=== PATIENT | male | born 1935 | race Caucasian/White ===

== ENCOUNTER 2016-12-24 11:36 | Inpatient (IN) | payer OTHER ==
[2016-12-24 11:41] VITALS: BMI 26.6
[2016-12-24] MEDS ORDERED: NS 1000 ML 1,000 ML ONE ×2 (11:50→13:03)
--- NOTE | 2016-12-24 11:53 | DR.DIZZY ---
HPI - Time seen Time seen: 11:48 - PCP Primary Care Physician: YANIRA - Complaint Chief Complaint Doctor Comments: Patient admits to having a virus. His grandson had it last week and now he has it, just dont feel well. Denies cardipulmonary disease no pain, vomitn or diarrhea. Chief Complaint:: PT. C/O GENERALIZED WEAKNESS, NO APPEPTITE, DEHYDRATION. PT. DENIES PAIN. - Source History Provided: Patient, Family Member - Mode of Arrival Mode of Arrival: Wheelchair - Timing Onset of Chief Complaint: 12/18/16 - Duration Duration: Since Onset Duration: Days - Location of Weakness Weakness Location: None - Context Does pt take pot. toxic medication?: No History of: None Stroke Symptoms: None. denies: Weakness of limb, Numbness of limbs - Severity Severity: Normal activity level - Modifying factors Worsens: Nothing - Associated signs and symptoms Associated Signs and Symptoms: Weak PMH - PMH Past Medical History: Yes Past Medical History: Dyslipidemia, GERD, Hypertension Past Surgical History: Yes Surgical History: Appendectomy, Cholecystectomy - Family History History of Family Medical Conditions: Yes Family Medical History: Diabetes Mellitus, Cancer, [place] - Social History Does patient currently use any type of tobacco product: Yes Have you used tobacco products in the last 12 months: Yes Type of Tobacco Use: Cigarettes Does any household member use tobacco: No Alcohol Use: None Do you use any recreational Drugs:: No Lives With: Spouse Lives Where: Home - infectious screening In the last 2 months have you had wt loss of >10#?: NO Have you had fever, night sweats or hemotysis?: No Have you traveled outside the country in the last 6 months?: No Isolation: Standard ROS - Review of Systems Constitutional: No Symptoms Reported, See HPI, Chills Eyes: No Symptoms Reported ENTM: No Symptoms Reported Respiratoy: No Symptoms Reported Cardiovascular: No Symptoms Reported Gastrointestinal/Abdominal: Nausea. negative: Diarrhea Genitourinary: No Symptoms Reported Neurological: Weakness Musculoskeletal: No Symptoms Reported Integumentary: No Symptoms Reported, Other (cap refill prolonged) Hematologic/Lymphatic: No Symptoms Reported Endocrine: No Symptoms Reported Psychiatric: No Symptoms Reported All Other Systems: Reviewed and Negative PE - Vital Signs Vitals: Temperature 98.8 F Pulse Rate 144 Respiratory Rate 18 Blood Pressure 93/66 O2 Sat by Pulse Oximetry 98 - General Limitations: No Limitations General Appearance: Anxious - Head Head Exam: Normal Inspection, Atraumatic - Eyes Eye exam: Normal Appearance, PERRL, EOMI Pupils: Regular, Round: Left Sclera/Conjunctival: Normal Inspection: Bilateral Anterior Chamber: Normal Inspection: Bilateral Posterior Chamber: Deferred: Bilateral - ENT ENT Exam: Mucous Membranes Dry - Neck Neck Exam: Normal Inspection, Full ROM - Chest Chest Inspection: Normal Inspection, Symmetric Chest Wall Rise - Respiratory Respiratory Exam: Normal Lung Sounds Bilat Respiratory Exam: Bilateral Clear to Auscultation - Cardiovascular Cardiovascular Exam: Tachycardia - Abdominal Exam Abdominal Exam: Normal Inspection, Normal Bowel Sounds Abdominal Tenderness: negative: RUQ, RLQ, LUQ, LLQ, Epigastrium, Suprapubic, Diffuse, Mild, Moderate, Severe, Other - Rectal Rectal Exam: Deferred - Extremeties Extremities Exam: negative: Tenderness, Normal Capillary Refill, Edema, Joint Swelling, Calf Tenderness - Back Back Exam: Normal Inspection - Neurologic Neurological Exam: Alert, Oriented X3, CN II-XII Intact Speech: Expressive Aphasia Cranial Nerve Exam: EOM Function (II, III, IV, ): Normal, Facial Sensation (V) : Normal Motor Strength - LUE: 3/5 Motor Strength - RUE: 3/5 Motor Strength - LLE: 3/5 Motor Strength - RLE: 3/5 Upper Motor Neuron Exam: Jadon Neglect: Normal Sensory Exam Upper Extremity: Light Touch: Normal Sensory Exam Lower Extremity: Light Touch: Normal DTR: achilles tendon (L): 3+ - Psychiatric Psychiatric Exam: Normal Affect, Normal Mood. negative: Homicidal Ideation, Suicidal Ideation - Skin Skin Exam: Warm, Dry, Intact Course - Reevaluation 1st: Improved - Consultation Called: 13:30 (Admit for further evaluation and treatment) ROR - Labs Reviewed Laboratory Results Reviewed?: Yes (pot low, bun elevated, creat elevated glucose elevated) Result Diagrams: 12/24/16 11:50 12/24/16 11:50 Laboratory: WBC 4.7 X10^3/uL (3.6-10.0) 12/24/16 11:50 RBC 5.53 X10^6/uL (4.7-6.0) 12/24/16 11:50 Hgb 16.9 g/dL (13.5-18.0) 12/24/16 11:50 Hct 49.0 % (42.0-54.0) 12/24/16 11:50 MCV 88.6 fL (80.0-100.0) 12/24/16 11:50 MCH 30.6 pg (27.0-34.0) 12/24/16 11:50 MCHC 34.6 g/dL (33.0-35.0) 12/24/16 11:50 RDW 13.6 % (11.6-16.5) 12/24/16 11:50 Plt Count 77 X10^3/uL (150.0-450.0) L 12/24/16 11:50 MPV 9.1 fL (7.4-11.0) 12/24/16 11:50 Neut % 85.9 % (42.0-75.0) H 12/24/16 11:50 Lymph % 7.2 % (21.0-51.0) L 12/24/16 11:50 [place] % 6.5 % (0.0-13.0) 12/24/16 11:50 Eos % 0.1 % (0.9-2.9) L 12/24/16 11:50 Baso % 0.3 % (0.2-1.0) 12/24/16 11:50 Neut # 4.0 x10^3/uL (2.2-4.8) 12/24/16 11:50 Lymph # 0.3 X10^3/uL (1.3-2.9) L 12/24/16 11:50 [place] # 0.3 x10^3/uL (0.3-0.8) 12/24/16 11:50 Eos # 0.0 x10^3/uL (0.0-0.2) 12/24/16 11:50 Baso # 0.0 X10^3/uL (0.0-0.1) 12/24/16 11:50 Absolute Nucleated RBC 0.1 /100WBC 12/24/16 11:50 Sodium 137 mmol/L (136-145) 12/24/16 11:50 Corrected Sodium 140 mmol/L (136-145) 12/24/16 11:50 Potassium 3.4 mmol/L (3.5-5.1) L 12/24/16 11:50 Chloride 100 mmol/L (98-107) 12/24/16 11:50 Carbon Dioxide 25.0 mmol/L (21-32) 12/24/16 11:50 BUN 40 mg/dL (7-18) H 12/24/16 11:50 Creatinine 2.46 mg/dL (0.70-1.30) H 12/24/16 11:50 Est GFR (MDRD) Af Amer 33 (>60) L 12/24/16 11:50 Est GFR (MDRD) Non-Af 27 (>60) L 12/24/16 11:50 Glucose 226 mg/dL (65-99) H 12/24/16 11:50 Calcium 8.8 mg/dL (8.5-10.1) 12/24/16 11:50 Corrected Calcium TNP 12/24/16 11:50 Phosphorus 2.9 mg/dL (2.6-4.7) 12/24/16 11:50 Magnesium 1.9 mg/dL (1.7-2.9) 12/24/16 11:50 Total Bilirubin 0.60 mg/dL (0.2-1.0) 12/24/16 11:50 AST 32 Units/L (15-37) 12/24/16 11:50 ALT 43 Units/L (12-78) 12/24/16 11:50 Alkaline Phosphatase 85 Units/L (46-116) 12/24/16 11:50 Creatine Kinase 56 Units/L (39-308) 12/24/16 11:50 CK-MB (CK-2) < 1.0 ng/mL (0-4.0) 12/24/16 11:50 CK/CKMB % Calc 1.8 % (<4) 12/24/16 11:50 Troponin I < 0.02 ng/mL (0-1.5) 12/24/16 11:50 C-Reactive Protein 31.70 mg/L (0-3.0) H 12/24/16 11:50 Total Protein 7.6 g/dL (6.4-8.2) 12/24/16 11:50 Albumin 3.5 g/dL (3.4-5.0) 12/24/16 11:50 Globulin 4.1 g/dL (2.5-4.5) 12/24/16 11:50 Albumin/Globulin Ratio 0.9 Ratio (1.1-2.1) L 12/24/16 11:50 - XRAY XRAY Interpreted by: Radiologist - EKG Rhythm: Afib Block: AVB - Diagnosis Discharge Problem: Dehydration, Acute prerenal azotemia A-fib Qualifiers: Atrial fibrillation type: unspecified Qualified Code(s): I48.91 - Unspecified atrial fibrillation - Discharge Plan Condition: Stable - Follow ups/Referrals Follow ups/Referrals: NFD,None [Primary Care Provider] - 3 days - Instructions
[2016-12-24] MEDS ORDERED: NS 1000 ML 1,000 ML IV ONE (11:55)
[2016-12-24 12:13] LABS: BASOPHILS % (AUTO) 0.3 % (0.2-1.0); EOSINOPHILS % (AUTO) 0.1 % (0.9-2.9); HEMOGLOBIN 16.9 g/dL (13.5-18.0); LYMPHOCYTES # (AUTO) 0.3 X10^3/uL (1.3-2.9); LYMPHOCYTES % (AUTO) 7.2 % (21.0-51.0); MEAN CORPUSCULAR HEMOGLOBIN 30.6 pg (27.0-34.0); MEAN CORPUSCULAR HGB CONC 34.6 g/dL (33.0-35.0); MEAN CORPUSCULAR VOLUME 88.6 fL (80.0-100.0); MEAN PLATELET VOLUME 9.1 fL (7.4-11.0); MONOCYTES # (AUTO) 0.3 x10^3/uL (0.3-0.8); MONOCYTES % (AUTO) 6.5 % (0.0-13.0); NEUTROPHILS % (AUTO) 85.9 % (42.0-75.0); PLATELET COUNT 77 X10^3/uL (150.0-450.0); RED BLOOD COUNT 5.53 X10^6/uL (4.7-6.0); RED CELL DISTRIBUTION WIDTH 13.6 % (11.6-16.5); WHITE BLOOD COUNT 4.7 X10^3/uL (3.6-10.0)
[2016-12-24 12:25] LABS: BLOOD UREA NITROGEN 40 mg/dL (7-18); CALCIUM 8.8 mg/dL (8.5-10.1); CHLORIDE 100 mmol/L (98-107); COR NA(FOR HYPERGLY) 140 mmol/L (136-145); CREATININE 2.46 mg/dL (0.70-1.30); GLUCOSE 226 mg/dL (65-99); SODIUM 137 mmol/L (136-145); TROPONIN I < 0.02 ng/mL (0-1.5); eGFR BLACK RACES 33 (>60); eGFR NON BLACK RACES 27 (>60)
[2016-12-24 12:29] LABS: ALANINE AMINOTRANSFERASE 43 Units/L (12-78); ALBUMIN 3.5 g/dL (3.4-5.0); ALKALINE PHOSPHATASE 85 Units/L (46-116); ASPARTATE AMINO TRANSFERASE 32 Units/L (15-37); CKMB % 1.8 % (<4); CREATINE KINASE 56 Units/L (39-308); CREATINE KINASE MB < 1.0 ng/mL (0-4.0); TOTAL PROTEIN 7.6 g/dL (6.4-8.2)
[2016-12-24 12:48] LABS: MAGNESIUM 1.9 mg/dL (1.7-2.9); PHOSPHORUS 2.9 mg/dL (2.6-4.7)
[2016-12-24] MEDS ORDERED: ZOFRAN INJ 4 MG VIAL IVP PRN (13:46)
[2016-12-24] MEDS ORDERED: MORPHINE SULFATE INJ 2 MG IVP PRN (13:47)
[2016-12-24] MEDS ORDERED: [UNRECOGNIZED DRUG - OTHER] PO PRN (13:48)
[2016-12-24] MEDS ORDERED: BENTYL CAP 10 MG PO PRN (13:48)
[2016-12-24] MEDS ORDERED: HYDROCHLOROTHIAZIDE 25 MG TAB PO SCH (14:00)
[2016-12-24] MEDS ORDERED: NS 1000 ML 1,000 ML IV SCH ×2 (14:00)
--- NOTE | 2016-12-24 14:04 | RAD ---
Chest, one view Indication: Shortness of breath. Comparison: None Findings: There is mild cardiac silhouette enlargement with pulmonary vascular congestion. There is mild coarsening of the interstitium, slightly more prominent on the right. No dense infiltrates, ple ural effusion, or pneumothorax identified. Impression: Cardiomegaly with suggestion of mild asymmetric pulmonary edema. Reported By:
[2016-12-24 14:05] LABS: BILIRUBIN,URINE NEGATIVE (NEGATIVE); BLOOD/HEMOGLOBIN,URINE 1+ (NEGATIVE); GLUCOSE, URINE NEGATIVE (NEGATIVE); KETONES,URINE NEGATIVE (NEGATIVE); LEUKOCYTE ESTERASE ,URINE NEGATIVE (NEGATIVE); NITRITES,URINE NEGATIVE (NEGATIVE); PROTEIN,URINE 1+ (NEGATIVE); UROBILINOGEN,URINE NORMAL (NORMAL)
[2016-12-24 14:21] LABS: APPEARANCE,URINE CLEAR (CLEAR); COLOR,URINE YELLOW (YELLOW)
[2016-12-24 14:22] LABS: AMORPHOUS SEDIMENT,UR TRACE /HPF (NEGATIVE); BACTERIA,URINE NEGATIVE /HPF (NEGATIVE); MUCUS,URINE MODERATE /HPF (NEGATIVE); RBC,URINE RARE /HPF (NEGATIVE); SQUAMOUS EPITHELIAL CELL,UR RARE /HPF (NEGATIVE)
[2016-12-24] MEDS: ROCEPHIN VIAL 1 GM 1 GM in NS 50 ML IV + SPIKE MINIBAG* 50 ML IV SCH (17:11)
[2016-12-24] MEDS: NS 1000 ML 1,000 ML IV SCH ×2 (17:28→21:58)
[2016-12-24] MEDS: LOPRESSOR TAB 25 MG PO SCH (20:53)
[2016-12-24] MEDS: CELEXA PO SCH (20:53)
[2016-12-24] MEDS: PROSCAR PO SCH (20:53)
[2016-12-24] MEDS: ZANTAC PO SCH (20:53)
[2016-12-24] MEDS: XANAX PO PRN (21:57)
[2016-12-25 05:09] LABS: BASOPHILS % (AUTO) 0.4 % (0.2-1.0); EOSINOPHILS % (AUTO) 0.7 % (0.9-2.9); HEMATOCRIT 42.8 % (42.0-54.0); HEMOGLOBIN 14.9 g/dL (13.5-18.0); LYMPHOCYTES # (AUTO) 0.9 X10^3/uL (1.3-2.9); LYMPHOCYTES % (AUTO) 27.7 % (21.0-51.0); MEAN CORPUSCULAR HGB CONC 34.9 g/dL (33.0-35.0); MEAN CORPUSCULAR VOLUME 88.7 fL (80.0-100.0); MEAN PLATELET VOLUME 9.2 fL (7.4-11.0); MONOCYTES # (AUTO) 0.3 x10^3/uL (0.3-0.8); MONOCYTES % (AUTO) 9.2 % (0.0-13.0); PLATELET COUNT 70 X10^3/uL (150.0-450.0); RED BLOOD COUNT 4.82 X10^6/uL (4.7-6.0); RED CELL DISTRIBUTION WIDTH 13.8 % (11.6-16.5); WHITE BLOOD COUNT 3.2 X10^3/uL (3.6-10.0)
[2016-12-25 05:18] LABS: ALANINE AMINOTRANSFERASE 36 Units/L (12-78); ALBUMIN 2.9 g/dL (3.4-5.0); ALKALINE PHOSPHATASE 67 Units/L (46-116); ASPARTATE AMINO TRANSFERASE 28 Units/L (15-37); BLOOD UREA NITROGEN 28 mg/dL (7-18); CALCIUM 8.2 mg/dL (8.5-10.1); CARBON DIOXIDE 24.7 mmol/L (21-32); CHLORIDE 105 mmol/L (98-107); COR CA(FOR HYPOALB) 9.1 mg/dL (8.5-10.1); CREATININE 1.76 mg/dL (0.70-1.30); GLUCOSE 105 mg/dL (65-99); SODIUM 141 mmol/L (136-145); TOTAL PROTEIN 6.6 g/dL (6.4-8.2); eGFR BLACK RACES 48 (>60); eGFR NON BLACK RACES 40 (>60)
--- NOTE | 2016-12-25 06:30 | RAD ---
HISTORY: Atrial fibrillation Study: Chest one view Comparison: December 24, 2016 Findings: The heart is enlarged. No definite congestive heart failure is identified. No acute alveolar infiltr ates or pleural effusions are identified. Bony thorax is unremarkable. IMPRESSION: Cardiomegaly without congestive heart failure Lungs clear Reported By:
[2016-12-25] MEDS ORDERED: ZESTRIL TAB 20 MG ONE (08:27)
[2016-12-25] MEDS ORDERED: K-LYTE EFFERVESCENT PO PRN (08:29)
[2016-12-25] MEDS ORDERED: K-DUR TAB 20 MEQ PO PRN (08:29)
[2016-12-25] MEDS ORDERED: POTASSIUM CHLORIDE LIQ 20 MEQ UDC PO PRN (08:29)
[2016-12-25] MEDS ORDERED: K-RIDER 10 MEQ/NS 100 ML 10 MEQ/100 ML BAG IV PRN (08:29)
[2016-12-25] MEDS: ZANTAC PO SCH (08:51)
[2016-12-25] MEDS: NORVASC TAB 10 MG PO SCH (08:51)
[2016-12-25] MEDS: LOPRESSOR TAB 25 MG PO SCH ×2 (08:51→21:57)
[2016-12-25] MEDS: ROCEPHIN VIAL 1 GM 1 GM in NS 50 ML IV + SPIKE MINIBAG* 50 ML IV SCH (08:51)
[2016-12-25] MEDS: NS 1000 ML 1,000 ML IV SCH ×2 (08:59→21:58)
[2016-12-25] MEDS ORDERED: ZESTRIL TAB 20 MG PO SCH (09:00)
[2016-12-25] MEDS ORDERED: COZAAR PO SCH (09:00)
[2016-12-25] MEDS: XANAX PO PRN ×2 (10:23→21:57)
[2016-12-25 14:37] LABS: TOTAL PSA 1.46 ng/mL (0.13-4.0)
[2016-12-25 14:42] LABS: HEMOGLOBIN A1C 5.9 % (4.5-6.2)
[2016-12-25] MEDS: CELEXA PO SCH (21:57)
[2016-12-25] MEDS: PROSCAR PO SCH (21:57)
[2016-12-25] MEDS: FLOMAX PO SCH (21:57)
[2016-12-25] MEDS ORDERED: DUONEB 0.5 MG/3 MG NEB PRN (21:57)
[2016-12-26 05:23] LABS: BASOPHILS % (AUTO) 0.6 % (0.2-1.0); EOSINOPHILS # (AUTO) 0.1 x10^3/uL (0.0-0.2); EOSINOPHILS % (AUTO) 2.5 % (0.9-2.9); HEMATOCRIT 40.2 % (42.0-54.0); LYMPHOCYTES # (AUTO) 0.9 X10^3/uL (1.3-2.9); MEAN CORPUSCULAR HEMOGLOBIN 30.9 pg (27.0-34.0); MEAN CORPUSCULAR HGB CONC 34.8 g/dL (33.0-35.0); MEAN CORPUSCULAR VOLUME 88.7 fL (80.0-100.0); MEAN PLATELET VOLUME 8.9 fL (7.4-11.0); MONOCYTES # (AUTO) 0.2 x10^3/uL (0.3-0.8); MONOCYTES % (AUTO) 8.7 % (0.0-13.0); NEUTROPHILS # (AUTO) 1.5 x10^3/uL (2.2-4.8); NEUTROPHILS % (AUTO) 55.2 % (42.0-75.0); PLATELET COUNT 60 X10^3/uL (150.0-450.0); RED BLOOD COUNT 4.53 X10^6/uL (4.7-6.0); WHITE BLOOD COUNT 2.7 X10^3/uL (3.6-10.0)
[2016-12-26 05:36] LABS: ALANINE AMINOTRANSFERASE 30 Units/L (12-78); ALBUMIN 2.6 g/dL (3.4-5.0); ALKALINE PHOSPHATASE 58 Units/L (46-116); ASPARTATE AMINO TRANSFERASE 26 Units/L (15-37); BLOOD UREA NITROGEN 24 mg/dL (7-18); CARBON DIOXIDE 23.4 mmol/L (21-32); CHLORIDE 110 mmol/L (98-107); COR CA(FOR HYPOALB) 9.1 mg/dL (8.5-10.1); CREATININE 1.56 mg/dL (0.70-1.30); GLUCOSE 92 mg/dL (65-99); MAGNESIUM 1.9 mg/dL (1.7-2.9); SODIUM 145 mmol/L (136-145); TOTAL PROTEIN 6.1 g/dL (6.4-8.2); eGFR BLACK RACES 55 (>60); eGFR NON BLACK RACES 46 (>60)
--- NOTE | 2016-12-26 07:04 | RAD ---
HISTORY: Atrial fibrillation Study: Chest one view Comparison: December 25, 2016 Findings: The heart remains enlarged. No congestive heart failure is noted. The aorta is calcified and mildly ectatic. The lungs are free of acute alveolar infiltrates. No pleural effusions are identified. The bony thorax is unremarkable. IMPRESSION: Cardiomegaly without congestive heart failure Lungs clear Reported By:
[2016-12-26] MEDS ORDERED: NS 1000 ML 1,000 ML IV SCH (09:00)
[2016-12-26] MEDS: LOPRESSOR TAB 25 MG PO SCH ×2 (10:46→20:14)
[2016-12-26] MEDS: ROCEPHIN VIAL 1 GM 1 GM in NS 50 ML IV + SPIKE MINIBAG* 50 ML IV SCH (10:46)
[2016-12-26] MEDS: COZAAR PO SCH (10:46)
[2016-12-26] MEDS: NORVASC TAB 10 MG PO SCH (10:47)
[2016-12-26] MEDS: ZANTAC PO SCH (10:47)
[2016-12-26] MEDS: SOLU-MEDROL 40 MG VIAL IVP SCH ×2 (14:40→21:20)
--- NOTE | 2016-12-26 17:36 | DR.H&P ---
Addendum entered and electronically signed by PETER WRIGHT 12/26/16 17:42: assessment and plan #1 dehydration: Administer IV fluids, repeat a.m. labs #2 influenza B: Symptomatic treatment, IV hydration, IV antibiotics for secondary sinusitis and bronchitis, fever management #3 acute bronchitis: Respiratory consult, continue IV antibiotics, encourage respiratory toileting #4 hypertension: Resume home meds, monitor #5 atrial fib: EKG on admission, continue beta lexie, blood pressure control Original Note: H&P - History & Physical for Day of: H&P Date: 12/24/16 - Chief Complaint Chief Complaint: Patient admits to having a virus. His grandson had it last week and now he has it, just dont feel well. - Allergies Allergies/Adverse Reactions: Allergies Allergy/AdvReac Type Severity Reaction Status Date / Time No Known Drug Allergy Allergy Verified 12/24/16 11:41 - History of Present Illness History of Present Illness: patient is a 81-year-old white male who presented to the emergency room with complaints of generalized weakness and fever and body aches. Patient had been exposed to a family member who is positive for the flu. Patient has a past medical history of hypertension, mild renal insufficiency, osteoarthritis, and tobacco abuse. Patient tested positive for influenza B. On admission patient is chemistry revealed dehydration. Patient was admitted for IV hydration and treatment for influenza and further evaluation of weakness. Patient also had an EKG on admission which revealed atrial fibrillation, controlled rate. Patient does take a beta lexie but was unaware of any history of a fib - Past Medical History Past Medical History: Dyslipidemia, GERD, Hypertension - Past Surgical History Surgical History: Appendectomy, Cholecystectomy - Family History Family Medical History: Diabetes Mellitus, Cancer, [place] - Social History Does patient currently use any type of tobacco product: Yes Have you used tobacco products in the last 12 months: Yes Type of Tobacco Use: Cigarettes How many years tobacco product used: 60 Does any household member use tobacco: No Alcohol Use: None Drug Use: None - Medications Home Medications: Alprazolam [Xanax 1 mg] 1 tab PO BID PRN 12/24/16 [History Confirmed 12/24/16] Amlodipine Besylate [NORVASC 10 MG *] 1 tab PO DAILY 12/24/16 [History Confirmed 12/24/16] Citalopram 20 mg Tab [CELEXA 20 MG *] 1 tab PO HS 12/24/16 [History Confirmed ] Dicyclomine HCl [BENTYL CAP 10 MG *] 1 cap PO DAILY PRN 12/24/16 [History Confirmed 12/24/16] Finasteride [PROSCAR 5 MG *] 1 tab PO HS 12/24/16 [History Confirmed 12/24/16] Hydrochlorothiazide [HYDROCHLOROTHIAZIDE 25 MG TAB *] 1 tab PO .EVENING [History Confirmed 12/24/16] Lisinopril [ZESTRIL *] 1 tab PO DAILY 12/24/16 [History Confirmed 12/24/16] Losartan Potassium [LOSARTAN POTASSIUM 50 MG *] 1 tab PO DAILY 12/24/16 [ History Confirmed 12/24/16] Metoprolol Tartrate [LOPRESSOR 25 MG *] 1 tab PO BID 12/24/16 [History Confirmed 12/24/16] Ranitidine HCl [ZANTAC TAB 150 MG *] 1 tab PO BID 12/24/16 [History Confirmed ] Tamsulosin HCl [FLOMAX (GENERIC) 0.4 MG *] 1 cap PO HS 12/24/16 [History Confirmed 12/24/16] - Review of Systems Constitutional: Fever, Chills, Weakness - Physical Exam Vital Signs: Temperature 97.6 F Pulse Rate [Right Brachial] 78 Pulse Rate [Left Brachial] 71 Pulse Rate 81 Respiratory Rate 20 Blood Pressure [Right Arm] 128/68 Blood Pressure [Left Arm] 125/72 O2 Sat by Pulse Oximetry 94
--- NOTE | 2016-12-26 17:45 | PCM.PROG ---
Progress Note - Progress Note for Day of Date: 12/25/16 - Subjective Subjective: continued weakness, chest congestion, coughing - Past Medical Family Social History Past Med/Fam/Surg Hx: No changes since H&P Allergies: Allergies No Known Drug Allergy Allergy (Verified 12/24/16 11:41) - Review of Systems ROS: No change since H&P - Vital Signs and I&O's Vital Signs: Temperature 97.6 F Pulse Rate [Right Brachial] 78 Pulse Rate [Left Brachial] 71 Pulse Rate 81 Respiratory Rate 20 Blood Pressure [Right Arm] 128/68 Blood Pressure [Left Arm] 125/72 O2 Sat by Pulse Oximetry 94 Intake and Output: Intake & Output 12/24/16 12/25/16 12/26/16 12/27/16 11:59 11:59 11:59 11:59 Intake Total 1000 2160 840 Output Total 0 Balance 1000 2160 840 - Physical Exam Oriented: Normal Eyes: Normal Ear: Normal Nose: Normal Throat: Normal Respiratory: Wheezes (exp wheezes to bilateral lung bases), Rhonchi Cardiovascular: Irregular (afib, controlled rate) : Normal Auscultation: Bowel Sounds: Normal Palpation: Normal Tenderness: Normal Skin: Normal Musculoskeletal: Normal Psychiatric: Anxiety Speech Pattern: Clear, Appropriate - Laboratory and Diagnostics Result Diagrams: 12/26/16 03:30 12/26/16 03:30 Labs: Laboratory WBC 2.7 X10^3/uL (3.6-10.0) L 12/26/16 03:30 RBC 4.53 X10^6/uL (4.7-6.0) L 12/26/16 03:30 Hgb 14.0 g/dL (13.5-18.0) 12/26/16 03:30 Hct 40.2 % (42.0-54.0) L 12/26/16 03:30 MCV 88.7 fL (80.0-100.0) 12/26/16 03:30 MCH 30.9 pg (27.0-34.0) 12/26/16 03:30 MCHC 34.8 g/dL (33.0-35.0) 12/26/16 03:30 RDW 14.0 % (11.6-16.5) 12/26/16 03:30 Plt Count 60 X10^3/uL (150.0-450.0) L 12/26/16 03:30 MPV 8.9 fL (7.4-11.0) 12/26/16 03:30 Neut % 55.2 % (42.0-75.0) 12/26/16 03:30 Lymph % 33.0 % (21.0-51.0) 12/26/16 03:30 [place] % 8.7 % (0.0-13.0) 12/26/16 03:30 Eos % 2.5 % (0.9-2.9) 12/26/16 03:30 Baso % 0.6 % (0.2-1.0) 12/26/16 03:30 Neut # 1.5 x10^3/uL (2.2-4.8) L 12/26/16 03:30 Lymph # 0.9 X10^3/uL (1.3-2.9) L 12/26/16 03:30 [place] # 0.2 x10^3/uL (0.3-0.8) L 12/26/16 03:30 Eos # 0.1 x10^3/uL (0.0-0.2) 12/26/16 03:30 Baso # 0.0 X10^3/uL (0.0-0.1) 12/26/16 03:30 Absolute Nucleated RBC 0.1 /100WBC 12/26/16 03:30 Sodium 145 mmol/L (136-145) 12/26/16 03:30 Corrected Sodium TNP 12/26/16 03:30 Potassium 3.5 mmol/L (3.5-5.1) 12/26/16 03:30 Chloride 110 mmol/L (98-107) H 12/26/16 03:30 Carbon Dioxide 23.4 mmol/L (21-32) 12/26/16 03:30 BUN 24 mg/dL (7-18) H 12/26/16 03:30 Creatinine 1.56 mg/dL (0.70-1.30) H 12/26/16 03:30 Est GFR (MDRD) Af Amer 55 (>60) L 12/26/16 03:30 Est GFR (MDRD) Non-Af 46 (>60) L 12/26/16 03:30 Glucose 92 mg/dL (65-99) 12/26/16 03:30 Hemoglobin A1c 5.9 % (4.5-6.2) 12/25/16 12:20 Calcium 8.0 mg/dL (8.5-10.1) L 12/26/16 03:30 Corrected Calcium 9.1 mg/dL (8.5-10.1) 12/26/16 03:30 Phosphorus 2.9 mg/dL (2.6-4.7) 12/24/16 11:50 Magnesium 1.9 mg/dL (1.7-2.9) 12/26/16 03:30 Total Bilirubin 0.40 mg/dL (0.2-1.0) 12/26/16 03:30 AST 26 Units/L (15-37) 12/26/16 03:30 ALT 30 Units/L (12-78) 12/26/16 03:30 Alkaline Phosphatase 58 Units/L (46-116) 12/26/16 03:30 Creatine Kinase 56 Units/L (39-308) 12/24/16 11:50 CK-MB (CK-2) < 1.0 ng/mL (0-4.0) 12/24/16 11:50 CK/CKMB % Calc 1.8 % (<4) 12/24/16 11:50 Troponin I < 0.02 ng/mL (0-1.5) 12/24/16 11:50 C-Reactive Protein 31.70 mg/L (0-3.0) H 12/24/16 11:50 Total Protein 6.1 g/dL (6.4-8.2) L 12/26/16 03:30 Albumin 2.6 g/dL (3.4-5.0) L 12/26/16 03:30 Globulin 3.5 g/dL (2.5-4.5) 12/26/16 03:30 Albumin/Globulin Ratio 0.7 Ratio (1.1-2.1) L 12/26/16 03:30 Total PSA 1.46 ng/mL (0.13-4.0) 12/25/16 12:20 Specimen Type Clean catch urine 12/24/16 13:38 Urine Color Yellow (YELLOW) 12/24/16 13:38 Urine Appearance Clear (CLEAR) 12/24/16 13:38 Urine pH 5.0 (5.0 - 8.0) 12/24/16 13:38 Ur Specific [place] 1.015 (1.000-1.030) 12/24/16 13:38 Urine Protein 1+ (NEGATIVE) 12/24/16 13:38 Urine Glucose (UA) Negative (NEGATIVE) 12/24/16 13:38 Urine Ketones Negative (NEGATIVE) 12/24/16 13:38 Urine Occult Blood 1+ (NEGATIVE) 12/24/16 13:38 Urine Nitrite Negative (NEGATIVE) 12/24/16 13:38 Urine Bilirubin Negative (NEGATIVE) 12/24/16 13:38 Urine Urobilinogen Normal (NORMAL) 12/24/16 13:38 Ur Leukocyte Esterase Negative (NEGATIVE) 12/24/16 13:38 Urine RBC Rare /HPF (NEGATIVE) 12/24/16 13:38 Urine WBC None seen /HPF (NEGATIVE) 12/24/16 13:38 Ur Squamous Epith Cells Rare /HPF (NEGATIVE) 12/24/16 13:38 Amorphous Sediment Trace /HPF (NEGATIVE) 12/24/16 13:38 Urine Bacteria Negative /HPF (NEGATIVE) 12/24/16 13:38 Urine Mucus Moderate /HPF (NEGATIVE) 12/24/16 13:38 Ur Culture Indicated? No/not indicated 12/24/16 13:38 Influenza A (H1N1) PCR Not detected (NOT DETECT) 12/24/16 13:38 Influenza Type A (PCR) Negative (NEGATIVE) 12/24/16 13:38 Influenza Type B (PCR) Positive (NEGATIVE) A 12/24/16 13:38 Assessment/Plan - Assessment Assessment: #1 dehydration: Administer IV fluids, improving renal function, repeat a.m. labs #2 influenza B: Symptomatic treatment, IV hydration, IV antibiotics for secondary sinusitis and bronchitis, fever management #3 acute bronchitis: Respiratory consult, continue IV antibiotics, encourage respiratory toileting #4 hypertension: Resume home meds, monitor #5 atrial fib: EKG on admission, continue beta lexie, blood pressure control
--- NOTE | 2016-12-26 17:49 | PCM.PROG ---
Progress Note - Progress Note for Day of Date: 12/26/16 - Subjective Subjective: patient states he feels a little bit better, less coughing, denies any fever, "doesn't want to leave and unless he is well" - Past Medical Family Social History Past Med/Fam/Surg Hx: No changes since H&P Allergies: Allergies No Known Drug Allergy Allergy (Verified 12/24/16 11:41) - Review of Systems ROS: No change since H&P - Vital Signs and I&O's Vital Signs: Temperature 97.6 F Pulse Rate [Right Brachial] 78 Pulse Rate [Left Brachial] 71 Pulse Rate 81 Respiratory Rate 20 Blood Pressure [Right Arm] 128/68 Blood Pressure [Left Arm] 125/72 O2 Sat by Pulse Oximetry 94 Intake and Output: Intake & Output 12/24/16 12/25/16 12/26/16 12/27/16 11:59 11:59 11:59 11:59 Intake Total 1000 2160 840 Output Total 0 Balance 1000 2160 840 - Physical Exam Oriented: Normal Eyes: Normal Ear: Normal Nose: Normal Throat: Normal Respiratory: Wheezes (exp wheezes to bilateral lung bases), Rhonchi Cardiovascular: Irregular (afib, controlled rate) : Normal Auscultation: Bowel Sounds: Normal Tenderness: Normal Skin: Normal Musculoskeletal: Normal Psychiatric: Anxiety Speech Pattern: Clear, Appropriate - Laboratory and Diagnostics Result Diagrams: 12/26/16 03:30 12/26/16 03:30 Labs: Laboratory WBC 2.7 X10^3/uL (3.6-10.0) L 12/26/16 03:30 RBC 4.53 X10^6/uL (4.7-6.0) L 12/26/16 03:30 Hgb 14.0 g/dL (13.5-18.0) 12/26/16 03:30 Hct 40.2 % (42.0-54.0) L 12/26/16 03:30 MCV 88.7 fL (80.0-100.0) 12/26/16 03:30 MCH 30.9 pg (27.0-34.0) 12/26/16 03:30 MCHC 34.8 g/dL (33.0-35.0) 12/26/16 03:30 RDW 14.0 % (11.6-16.5) 12/26/16 03:30 Plt Count 60 X10^3/uL (150.0-450.0) L 12/26/16 03:30 MPV 8.9 fL (7.4-11.0) 12/26/16 03:30 Neut % 55.2 % (42.0-75.0) 12/26/16 03:30 Lymph % 33.0 % (21.0-51.0) 12/26/16 03:30 [place] % 8.7 % (0.0-13.0) 12/26/16 03:30 Eos % 2.5 % (0.9-2.9) 12/26/16 03:30 Baso % 0.6 % (0.2-1.0) 12/26/16 03:30 Neut # 1.5 x10^3/uL (2.2-4.8) L 12/26/16 03:30 Lymph # 0.9 X10^3/uL (1.3-2.9) L 12/26/16 03:30 [place] # 0.2 x10^3/uL (0.3-0.8) L 12/26/16 03:30 Eos # 0.1 x10^3/uL (0.0-0.2) 12/26/16 03:30 Baso # 0.0 X10^3/uL (0.0-0.1) 12/26/16 03:30 Absolute Nucleated RBC 0.1 /100WBC 12/26/16 03:30 Sodium 145 mmol/L (136-145) 12/26/16 03:30 Corrected Sodium TNP 12/26/16 03:30 Potassium 3.5 mmol/L (3.5-5.1) 12/26/16 03:30 Chloride 110 mmol/L (98-107) H 12/26/16 03:30 Carbon Dioxide 23.4 mmol/L (21-32) 12/26/16 03:30 BUN 24 mg/dL (7-18) H 12/26/16 03:30 Creatinine 1.56 mg/dL (0.70-1.30) H 12/26/16 03:30 Est GFR (MDRD) Af Amer 55 (>60) L 12/26/16 03:30 Est GFR (MDRD) Non-Af 46 (>60) L 12/26/16 03:30 Glucose 92 mg/dL (65-99) 12/26/16 03:30 Hemoglobin A1c 5.9 % (4.5-6.2) 12/25/16 12:20 Calcium 8.0 mg/dL (8.5-10.1) L 12/26/16 03:30 Corrected Calcium 9.1 mg/dL (8.5-10.1) 12/26/16 03:30 Phosphorus 2.9 mg/dL (2.6-4.7) 12/24/16 11:50 Magnesium 1.9 mg/dL (1.7-2.9) 12/26/16 03:30 Total Bilirubin 0.40 mg/dL (0.2-1.0) 12/26/16 03:30 AST 26 Units/L (15-37) 12/26/16 03:30 ALT 30 Units/L (12-78) 12/26/16 03:30 Alkaline Phosphatase 58 Units/L (46-116) 12/26/16 03:30 Creatine Kinase 56 Units/L (39-308) 12/24/16 11:50 CK-MB (CK-2) < 1.0 ng/mL (0-4.0) 12/24/16 11:50 CK/CKMB % Calc 1.8 % (<4) 12/24/16 11:50 Troponin I < 0.02 ng/mL (0-1.5) 12/24/16 11:50 C-Reactive Protein 31.70 mg/L (0-3.0) H 12/24/16 11:50 Total Protein 6.1 g/dL (6.4-8.2) L 12/26/16 03:30 Albumin 2.6 g/dL (3.4-5.0) L 12/26/16 03:30 Globulin 3.5 g/dL (2.5-4.5) 12/26/16 03:30 Albumin/Globulin Ratio 0.7 Ratio (1.1-2.1) L 12/26/16 03:30 Total PSA 1.46 ng/mL (0.13-4.0) 12/25/16 12:20 Specimen Type Clean catch urine 12/24/16 13:38 Urine Color Yellow (YELLOW) 12/24/16 13:38 Urine Appearance Clear (CLEAR) 12/24/16 13:38 Urine pH 5.0 (5.0 - 8.0) 12/24/16 13:38 Ur Specific [place] 1.015 (1.000-1.030) 12/24/16 13:38 Urine Protein 1+ (NEGATIVE) 12/24/16 13:38 Urine Glucose (UA) Negative (NEGATIVE) 12/24/16 13:38 Urine Ketones Negative (NEGATIVE) 12/24/16 13:38 Urine Occult Blood 1+ (NEGATIVE) 12/24/16 13:38 Urine Nitrite Negative (NEGATIVE) 12/24/16 13:38 Urine Bilirubin Negative (NEGATIVE) 12/24/16 13:38 Urine Urobilinogen Normal (NORMAL) 12/24/16 13:38 Ur Leukocyte Esterase Negative (NEGATIVE) 12/24/16 13:38 Urine RBC Rare /HPF (NEGATIVE) 12/24/16 13:38 Urine WBC None seen /HPF (NEGATIVE) 12/24/16 13:38 Ur Squamous Epith Cells Rare /HPF (NEGATIVE) 12/24/16 13:38 Amorphous Sediment Trace /HPF (NEGATIVE) 12/24/16 13:38 Urine Bacteria Negative /HPF (NEGATIVE) 12/24/16 13:38 Urine Mucus Moderate /HPF (NEGATIVE) 12/24/16 13:38 Ur Culture Indicated? No/not indicated 12/24/16 13:38 Influenza A (H1N1) PCR Not detected (NOT DETECT) 12/24/16 13:38 Influenza Type A (PCR) Negative (NEGATIVE) 12/24/16 13:38 Influenza Type B (PCR) Positive (NEGATIVE) A 12/24/16 13:38 - Plan (1) Influenza B Status: Acute Plan: iv hydration, symptomatic treatment (2) Hypertension Status: Acute Qualifiers: Hypertension type: H Plan: DC lisinopril. Increase losartan to 100 mg daily continue beta lexie and amlodipine (3) Acute bronchitis Status: Acute Qualifiers: Bronchitis organism: B Plan: resp therapy, repeat am cxr. add symbicort inhaler and solu medrol 40 iv x 3 doses for wheezing (4) A-fib Status: Acute Qualifiers: Atrial fibrillation type: unspecified Qualified Code(s): I48.91 - Unspecified atrial fibrillation Plan: controlled rate, bp control. continue bb, repeat ekg (5) Dehydration Status: Acute Plan: improving renal function, repeat am cmp
[2016-12-26] MEDS: PROSCAR PO SCH (20:14)
[2016-12-26] MEDS: FLOMAX PO SCH (20:14)
[2016-12-26] MEDS: CELEXA PO SCH (20:14)
[2016-12-26] MEDS: XANAX PO PRN (20:18)
[2016-12-26] MEDS: SYMBICORT INH 160/4.5 mcg IN SCH (20:30)
[2016-12-27] MEDS: SOLU-MEDROL 40 MG VIAL IVP SCH (05:20)
[2016-12-27 05:38] LABS: BASOPHILS % (AUTO) 0.2 % (0.2-1.0); EOSINOPHILS % (AUTO) 0.2 % (0.9-2.9); HEMATOCRIT 43.4 % (42.0-54.0); LYMPHOCYTES # (AUTO) 0.4 X10^3/uL (1.3-2.9); LYMPHOCYTES % (AUTO) 19.7 % (21.0-51.0); MEAN CORPUSCULAR HGB CONC 34.6 g/dL (33.0-35.0); MEAN CORPUSCULAR VOLUME 89.8 fL (80.0-100.0); MEAN PLATELET VOLUME 8.6 fL (7.4-11.0); MONOCYTES # (AUTO) 0.1 x10^3/uL (0.3-0.8); MONOCYTES % (AUTO) 3.8 % (0.0-13.0); NEUTROPHILS # (AUTO) 1.6 x10^3/uL (2.2-4.8); NEUTROPHILS % (AUTO) 76.1 % (42.0-75.0); PLATELET COUNT 73 X10^3/uL (150.0-450.0); RED BLOOD COUNT 4.84 X10^6/uL (4.7-6.0); RED CELL DISTRIBUTION WIDTH 13.5 % (11.6-16.5); WHITE BLOOD COUNT 2.1 X10^3/uL (3.6-10.0)
[2016-12-27 05:39] LABS: CALCIUM 8.5 mg/dL (8.5-10.1); CARBON DIOXIDE 22.9 mmol/L (21-32); COR CA(FOR HYPOALB) 9.3 mg/dL (8.5-10.1); CREATININE 1.51 mg/dL (0.70-1.30)
--- NOTE | 2016-12-27 06:05 | RAD ---
HISTORY: Wheezing, shortness of breath Study: Chest one view Comparison: December 26, 2016 Findings: The heart is enlarged. No congestive heart failure is noted. No acute alveolar infiltrates are ident ified. No pleural effusions are identified. Calcified granulomas are present in the right lung. The bony thorax is unremarkable. IMPRESSION: Cardiomegaly without congestive heart failure No acute infiltrates Old granulomatous disease Reported By:
[2016-12-27 06:11] LABS: BAND NEUTROPHILS % 6 % (0-10)
[2016-12-27 06:12] LABS: PLATELET MORPHOLOGY COMMENT NORMAL (NORMAL)
[2016-12-27] MEDS: NORVASC TAB 10 MG PO SCH (08:38)
[2016-12-27] MEDS: ZANTAC PO SCH (08:38)
[2016-12-27] MEDS: COZAAR PO SCH (08:38)
[2016-12-27] MEDS: LOPRESSOR TAB 25 MG PO SCH (08:38)
[2016-12-27] MEDS: ROCEPHIN VIAL 1 GM 1 GM in NS 50 ML IV + SPIKE MINIBAG* 50 ML IV SCH (08:39)
[2016-12-27] MEDS: SYMBICORT INH 160/4.5 mcg IN SCH (08:54)
[2016-12-27 11:55] VITALS: BP 140/72
--- NOTE | 2017-01-10 15:28 | PCM.DCPLAN ---
Discharge Summary - Admission Date Date of Admission: 12/24/16 - Discharge Date Discharge Date: 12/27/16 - Admission Diagnoses (1) Influenza B Status: Acute (2) Hypertension Status: Acute (3) Acute bronchitis Status: Acute (4) A-fib Status: Acute (5) Dehydration Status: Acute - Discharge Diagnoses Discharge Diagnosis: same as admission - Discharge Medications Discharge Medications: Alprazolam [Xanax 1 mg] 1 tab PO BID PRN 12/24/16 [History] Amlodipine Besylate [NORVASC 10 MG *] 1 tab PO DAILY 12/24/16 [History] Citalopram 20 mg Tab [CELEXA 20 MG *] 1 tab PO HS 12/24/16 [History] Dicyclomine HCl [BENTYL CAP 10 MG *] 1 cap PO DAILY PRN 12/24/16 [History] Finasteride [PROSCAR 5 MG *] 1 tab PO HS 12/24/16 [History] Hydrochlorothiazide [HYDROCHLOROTHIAZIDE 25 MG TAB *] 1 tab PO .EVENING [History] Metoprolol Tartrate [LOPRESSOR 25 MG *] 1 tab PO BID 12/24/16 [History] Ranitidine HCl [ZANTAC TAB 150 MG *] 1 tab PO BID 12/24/16 [History] Tamsulosin HCl [FLOMAX (GENERIC) 0.4 MG *] 1 cap PO HS 12/24/16 [History] Losartan Potassium 100 mg PO DAILY #30 tab 12/27/16 [Rx] - Hospital Course Vital Signs: Temperature 97.6 F Pulse Rate [Right Brachial] 65 Pulse Rate [Left Brachial] 71 Pulse Rate 69 Respiratory Rate 20 Blood Pressure [Right Arm] 140/72 Blood Pressure [Left Arm] 125/72 O2 Sat by Pulse Oximetry 96 Latest Lab Results: Laboratory Last Values WBC 2.1 X10^3/uL (3.6-10.0) L 12/27/16 03:35 RBC 4.84 X10^6/uL (4.7-6.0) 12/27/16 03:35 Hgb 15.0 g/dL (13.5-18.0) 12/27/16 03:35 Hct 43.4 % (42.0-54.0) 12/27/16 03:35 MCV 89.8 fL (80.0-100.0) 12/27/16 03:35 MCH 31.0 pg (27.0-34.0) 12/27/16 03:35 MCHC 34.6 g/dL (33.0-35.0) 12/27/16 03:35 RDW 13.5 % (11.6-16.5) 12/27/16 03:35 Plt Count 73 X10^3/uL (150.0-450.0) L 12/27/16 03:35 Plt Count Comment Decreased (ADEQUATE) 12/27/16 03:35 MPV 8.6 fL (7.4-11.0) 12/27/16 03:35 Neut % 76.1 % (42.0-75.0) H 12/27/16 03:35 Lymph % 19.7 % (21.0-51.0) L 12/27/16 03:35 [place] % 3.8 % (0.0-13.0) 12/27/16 03:35 Eos % 0.2 % (0.9-2.9) L 12/27/16 03:35 Baso % 0.2 % (0.2-1.0) 12/27/16 03:35 Neut # 1.6 x10^3/uL (2.2-4.8) L 12/27/16 03:35 Lymph # 0.4 X10^3/uL (1.3-2.9) L 12/27/16 03:35 [place] # 0.1 x10^3/uL (0.3-0.8) L 12/27/16 03:35 Eos # 0.0 x10^3/uL (0.0-0.2) 12/27/16 03:35 Baso # 0.0 X10^3/uL (0.0-0.1) 12/27/16 03:35 Absolute Nucleated RBC 0.8 /100WBC 12/27/16 03:35 Total Counted 100 12/27/16 03:35 Neutrophils % (Manual) 73 % (39-76) 12/27/16 03:35 Band Neutrophils % 6 % (0-10) 12/27/16 03:35 Lymphocytes % (Manual) 20 % (13-43) 12/27/16 03:35 Monocytes % (Manual) 1 % (4-9) L 12/27/16 03:35 Plt Morphology Comment Normal (NORMAL) 12/27/16 03:35 RBC Morphology Normal (NORMAL) 12/27/16 03:35 Sodium 141 mmol/L (136-145) 12/27/16 03:35 Corrected Sodium 143 mmol/L (136-145) 12/27/16 03:35 Potassium 4.1 mmol/L (3.5-5.1) 12/27/16 03:35 Chloride 107 mmol/L (98-107) 12/27/16 03:35 Carbon Dioxide 22.9 mmol/L (21-32) 12/27/16 03:35 BUN 26 mg/dL (7-18) H 12/27/16 03:35 Creatinine 1.51 mg/dL (0.70-1.30) H 12/27/16 03:35 Est GFR (MDRD) Af Amer 57 (>60) L 12/27/16 03:35 Est GFR (MDRD) Non-Af 47 (>60) L 12/27/16 03:35 Glucose 196 mg/dL (65-99) H 12/27/16 03:35 Hemoglobin A1c 5.9 % (4.5-6.2) 12/25/16 12:20 Calcium 8.5 mg/dL (8.5-10.1) 12/27/16 03:35 Corrected Calcium 9.3 mg/dL (8.5-10.1) 12/27/16 03:35 Phosphorus 2.9 mg/dL (2.6-4.7) 12/24/16 11:50 Magnesium 1.9 mg/dL (1.7-2.9) 12/26/16 03:30 Total Bilirubin 0.40 mg/dL (0.2-1.0) 12/27/16 03:35 AST 21 Units/L (15-37) 12/27/16 03:35 ALT 35 Units/L (12-78) 12/27/16 03:35 Alkaline Phosphatase 72 Units/L (46-116) 12/27/16 03:35 Creatine Kinase 56 Units/L (39-308) 12/24/16 11:50 CK-MB (CK-2) < 1.0 ng/mL (0-4.0) 12/24/16 11:50 CK/CKMB % Calc 1.8 % (<4) 12/24/16 11:50 Troponin I < 0.02 ng/mL (0-1.5) 12/24/16 11:50 C-Reactive Protein 31.70 mg/L (0-3.0) H 12/24/16 11:50 Total Protein 7.0 g/dL (6.4-8.2) 12/27/16 03:35 Albumin 3.0 g/dL (3.4-5.0) L 12/27/16 03:35 Globulin 4.0 g/dL (2.5-4.5) 12/27/16 03:35 Albumin/Globulin Ratio 0.8 Ratio (1.1-2.1) L 12/27/16 03:35 Total PSA 1.46 ng/mL (0.13-4.0) 12/25/16 12:20 Specimen Type Clean catch urine 12/24/16 13:38 Urine Color Yellow (YELLOW) 12/24/16 13:38 Urine Appearance Clear (CLEAR) 12/24/16 13:38 Urine pH 5.0 (5.0 - 8.0) 12/24/16 13:38 Ur Specific [place] 1.015 (1.000-1.030) 12/24/16 13:38 Urine Protein 1+ (NEGATIVE) 12/24/16 13:38 Urine Glucose (UA) Negative (NEGATIVE) 12/24/16 13:38 Urine Ketones Negative (NEGATIVE) 12/24/16 13:38 Urine Occult Blood 1+ (NEGATIVE) 12/24/16 13:38 Urine Nitrite Negative (NEGATIVE) 12/24/16 13:38 Urine Bilirubin Negative (NEGATIVE) 12/24/16 13:38 Urine Urobilinogen Normal (NORMAL) 12/24/16 13:38 Ur Leukocyte Esterase Negative (NEGATIVE) 12/24/16 13:38 Urine RBC Rare /HPF (NEGATIVE) 12/24/16 13:38 Urine WBC None seen /HPF (NEGATIVE) 12/24/16 13:38 Ur Squamous Epith Cells Rare /HPF (NEGATIVE) 12/24/16 13:38 Amorphous Sediment Trace /HPF (NEGATIVE) 12/24/16 13:38 Urine Bacteria Negative /HPF (NEGATIVE) 12/24/16 13:38 Urine Mucus Moderate /HPF (NEGATIVE) 12/24/16 13:38 Ur Culture Indicated? No/not indicated 12/24/16 13:38 Influenza A (H1N1) PCR Not detected (NOT DETECT) 12/24/16 13:38 Influenza Type A (PCR) Negative (NEGATIVE) 12/24/16 13:38 Influenza Type B (PCR) Positive (NEGATIVE) A 12/24/16 13:38 Hospital Course: 12/24/2016 patient is a 81-year-old white male who presented to the emergency room with complaints of generalized weakness and fever and body aches. Patient had been exposed to a family member who is positive for the flu. Patient has a past medical history of hypertension, mild renal insufficiency, osteoarthritis, and tobacco abuse. Patient tested positive for influenza B. On admission patient is chemistry revealed dehydration. Patient was admitted for IV hydration and treatment for influenza and further evaluation of weakness. Patient also had an EKG on admission which revealed atrial fibrillation, controlled rate. Patient does take a beta lexie but was unaware of any history of a fib 12/25/2016 #1 dehydration: Administer IV fluids, improving renal function, repeat a.m. labs #2 influenza B: Symptomatic treatment, IV hydration, IV antibiotics for secondary sinusitis and bronchitis, fever management #3 acute bronchitis: Respiratory consult, continue IV antibiotics, encourage respiratory toileting #4 hypertension: Resume home meds, monitor #5 atrial fib: EKG on admission, continue beta lexie, blood pressure control 12/26/2016 (1) Influenza B Status: Acute Plan: iv hydration, symptomatic treatment (2) Hypertension Status: Acute Qualifiers: Hypertension type: H Plan: DC lisinopril. Increase losartan to 100 mg daily continue beta lexie and amlodipine (3) Acute bronchitis Status: Acute Qualifiers: Bronchitis organism: B Plan: resp therapy, repeat am cxr. add symbicort inhaler and solu medrol 40 iv x 3 doses for wheezing (4) A-fib Status: Acute Qualifiers: Atrial fibrillation type: unspecified Qualified Code(s): I48.91 - Unspecified atrial fibrillation Plan: controlled rate, bp control. continue bb, repeat ekg (5) Dehydration Status: Acute Plan: improving renal function, repeat am cmp 12/27/2016 pt improved, pt going home, see d/c summary, see d/c instructions. - Discharge Plan Disposition: HOME, SELF-CARE Condition: Stable Prescriptions: Losartan Potassium 100 mg PO DAILY #30 tab - Follow ups/Referrals Follow ups/Referrals: PETER WRIGHT [Nurse Practitioner] - 01/04/17 3:15 pm CODIE NEAL [STAFF PHYSICIAN] - (Referral sent to the office and office staff will call you with an appointment.) - Instructions Instructions: Smoking Cessation, Tips for Success, [id number], Fall Prevention in the Home, [id number]-[id number], Shortness of Breath, [id number]-[id number], Influenza, Adult, [id number], Losartan tablets, Acute Bronchitis, Zsuy-he-Nycu , Rehydration, Elderly, Dehydration, Elderly, Knja-bg-Zeeu, Atrial Fibrillation , Qezb-rz-Yaev, Hypertension Additional Instructions: rest increase po water intake, stop smoking continue home meds except stop lisinopril and increased losartan to 100mg po daily pt needs to see supervisor [employer] for follow up on chronic atrial fib pt to needs to follow up with PCP or dr titus in one week for hospital follow up pt's losartan 100mg sent to [facility] rx Forms: Patient Portal
== END 2016-12-27 13:50 | disposition home or self-care (01) | DRG 641 ==
LOC: ER 11:49 → MED/SURG 13:38
PROVIDERS: ADMIT Internal Medicine; ATTEND Internal Medicine
DX: E86.0 Dehydration (principal); I48.91 Unspecified atrial fibrillation; R39.2 Extrarenal uremia; J10.1 Influenza due to other identified influenza virus with other respiratory manifestations; J01.80 Other acute sinusitis; J20.8 Acute bronchitis due to other specified organisms; K21.9 Gastro-esophageal reflux disease without esophagitis; I10 Essential (primary) hypertension; R94.31 Abnormal electrocardiogram [ECG] [EKG]
CPT/HCPCS: 36415; 71010; 80053; 81001; 82550; 82553; 83036; 83735; 84100; 84132; 84153; 84484; 85025; 86140; 87502; 87503; 93005; 93010; 94640; 96365; 96367; 99284; A4216; A4222; S0138; J0696; J2270; J2920; J7620

== ENCOUNTER 2017-11-01 10:59 | Inpatient (IN) | payer OTHER ==
[2017-11-01 11:10] VITALS: BMI 26.4
[2017-11-01] MEDS ORDERED: MORPHINE SULFATE INJ 2 MG INJ ONE (12:13)
[2017-11-01] MEDS ORDERED: MORPHINE SULFATE INJ 2 MG INJ IVP ONE (12:14)
[2017-11-01] MEDS ORDERED: DILAUDID INJ ONE (12:34)
[2017-11-01] MEDS ORDERED: DILAUDID INJ IVP ONE (12:35)
--- NOTE | 2017-11-01 12:36 | DR.EXTPAIN ---
HPI - Time seen Time seen: 12:34 - PCP Primary Care Physician: barbara - Complaint/Symptoms Chief Complaint Doctor Comments: Patient fell while at home this morning and injured his left shoulder. Admits to 10/10 pain in left shoulder. Chief Complaint:: fall outdoors, pain and swelling to left shoulder. - Source History Provided: Patient - Mode of arrival Mode of Arrival: Ambulatory - Timing Onset of Chief Complaint: 11/01/17 PMH - PMH Past Medical History: Yes Past Medical History: Dyslipidemia, Hypertension Past Medical History Comment: afib--pacemaker Past Surgical History: Yes Surgical History: Appendectomy, Cholecystectomy Past Surgical History Comment: pacemaker - Family History History of Family Medical Conditions: Yes Family Medical History: Diabetes Mellitus, Cancer, [place] - Social History Does patient currently use any type of tobacco product: No Have you used tobacco products in the last 12 months: No Type of Tobacco Use: None How many years tobacco product used: 65 Does any household member use tobacco: No Do you use any recreational Drugs:: No Lives With: Family Lives Where: Home - infectious screening In the last 2 months have you had wt loss of >10#?: NO Have you had fever, night sweats or hemotysis?: No Have you traveled outside the country in the last 6 months?: No Isolation: Standard ROS - Review of Systems Eyes: No Symptoms Reported ENTM: No Symptoms Reported Respiratoy: No Symptoms Reported Cardiovascular: No Symptoms Reported Gastrointestinal/Abdominal: No Symptoms Reported Genitourinary: No Symptoms Reported Neurological: No Symptoms Reported Musculoskeletal: Shoulder (left) Integumentary: No Symptoms Reported Hematologic/Lymphatic: No Symptoms Reported Endocrine: No Symptoms Reported Psychiatric: No Symptoms Reported All Other Systems: Reviewed and Negative PE - Vital Signs Vitals: Temperature 96.9 F Pulse Rate 61 Respiratory Rate 20 Blood Pressure [Right Arm] 140/72 Blood Pressure [Left Arm] 125/72 Blood Pressure 118/61 O2 Sat by Pulse Oximetry 99 - General General Appearance: Alert, Anxious - Head Head Exam: Normal Inspection, Atraumatic - Eyes Eye exam: Normal Appearance, PERRL, EOMI - ENT ENT Exam: Normal Exam - Neck Neck Exam: Normal Inspection, Full ROM - Chest Chest Inspection: Normal Inspection - Respiratory Respiratory Exam: Normal Lung Sounds Bilat Respiratory Exam: Bilateral Clear to Auscultation - Cardiovascular Cardiovascular Exam: Regular Rate - Abdominal Exam Abdominal Exam: Normal Inspection, Normal Bowel Sounds Abdominal Tenderness: negative: RUQ, RLQ, LUQ, LLQ, Epigastrium, Suprapubic, Diffuse, Mild, Moderate, Severe, Other - Extremities Extremities Exam: Normal Inspection - Upper Extremities Shoulder Exam: Tenderness, Deformity (left shoulder), Tenderness over AC Joint Arm Exam: Normal Inspection Elbow Exam: Normal Inspection Forearm Exam: Normal Inspection Hand Exam: Normal Inspection Neuromotor Exam: Normal Exam Neurosensory Exam: Normal Exam Hand Tendon Exam: Flexor Digitorium Profundus (Location) Upper Ext. Vascular Exam: Capillary Refill - Lower Extremities Hip/Pelvis Exam: Normal Inspection Upper Leg Exam: Normal Inspection Knee Exam: Normal Inspection Lower Leg Exam: Normal Inspection Ankle Exam: Normal Inspection Foot/Toe Exam: Normal Inspection Neurovascular/Tendon Exam: Normal Capillary Refill Gait Exam: Observed and Normal - Back Back Exam: Full ROM - Neurological Neurological Exam: Alert, Oriented X3, CN II-XII Intact - Psychiatric Psychiatric Exam: Normal Affect - Skin Skin Exam: Warm, Dry, Intact Course - Reevaluation 1st: Improved - Consultation Called: 13:00 (will evaluate) ROR - Labs Reviewed Result Diagrams: 11/01/17 13:48 11/01/17 13:48 - XRAY XRAY Interpreted by: Radiologist (Left shoulder: There is a minimally comminuted mildly impacted fracture of the proximal left humerus at the surgical neck. There appears to be rotation of the humeraal head. There appears to be anterior displacement of the humeral shaft with respect to the humeral head. Minimal degenerative changes noted in the glenohumeral jooiint and in the acromioclavicular joint. Moderate osteopenia is noted. The underlying ribs appear normal.) - Diagnosis Discharge Problem: Shoulder fracture, left Qualifiers: Encounter type: initial encounter Fracture type: closed Qualified Code(s): S42.92XA - Fracture of left shoulder girdle, part unspecified, initial encounter for closed fracture - Discharge Plan Condition: Stable - Follow ups/Referrals Follow ups/Referrals: VU RUBIO [Primary Care Provider] - 3 days - Instructions
--- NOTE | 2017-11-01 12:53 | RAD ---
HISTORY: Status post fall. Left shoulder pain. Study: Left shoulder: Three views Comparison: None Findings: There is a minimally comminuted mildly impacted fracture of the proximal left humerus at the surgical neck. There appears to be rotation of the humeral head. There appears to be anterior displacement of the humeral shaft with respect to the humeral head Minimal degenerative changes noted in the glenohumeral joint and in the acromioclavicular joint. Mod erate osteopenia is noted. The underlying ribs appear normal. Electronic cardiac device present on the left . IMPRESSION: 1. Left shoulder fracture as described above. Reported By:
[2017-11-01 14:11] LABS: ALANINE AMINOTRANSFERASE 22 Units/L (12-78); ALBUMIN 3.7 g/dL (3.4-5.0); ALKALINE PHOSPHATASE 116 Units/L (46-116); ASPARTATE AMINO TRANSFERASE 25 Units/L (15-37); BLOOD UREA NITROGEN 36 mg/dL (7-18); CALCIUM 8.7 mg/dL (8.5-10.1); CARBON DIOXIDE 28.3 mmol/L (21-32); CHLORIDE 104 mmol/L (98-107); COR NA(FOR HYPERGLY) 141 mmol/L (136-145); SODIUM 140 mmol/L (136-145); TOTAL PROTEIN 7.2 g/dL (6.4-8.2); eGFR BLACK RACES 35 (>60); eGFR NON BLACK RACES 29 (>60)
--- NOTE | 2017-11-01 14:11 | RAD ---
Single view of the chest Indication: Preoperative evaluation for shoulder fracture. Comparison: Shoulder radiograph done December 27, 2016. Conclusion: Cardiac pacer projects in expected radiographic position. Heart size and pulmonary vascul ature are normal. Lungs are clear except for scattered calcified granulomas. Reported By:
[2017-11-01 14:20] LABS: BASOPHILS # (AUTO) 0.1 X10^3/uL (0.0-0.1); BASOPHILS % (AUTO) 0.8 % (0.2-1.0); EOSINOPHILS # (AUTO) 0.1 x10^3/uL (0.0-0.2); EOSINOPHILS % (AUTO) 0.8 % (0.9-2.9); HEMATOCRIT 42.7 % (42.0-54.0); HEMOGLOBIN 15.2 g/dL (13.5-18.0); LYMPHOCYTES # (AUTO) 0.8 X10^3/uL (1.3-2.9); LYMPHOCYTES % (AUTO) 10.2 % (21.0-51.0); MEAN CORPUSCULAR HEMOGLOBIN 31.9 pg (27.0-34.0); MEAN CORPUSCULAR HGB CONC 35.6 g/dL (33.0-35.0); MEAN CORPUSCULAR VOLUME 89.6 fL (80.0-100.0); MEAN PLATELET VOLUME 8.3 fL (7.4-11.0); MONOCYTES # (AUTO) 0.4 x10^3/uL (0.3-0.8); MONOCYTES % (AUTO) 4.7 % (0.0-13.0); NEUTROPHILS # (AUTO) 6.7 x10^3/uL (2.2-4.8); NEUTROPHILS % (AUTO) 83.5 % (42.0-75.0); PLATELET COUNT 113 X10^3/uL (150.0-450.0); RED BLOOD COUNT 4.76 X10^6/uL (4.7-6.0)
[2017-11-01] MEDS ORDERED: BENTYL CAP 10 MG PO PRN (14:21)
[2017-11-01] MEDS ORDERED: XANAX PO PRN (14:37)
[2017-11-01] MEDS ORDERED: D5 LR IV SCH (15:00)
[2017-11-01] MEDS ORDERED: HYDROCHLOROTHIAZIDE 25 MG TAB PO SCH (15:00)
[2017-11-01] MEDS ORDERED: MORPHINE SULFATE INJ 4 MG IVP PRN (16:12)
[2017-11-01] MEDS: NICOTINE PATCH TD SCH (16:21)
[2017-11-01] MEDS ORDERED: MEPHYTON PO ONE (16:22)
[2017-11-01] MEDS ORDERED: NS 500 ML IV 500 ML IV ONE (20:48)
[2017-11-01] MEDS ORDERED: FLOMAX PO SCH (21:00)
[2017-11-01] MEDS ORDERED: CELEXA PO SCH (21:00)
[2017-11-01] MEDS: ANCEF 1 GM IV PREMIX* 1 GM/50 ML BAG IV SCH (21:24)
[2017-11-01] MEDS: LOPRESSOR TAB 25 MG PO SCH (21:24)
[2017-11-01] MEDS: MORPHINE SULFATE INJ 4 MG IVP PRN (21:26)
[2017-11-02] MEDS: MORPHINE SULFATE INJ 4 MG IVP PRN ×4 (02:37→17:15)
[2017-11-02] MEDS: ANCEF 1 GM IV PREMIX* 1 GM/50 ML BAG IV SCH ×2 (05:59→14:51)
[2017-11-02 06:12] LABS: BASOPHILS # (AUTO) 0.1 X10^3/uL (0.0-0.1); EOSINOPHILS # (AUTO) 0.2 x10^3/uL (0.0-0.2); EOSINOPHILS % (AUTO) 3.1 % (0.9-2.9); HEMATOCRIT 39.9 % (42.0-54.0); LYMPHOCYTES # (AUTO) 0.9 X10^3/uL (1.3-2.9); LYMPHOCYTES % (AUTO) 16.7 % (21.0-51.0); MEAN CORPUSCULAR HEMOGLOBIN 31.1 pg (27.0-34.0); MEAN CORPUSCULAR HGB CONC 35.2 g/dL (33.0-35.0); MEAN CORPUSCULAR VOLUME 88.4 fL (80.0-100.0); MEAN PLATELET VOLUME 8.2 fL (7.4-11.0); MONOCYTES # (AUTO) 0.5 x10^3/uL (0.3-0.8); MONOCYTES % (AUTO) 8.6 % (0.0-13.0); NEUTROPHILS % (AUTO) 70.6 % (42.0-75.0); PLATELET COUNT 92 X10^3/uL (150.0-450.0); RED BLOOD COUNT 4.52 X10^6/uL (4.7-6.0); RED CELL DISTRIBUTION WIDTH 13.7 % (11.6-16.5); WHITE BLOOD COUNT 5.6 X10^3/uL (3.6-10.0)
[2017-11-02 06:22] LABS: CALCIUM 8.3 mg/dL (8.5-10.1); CARBON DIOXIDE 27.1 mmol/L (21-32); COR CA(FOR HYPOALB) 9.1 mg/dL (8.5-10.1); CREATININE 2.1 mg/dL (0.70-1.30); TOTAL PROTEIN 6.4 g/dL (6.4-8.2)
[2017-11-02] MEDS ORDERED: ZESTRIL TAB 20 MG ONE (08:51)
[2017-11-02] MEDS ORDERED: ZESTRIL TAB 20 MG PO SCH (09:00)
[2017-11-02] MEDS ORDERED: COZAAR PO SCH (09:00)
[2017-11-02] MEDS ORDERED: PROSCAR PO SCH (09:00)
[2017-11-02] MEDS ORDERED: PROTONIX TAB 40 MG PO SCH (09:00)
[2017-11-02] MEDS ORDERED: NORVASC TAB 10 MG PO SCH (09:00)
[2017-11-02] MEDS: NICOTINE PATCH TD SCH (09:04)
[2017-11-02] MEDS: LOPRESSOR TAB 25 MG PO SCH (09:08)
--- NOTE | 2017-11-02 10:51 | DR.CARTERS ---
Short Stay Summary - Short Stay Summary for: Short Stay Summary for Date of:: 11/02/17 - Admission Date Date of Admission: 11/01/17 - Discharge Date Discharge Date: 11/02/17 - Admission Diagnoses (1) Shoulder fracture, left Status: Acute (2) A-fib Status: Acute - Hospital Course Hospital Course: is a 81 year old patient of Dr.Warren Fischer who presented to the emergency room with reports of a fall after stumbling over a block this morning. Patient reports following fall he had severe left shoulder pain and swelling. Patient rates pain as a 10/10. On examination, heart is regular in rate and rhythm. Bilateral lungs are noted to be clear to auscultation. Abdomen is round, soft, and non-tender with normal bowel sounds noted in all quadrants. Patient is unable to move the left arm without severe pain. There is normal range of motion noted to all other extremities. On arrival, vitals were 96.9, 61 , 20, 99% RA, 118/61. A left shoulder xray was obtained. It reported Left shoulder fracture, minimally comminuted midly impacted fracture of the proximal left humerus at the surgical neck. Rotation noted at humeral head. was consulted and requested to admit patient for pain control and will plan for surgical repair, pending surgical clearance. Labs and a chest xray were obtained. Abnormal lab values include the following: MCHC 35.6, Plt Count 113, INR 2.47, PTT 41.5, BUN 36, Creatinine 2.30, GFR af 35, GFR non 29, Glucose 151. Chest xray reported: Cardiac pacer projects in expected radiographic position. Heart size and pulmonary vasculature are normal. Lungs are clear except for scattered calcified granulomas. Patient has a medical history of dyslipidemia, hypertension, atrial fibrillation, a pacemaker, BPH, arthritis, skin cancer, anxiety, an appendectomy, and a cholecystectomy. Patient takes Coumadin daily for atrial fibrillation. We will hold this until further notice. Patient was admitted for further treatment and evaluation. He was started on morphine 4mg iv q2-4h prn pain and ancef 1gm iv q8h. On the morning following admission, patient is alert and oriented, lying in bed on morning rounds. Patients spouse is at bedside. He continues with pain to the left shoulder. He is noted to be wearing a shoulder sling and immobilizer. On examination, heart is regular in rate and rhythm. Bilateral lungs are noted to be clear to auscultation. Abdomen is round, soft, and non-tender with normal bowel sounds noted in all quadrants. Patient is unable to move the left arm without severe pain. There is normal range of motion noted to all other extremities. His vitals this morning are 98.1-60-21-92%-114/60. Labs were obtained this morning. Abnormal lab values include the following: RBC 4.52, HCT 39.9, plt count 92, INR 2.84, PTT 45.9, POTASSIUM 3.4, BUN 31, CREATININE 2.10, GLUCOSE 146, CALCIUM 8.3, AST 80, ALK PHOS 133, ALBUMIN 3.0. Due to patients cardiac history, we feel that cardiac clearance by patients shank paperer is best prior to surgery. We contacted patients shank paperer at [facility] in [place], [place]. Hospitalist accepted patient for transfer. Patient will be transferred to [facility] via EMS for cardiac clearance and surgical repair of shoulder. Patient in stable condition for transfer. - Discharge Medications Discharge Medications: Finasteride [PROSCAR 5 MG *] 5 mg PO DAILY 11/01/17 [History] Lisinopril [Lisinopril] 20 mg PO DAILY 11/01/17 [History] Pantoprazole Sodium 40 mg [Protonix Tab 40 mg] 40 mg PO DAILY 11/01/17 [History] Warfarin Sodium [Warfarin Sodium] 5 mg PO DAILY 11/01/17 [History] - Discharge Plan Disposition: 03 [facility]FER [facility] Condition: Stable - Follow up/Referrals - Instructions
[2017-11-02 16:54] VITALS: BP 117/60
[2017-11-03] MEDS ORDERED: COZAAR PO SCH (09:00)
== END 2017-11-02 17:27 | disposition short-term general hospital (02) | DRG 563 ==
LOC: ER 11:37 → ICU 14:27
PROVIDERS: ADMIT Internal Medicine; ATTEND Internal Medicine
DX: S42.92XA Fracture of left shoulder girdle, part unspecified, initial encounter for closed fracture (principal); M25.512 Pain in left shoulder; W18.39XA Other fall on same level, initial encounter; Y92.89 Other specified places as the place of occurrence of the external cause; Z95.0 Presence of cardiac pacemaker; E78.2 Mixed hyperlipidemia; I10 Essential (primary) hypertension; Z79.01 Long term (current) use of anticoagulants; R94.31 Abnormal electrocardiogram [ECG] [EKG]
CPT/HCPCS: 36415; 71045; 73030; 80053; 85025; 85610; 85730; 86850; 86900; 86901; 93005; 96365; 96374; 96375; 99284; A4222; S0138; J0690; J2270

== ENCOUNTER 2024-10-11 20:33 | Inpatient (IN) ==
[2024-10-11] MEDS: DILAUDID INJ IVP ONE (21:27)
[2024-10-11 21:40] LABS: RED CELL DISTRIBUTION WIDTH 17.6 % (11.6-16.5)
[2024-10-11 21:46] LABS: ALBUMIN 2.2 g/dL (3.4-5.0); CALCIUM 9.1 mg/dL (8.5-10.1); CARBON DIOXIDE 29.3 mmol/L (21-32); COR CA(FOR HYPOALB) 10.5 mg/dL (8.5-10.1); CREATININE 3.28 mg/dL (0.70-1.30); POTASSIUM 3.3 mmol/L (3.5-5.1); TOTAL PROTEIN 6.8 g/dL (6.4-8.2)
[2024-10-11] MEDS: DILAUDID INJ IM ONE (21:48)
--- NOTE | 2024-10-11 21:49 | DR.ABDMALE ---
HPI Time seen Time Seen by Provider: 10/11/24 21:19 PCP Primary Care Physician: VU RUBIO HPI comment HPI Comment: According to family patient began experiencing pain in the belly this morning ,moderate intensity intermittent .called the ambulance brought patient to ER .has had no fever or chills no nausea or vomiting but does have loose stools Complaint Chief Complaint Doctors Comments: abdominal pain Chief Complaint:: PT IN BROUGHT BY EMS DUE TO C/O OF LOWER RIGHT ABD PAIN. DENIES N/V. REPORTS THAT LAST BOWEL MOVEMENT WAS TODAY. PT'S ABDOMEN NOTED TO BE FIRM, TENDER TO TOUCH, ROUND AND DISTENDED. COVID-19 Coronavirus risk:travel/contact w/high risk person: No Has patient experienced Coronavirus symptoms: No Reviewed Nurses Notes Review: Yes Mode of arrival Mode of Arrival: EMS Timing Onset of Chief Complaint: 10/11/24 Came on: Gradually Duration Duration: Intermittent Duration: Hours Location Location: RLQ and Diffuse Severity Severity: Moderate and Severe Quality Quality: Aching, Colicky and Cramping Context Onset: Unknown History of: None Modifying factors Worsening Factors: Nothing PMH PMH Past Medical History: Yes Past Medical History: Diabetes Past Medical History Comment: A-FIB, PACEMAKER Past Surgical History: Yes Surgical History: Appendectomy and Ortho Surgery Past Surgical History Comment: HERNIA REPAIR Family History History of Family Medical Conditions: Yes Family Medical History: Diabetes Mellitus Social History Does patient currently use any type of tobacco product: No Have you used tobacco products in the last 12 months: No Type of Tobacco Use: None Does any household member use tobacco: No Alcohol Use: None Do you use any recreational Drugs:: No Lives With: Spouse Lives Where: Home Travel Risk Coronavirus risk:travel/contact w/high risk person: No Has patient experienced Coronavirus symptoms: No Infectious screening Have you traveled outside the country in the last 6 months?: No Isolation: Standard ROS Review of Systems Constitutional: Loss of Appetite Eyes: No Symptoms Reported ENTM: No Symptoms Reported Respiratoy: No Symptoms Reported Cardiovascular: No Symptoms Reported Gastrointestinal/Abdominal: See HPI Genitourinary: No Symptoms Reported Neurological: No Symptoms Reported Musculoskeletal: Other (hx of hip fracture ) PE Vital Signs Vital Signs: Temp Pulse Resp BP Pulse Ox O2 Del Method 10/11/24 23:00 106 H 25 H 100 10/11/24 23:00 105/49 10/11/24 22:45 106 H 27 H 100 10/11/24 22:30 102 H 25 H 100 10/11/24 22:30 103/53 10/11/24 22:15 104 H 23 100 10/11/24 22:00 97/48 10/11/24 22:00 97/48 10/11/24 22:00 97/48 10/11/24 22:00 97/48 10/11/24 22:00 108 H 26 H 100 10/11/24 22:00 108 H 26 H 100 10/11/24 21:56 125/60 10/11/24 21:56 125/60 10/11/24 21:56 109 H 28 H 100 10/11/24 21:55 123 H 26 H 10/11/24 21:30 140/60 10/11/24 21:30 108 H 29 H 95 10/11/24 21:15 111 H 34 H 98 10/11/24 21:00 140/64 10/11/24 21:00 107 H 30 H 89 L 10/11/24 20:46 104 H 31 H 79 L 10/11/24 21:27 18 10/11/24 20:58 98.3 F 93 H 18 132/61 92 L Room Air General Limitations: No Limitations General Appearance: Alert, Lethargic and In Distress Head Head Exam: Normal Inspection and Atraumatic Eyes Eye exam: Normal Appearance, PERRL and EOMI ENT ENT Exam: Mucous Membranes Moist Neck Neck Exam: Normal Inspection and Full ROM Chest Chest Inspection: Normal Inspection and Symmetric Chest Wall Rise Respiratory Respiratory Exam: Normal Lung Sounds Bilat Cardiovascular Cardiovascular Exam: +S1 and +S2 Abdominal Exam Abdominal Exam: Normal Bowel Sounds, Distention, Tenderness and Other Abdominal Tenderness: LLQ and Diffuse Neurologic Neurological Exam: Alert Skin Skin Exam: Pallor MDM Differential Diagnosis Differential Diagnosis: Bowel Obstruction, Diverticular disease, Gastroenteritis, Ischemic Bowel and Pancreatitis COURSE Treatment Treatment: labs ,ct abdomen ,iv dilaudid Reevaluation 1st: Improved ROR Labs Reviewed Laboratory Results Reviewed?: Yes 10/11/24 21:25 10/11/24 21:25 Laboratory: WBC 10.3 X10^3/uL (3.6-10.0) H 10/11/24 21: RBC 3.17 X10^6/uL (4.7-6.0) L 10/11/24: Hgb 6.7 g/dL (13.5-18.0) L* 10/11/24: Hct 21.1 % (42.0-54.0) L 10/11/24: MCV 66.6 fL (80.0-100.0) L 10/11/24: MCH 21.0 pg (27.0-34.0) L 10/11/24: MCHC 31.6 g/dL (33.0-35.0) L 10/11/24: RDW 17.6 % (11.6-16.5) H 10/11/24: Plt Count 229 X10^3/uL (150.0-450.0) 10/11/24: Plt Count Comment Adequate (ADEQUATE) 10/11/24 MPV 7.6 fL (7.4-11.0) 10/11/24: Neut % (Auto) 90.0 % (42.0-75.0) H 10/11/24: Lymph % (Auto) 4.4 % (21.0-51.0) L 10/11/24: [place] % (Auto) 3.9 % (0.0-13.0) 10/11/24: Eos % (Auto) 1.4 % (0.9-2.9) 10/11/24: Baso % (Auto) 0.3 % (0.2-1.0) 10/11/24: Neut # (Auto) 9.3 x10^3/uL (2.2-4.8) H 10/11/24: Lymph # (Auto) 0.5 X10^3/uL (1.3-2.9) L 10/11/24: [place] # (Auto) 0.4 x10^3/uL (0.3-0.8) 10/11/24: Eos # (Auto) 0.1 x10^3/uL (0.0-0.2) 10/11/24: Baso # (Auto) 0.0 X10^3/uL (0.0-0.1) 10/11/24 21: Absolute Nucleated RBC 0.0 /100WBC 10/11/24 21: Total Counted 100 10/11/24 21: Neutrophils % (Manual) 92 % (39-76) H 10/11/24 21: Band Neutrophils % 2 % (0-10) 10/11/24 21: Lymphocytes % (Manual) 4 % (13-43) L 10/11/24 21: Monocytes % (Manual) 2 % (4-9) L 10/11/24 21:25 Plt Morphology Comment Normal (NORMAL) 10/11/24: RBC Morphology Abnormal (NORMAL) 10/11/24: Hypochromasia 1+ A 10/11/24: Anisocytosis Slight A 10/11/24: Microcytosis 1+ A 10/11/24: Sodium 133 mmol/L (136-145) L 10/11/24: Corrected Sodium 134 mmol/L (136-145) L 10/11/24: Potassium 3.3 mmol/L (3.5-5.1) L 10/11/24: Chloride 94 mmol/L (98-107) L 10/11/24: Carbon Dioxide 29.3 mmol/L (21-32) 10/11/24: BUN 89 mg/dL (7-18) H 10/11/24: Creatinine 3.28 mg/dL (0.70-1.30) H 10/11/24 21:25 Est GFR (MDRD) Af Amer 23 (>60) L 10/11/24: Est GFR (MDRD) Non-Af 19 (>60) L 10/11/24: Glucose 162 mg/dL (65-99) H 10/11/24: Calcium 9.1 mg/dL (8.5-10.1) 10/11/24: Corrected Calcium 10.5 mg/dL (8.5-10.1) H 10/11/24 21: Total Bilirubin 0.50 mg/dL (0.2-1.0) 10/11/24: AST 12 Units/L (15-37) L 10/11/24: ALT 11 Units/L (12-78) L 10/11/24 21:25 Alkaline Phosphatase 96 Units/L (46-116) 10/11/24 21:25 Total Protein 6.8 g/dL (6.4-8.2) 10/11/24 21:25 Albumin 2.2 g/dL (3.4-5.0) L 10/11/24 21:25 Globulin 4.6 g/dL (2.5-4.5) H 10/11/24 21:25 Albumin/Globulin Ratio 0.5 Ratio (1.1-2.1) L 10/11/24 21:25 Lipase 33 Units/L (16-77) 10/11/24 21:25 Crossmatch See Detail 10/11/24 23:25 CT abdomen /pelvis no acute changes Opioid Opioid Risk Tool Age ([place] box if 16-45): No History of Preadolescent Sexual Abuse: No Total: 0 Total Score Risk Category: Low Risk Copyright: Chamberlain predicting aberrant behaviors Discharge Plan Diagnosis Discharge Problem: Anemia, Stage 5 chronic kidney disease, Abdominal pain, Bedbound, Long-term (current) use of anticoagulants, INR goal 2.0-3.0 Discharge Plan Patient Disposition: 09 ADMITTED INPATIENT Condition: Stable Prescriptions: No Action alprazolam [Xanax] 1 MG tablet 1 tab PO BID PRN (Reason: Anxiety) tamsulosin 0.4 MG capsule,extended release 24hr 0.4 mg PO DAILY pantoprazole 40 MG tablet,delayed release (DR/EC) 40 mg PO DAILY warfarin 5 MG tablet 5 mg PO DAILY Patient Comments: PT TAKES 5 MG ON SUN, , / 2.5MG ON Sun,SUNDAY SAT finasteride 5 MG tablet 5 mg PO DAILY Patient Comments: metformin 500 mg tablet 250 mg PO BID atenolol-chlorthalidone 50-25 mg tablet 1 tab PO QDAY furosemide 40 mg tablet 40 mg DAILY PRN alprazolam 1 mg tablet 1 mg PO BID atenolol-chlorthalidone 50-25 mg tablet 1 tab PO QDAY citalopram 20 mg tablet 20 mg PO QPM furosemide 20 mg tablet 20 mg PO QDAY Health Concerns: Post Hospitalization: new medications and changes needed to prevent readmission or further decline. Pt educated and given instructions on all concerns. Plan of Treatment: Continue with present treatment and follow up plan. Pt is to keep follow up appointment as instructed and take medications as ordered. Orders to Discharge Patient Discharge Orders: Transfer (Routine); Ordered 10/11/24 Ordered By: Tani Hopper Follow ups/Referrals Follow ups/Referrals: [facility],None [Primary Care Provider] - 3 days Instructions Stand Alone Forms: Find Help Web Site, Post Hospital Follow Up Care
[2024-10-11 21:56] LABS: BASOPHILS % (AUTO) 0.3 % (0.2-1.0); EOSINOPHILS # (AUTO) 0.1 x10^3/uL (0.0-0.2); EOSINOPHILS % (AUTO) 1.4 % (0.9-2.9); HEMATOCRIT 21.1 % (42.0-54.0); LYMPHOCYTES # (AUTO) 0.5 X10^3/uL (1.3-2.9); LYMPHOCYTES % (AUTO) 4.4 % (21.0-51.0); MEAN CORPUSCULAR HGB CONC 31.6 g/dL (33.0-35.0); MEAN CORPUSCULAR VOLUME 66.6 fL (80.0-100.0); MEAN PLATELET VOLUME 7.6 fL (7.4-11.0); MONOCYTES # (AUTO) 0.4 x10^3/uL (0.3-0.8); MONOCYTES % (AUTO) 3.9 % (0.0-13.0); NEUTROPHILS # (AUTO) 9.3 x10^3/uL (2.2-4.8); PLATELET COUNT 229 X10^3/uL (150.0-450.0); RED BLOOD COUNT 3.17 X10^6/uL (4.7-6.0); WHITE BLOOD COUNT 10.3 X10^3/uL (3.6-10.0)
[2024-10-11 22:06] LABS: HEMOGLOBIN 6.7 g/dL (13.5-18.0)
[2024-10-11 22:07] LABS: ANISOCYTOSIS SLIGHT; BAND NEUTROPHILS % 2 % (0-10); HYPOCHROMASIA 1+; MICROCYTOSIS 1+; PLATELET MORPHOLOGY COMMENT NORMAL (NORMAL)
--- NOTE | 2024-10-11 22:12 | CT ---
EXAM:ABDOMEN/PELVIS W/O CONHISTORY:PT IN BROUGHT BY EMS DUE TO C/O OF LOWER RIGHT ABD PAIN. DENIES N/V. REPORTS THAT LAST BOWEL MOVEMENT WAS TODAY;COMPARISON:CT pelvis without contrast from December 27, 2023TECHNIQUE:Non-contrasted axial CT images of the abdomen and pelvis were obtained and reformatted into coronal and sagittal planes for further evaluation.Radiation dose: 314.97 mGy-cm total DLPFINDINGS:Small bilateral layering pleural effusions with adjacent atelectasis.Pacemaker in place.Trace pericardial effusion.Coronary artery calcifications.Cardiac chambers are mildly enlarged.Mild smooth interlobular septal thickening.Stomach appears normal.Solid visceral organs of the upper abdomen are unremarkable.Status post cholecystectomy.No intra or extrahepatic biliary dilatation.Unremarkable appearance of the kidneys.No hydronephrosis, hydroureter or ureteral calculus.Unremarkable appearance of the urinary bladder.Colonic diverticulosis without diverticulitis.Short-segment colonic wall thickening involving the proximal ascending colon with pericolonic inflammatory changes.Reproductive structures are unremarkable.No evidence of acute appendicitis.No pneumoperitoneum.Small volume ascites adjacent to the liver and in the right pericolic gutter.No adenopathy.No acute osseous abnormality.IMPRESSION:1. Short-segment colonic wall thickening involving the proximal ascending colon with pericolonic inflammatory changes. Findings could represent infectious, inflammatory or ischemic colitis. Recommend follow-up imaging to exclude a neoplastic process.2. Colonic diverticulosis without diverticulitis.3. Findings are concerning for mild cardiogenic edema resulting in small bilateral pleural effusions.THIS IS AN ELECTRONICALLY VERIFIED FINAL REPORT10/11/2024 10:09 PM - Electronically signed by David Baez MD
[2024-10-12] MEDS ORDERED: NS 250 ML IV 25 ML IV PRN (05:41)
[2024-10-12] MEDS: NS 1,000 ML IV 1,000 ML ONE (07:51)
[2024-10-12 08:04] LABS: HEMATOCRIT 21.2 % (42.0-54.0); PLATELET COUNT 171 X10^3/uL (150.0-450.0); WHITE BLOOD COUNT 9.3 X10^3/uL (3.6-10.0)
[2024-10-12 08:07] LABS: BASOPHILS # (AUTO) 0.1 X10^3/uL (0.0-0.1); BASOPHILS % (AUTO) 0.7 % (0.2-1.0); EOSINOPHILS % (AUTO) 0.5 % (0.9-2.9); LYMPHOCYTES # (AUTO) 0.6 X10^3/uL (1.3-2.9); LYMPHOCYTES % (AUTO) 6.8 % (21.0-51.0); MEAN CORPUSCULAR HEMOGLOBIN 21.5 pg (27.0-34.0); MEAN CORPUSCULAR VOLUME 67.1 fL (80.0-100.0); MEAN PLATELET VOLUME 7.5 fL (7.4-11.0); MONOCYTES # (AUTO) 0.6 x10^3/uL (0.3-0.8); MONOCYTES % (AUTO) 6.9 % (0.0-13.0); NEUTROPHILS # (AUTO) 7.9 x10^3/uL (2.2-4.8); NEUTROPHILS % (AUTO) 85.1 % (42.0-75.0); RED BLOOD COUNT 3.16 X10^6/uL (4.7-6.0); RED CELL DISTRIBUTION WIDTH 17.2 % (11.6-16.5)
[2024-10-12 08:09] LABS: INR 2.36 (0.8-1.3)
[2024-10-12 08:16] LABS: ALBUMIN 1.7 g/dL (3.4-5.0); CALCIUM 8.8 mg/dL (8.5-10.1); CARBON DIOXIDE 30.7 mmol/L (21-32); COR CA(FOR HYPOALB) 10.6 mg/dL (8.5-10.1); CREATININE 3.26 mg/dL (0.70-1.30); HEMOGLOBIN 6.8 g/dL (13.5-18.0); POTASSIUM 3.3 mmol/L (3.5-5.1); TOTAL PROTEIN 5.7 g/dL (6.4-8.2)
[2024-10-12] MEDS ORDERED: CONSULT PHARMACY - POTASSIUM & MAGNESIUM XX SCH (09:00)
[2024-10-12 09:07] LABS: ANISOCYTOSIS SLIGHT; HYPOCHROMASIA 2+; MICROCYTOSIS 1+; PLATELET MORPHOLOGY COMMENT NORMAL (NORMAL)
[2024-10-12] MEDS: COUMADIN TAB 5 MG (JANTOVEN) PO SCH (09:35)
[2024-10-12] MEDS ORDERED: K-RIDER 10 MEQ/100 ML WATER 10 MEQ/100 ML BAG IV SCH (10:00)
[2024-10-12] MEDS: MAG-OX TAB PO SCH (10:09)
[2024-10-12] MEDS: K-DUR TAB 20 MEQ PO ONE (10:09)
[2024-10-12] MEDS: NS 250 ML IV 250 ML IV ONE (10:53)
[2024-10-12] MEDS: COLACE CAP 100 MG PO STA (11:33)
[2024-10-12] MEDS: MIRALAX POWDER (1 DOSE 17 G) PO ONE (11:33)
[2024-10-12] MEDS: NORCO 5/325 MG TAB PO PRN (11:42)
[2024-10-12 14:12] LABS: HEMATOCRIT 25.1 % (42.0-54.0); HEMOGLOBIN 8.2 g/dL (13.5-18.0)
[2024-10-12] MEDS: CYTOTEC PO SCH (16:04)
[2024-10-12] MEDS: NovoLIN R (or HumuLIN R) SUBCUT PRN (16:05)
[2024-10-12] MEDS ORDERED: SNACK - Diabetic Appropriate PO SCH (20:00)
[2024-10-12 20:30] LABS: HEMATOCRIT 28.8 % (42.0-54.0); HEMOGLOBIN 9.5 g/dL (13.5-18.0)
[2024-10-12] MEDS: COLACE CAP 100 MG PO SCH (20:54)
[2024-10-12] MEDS ORDERED: COLACE CAP 100 MG PO SCH (21:00)
[2024-10-13 05:19] LABS: BASOPHILS # (AUTO) 0.1 X10^3/uL (0.0-0.1); BASOPHILS % (AUTO) 0.5 % (0.2-1.0); EOSINOPHILS # (AUTO) 0.4 x10^3/uL (0.0-0.2); HEMATOCRIT 30.6 % (42.0-54.0); HEMOGLOBIN 9.9 g/dL (13.5-18.0); LYMPHOCYTES # (AUTO) 0.5 X10^3/uL (1.3-2.9); LYMPHOCYTES % (AUTO) 5.1 % (21.0-51.0); MEAN CORPUSCULAR HEMOGLOBIN 23.4 pg (27.0-34.0); MEAN CORPUSCULAR HGB CONC 32.5 g/dL (33.0-35.0); MEAN PLATELET VOLUME 7.5 fL (7.4-11.0); MONOCYTES # (AUTO) 0.5 x10^3/uL (0.3-0.8); MONOCYTES % (AUTO) 4.8 % (0.0-13.0); NEUTROPHILS # (AUTO) 8.7 x10^3/uL (2.2-4.8); NEUTROPHILS % (AUTO) 85.6 % (42.0-75.0); PLATELET COUNT 190 X10^3/uL (150.0-450.0); RED BLOOD COUNT 4.24 X10^6/uL (4.7-6.0); RED CELL DISTRIBUTION WIDTH 19.6 % (11.6-16.5); WHITE BLOOD COUNT 10.2 X10^3/uL (3.6-10.0)
[2024-10-13 05:29] LABS: ALBUMIN 1.8 g/dL (3.4-5.0); CALCIUM 8.9 mg/dL (8.5-10.1); CARBON DIOXIDE 29.4 mmol/L (21-32); COR CA(FOR HYPOALB) 10.7 mg/dL (8.5-10.1); CREATININE 2.72 mg/dL (0.70-1.30); MAGNESIUM 1.5 mg/dL (2.0-2.9); POTASSIUM 3.5 mmol/L (3.5-5.1); TOTAL PROTEIN 5.9 g/dL (6.4-8.2)
[2024-10-13 05:46] LABS: ANISOCYTOSIS SLIGHT; HYPOCHROMASIA 1+; MICROCYTOSIS SLIGHT; PLATELET MORPHOLOGY COMMENT NORMAL (NORMAL)
[2024-10-13] MEDS ORDERED: CONSULT PHARMACY - POTASSIUM & MAGNESIUM XX SCH (09:00)
[2024-10-13] MEDS ORDERED: STERILE WATER IRRIGATION IR ONE (10:06)
[2024-10-13] MEDS ORDERED: NS 250 ML IV 250 ML IV ONE (10:11)
[2024-10-13] MEDS: PROCRIT or EPOGEN VIAL 10,000 UNITS SC ONE (10:26)
[2024-10-13] MEDS: K-DUR TAB 20 MEQ PO SCH (10:29)
[2024-10-13] MEDS: MAG-OX TAB PO SCH (10:30)
[2024-10-13] MEDS: INFeD or DEXFERRUM 25 MG in NS 100 ML IV 100 ML IV ONE (10:35)
[2024-10-13] MEDS: DILAUDID INJ IVP PRN (12:25)
[2024-10-13] MEDS: ZOFRAN INJ 4 MG VIAL IVP PRN (12:27)
[2024-10-13] MEDS: NS 1,000 ML IV 1,000 ML IV SCH (12:33)
[2024-10-13] MEDS: INFeD or DEXFERRUM 975 MG in NS 500 ML IV 500 ML IV ONE (13:08)
[2024-10-13] MEDS: PROTONIX TAB 40 MG PO SCH (15:02)
--- NOTE | 2024-10-13 20:33 | RAD ---
EXAM: ABDOMEN X-RAY (or KUB) HISTORY: Abdominal pain. TECHNIQUE: Supine view COMPARISON: None. FINDINGS: There are mildly dilated air-filled small and large bowel loops within the abdomen and pelvis in keep ing with ileus in the appropriate clinical setting; cannot rule out sequela of gastroenteritis. Cons ider follow evaluation with CT for further assessment as clinically warranted. There is no gross organomegaly, free intraperitoneal air, or suspicious calcifications seen. There i s diffuse osteopenia. Status post bilateral hip hemiarthroplasties. The visualized bony structures are otherwise within normal limits. IMPRESSION: 1. Mildly dilated air-filled small and large bowel loops within the abdomen and pelvis in keeping wi th ileus in the appropriate clinical setting; cannot rule out sequela of gastroenteritis. 2. Consider follow evaluation with CT for further assessment as clinically warranted. THIS IS AN ELECTRONICALLY VERIFIED FINAL REPORT 10/13/2024 8:30 PM - Electronically signed by Tony Mathews MD
[2024-10-14 06:06] LABS: BASOPHILS % (AUTO) 0.5 % (0.2-1.0); EOSINOPHILS # (AUTO) 0.5 x10^3/uL (0.0-0.2); EOSINOPHILS % (AUTO) 5.2 % (0.9-2.9); HEMATOCRIT 30.9 % (42.0-54.0); LYMPHOCYTES # (AUTO) 0.6 X10^3/uL (1.3-2.9); LYMPHOCYTES % (AUTO) 6.7 % (21.0-51.0); MEAN CORPUSCULAR HEMOGLOBIN 23.5 pg (27.0-34.0); MEAN CORPUSCULAR HGB CONC 32.3 g/dL (33.0-35.0); MEAN CORPUSCULAR VOLUME 72.7 fL (80.0-100.0); MEAN PLATELET VOLUME 7.2 fL (7.4-11.0); MONOCYTES # (AUTO) 0.5 x10^3/uL (0.3-0.8); MONOCYTES % (AUTO) 4.9 % (0.0-13.0); NEUTROPHILS # (AUTO) 7.9 x10^3/uL (2.2-4.8); NEUTROPHILS % (AUTO) 82.7 % (42.0-75.0); PLATELET COUNT 208 X10^3/uL (150.0-450.0); RED BLOOD COUNT 4.25 X10^6/uL (4.7-6.0); RED CELL DISTRIBUTION WIDTH 20.2 % (11.6-16.5); WHITE BLOOD COUNT 9.5 X10^3/uL (3.6-10.0)
[2024-10-14 06:28] LABS: ALBUMIN 1.6 g/dL (3.4-5.0); CALCIUM 8.7 mg/dL (8.5-10.1); CARBON DIOXIDE 29.2 mmol/L (21-32); COR CA(FOR HYPOALB) 10.6 mg/dL (8.5-10.1); CREATININE 2.58 mg/dL (0.70-1.30); MAGNESIUM 1.8 mg/dL (2.0-2.9); POTASSIUM 4.3 mmol/L (3.5-5.1); TOTAL PROTEIN 5.6 g/dL (6.4-8.2)
[2024-10-14 06:49] LABS: ANISOCYTOSIS 1+; HYPOCHROMASIA 1+; PLATELET MORPHOLOGY COMMENT NORMAL (NORMAL)
[2024-10-14 06:50] LABS: MICROCYTOSIS SLIGHT
[2024-10-14] MEDS: NS 1,000 ML IV 250 ML IV PRN (07:30)
[2024-10-14] MEDS ORDERED: NS 1,000 ML IV 1,000 ML ONE (07:35)
[2024-10-14] MEDS: DIPRIVAN VIAL 80 ML IVP PRN (07:40)
[2024-10-14] MEDS ORDERED: FLOMAX PO SCH (09:00)
[2024-10-14] MEDS: GOLYTELY or GAVILYTE or Equivalent PO SCH (11:12)
[2024-10-14 11:38] VITALS: BMI 24.1
[2024-10-14] MEDS: VISTARIL PO PRN (15:42)
[2024-10-14] MEDS: FLOMAX PO SCH (20:38)
[2024-10-15] MEDS: BENADRYL INJ 50 MG VIAL IVP PRN (02:16)
[2024-10-15 06:21] LABS: BASOPHILS % (AUTO) 0.3 % (0.2-1.0); EOSINOPHILS # (AUTO) 0.5 x10^3/uL (0.0-0.2); EOSINOPHILS % (AUTO) 3.8 % (0.9-2.9); HEMATOCRIT 34.6 % (42.0-54.0); HEMOGLOBIN 10.8 g/dL (13.5-18.0); LYMPHOCYTES # (AUTO) 0.5 X10^3/uL (1.3-2.9); LYMPHOCYTES % (AUTO) 4.3 % (21.0-51.0); MEAN CORPUSCULAR HEMOGLOBIN 22.9 pg (27.0-34.0); MEAN CORPUSCULAR HGB CONC 31.2 g/dL (33.0-35.0); MEAN CORPUSCULAR VOLUME 73.4 fL (80.0-100.0); MEAN PLATELET VOLUME 7.3 fL (7.4-11.0); MONOCYTES # (AUTO) 0.7 x10^3/uL (0.3-0.8); MONOCYTES % (AUTO) 5.7 % (0.0-13.0); NEUTROPHILS # (AUTO) 10.4 x10^3/uL (2.2-4.8); NEUTROPHILS % (AUTO) 85.9 % (42.0-75.0); PLATELET COUNT 233 X10^3/uL (150.0-450.0); RED BLOOD COUNT 4.71 X10^6/uL (4.7-6.0); RED CELL DISTRIBUTION WIDTH 20.3 % (11.6-16.5); WHITE BLOOD COUNT 12.1 X10^3/uL (3.6-10.0)
[2024-10-15 06:36] LABS: ALBUMIN 1.7 g/dL (3.4-5.0); CALCIUM 8.9 mg/dL (8.5-10.1); CARBON DIOXIDE 26.4 mmol/L (21-32); COR CA(FOR HYPOALB) 10.7 mg/dL (8.5-10.1); CREATININE 2.44 mg/dL (0.70-1.30); PLATELET MORPHOLOGY COMMENT NORMAL (NORMAL); POTASSIUM 4.3 mmol/L (3.5-5.1); TOTAL PROTEIN 5.6 g/dL (6.4-8.2)
[2024-10-15 06:37] LABS: ANISOCYTOSIS 1+; HYPOCHROMASIA 1+; MICROCYTOSIS SLIGHT; OVALOCYTES SLIGHT; TARGET CELLS SLIGHT
[2024-10-15] MEDS: NS 1,000 ML IV 250 ML IV PRN (09:27)
[2024-10-15] MEDS: DIPRIVAN VIAL 90 ML IVP PRN (09:35)
[2024-10-15] MEDS: NEO-SYNEPHRINE INJ IVP PRN (10:00)
[2024-10-15] MEDS ORDERED: STERILE WATER IRRIGATION IR ONE (10:07)
[2024-10-15 12:04] LABS: BILIRUBIN,URINE NEGATIVE (NEGATIVE); BLOOD/HEMOGLOBIN,URINE 4+ (NEGATIVE); GLUCOSE, URINE NEGATIVE (NEGATIVE); KETONES,URINE NEGATIVE (NEGATIVE); LEUKOCYTE ESTERASE ,URINE 3+ (NEGATIVE); NITRITES,URINE POSITIVE (NEGATIVE); PROTEIN,URINE 3+ (NEGATIVE); UROBILINOGEN,URINE NORMAL (NORMAL)
[2024-10-15 12:15] LABS: APPEARANCE,URINE CLOUDY (CLEAR); COLOR,URINE YELLOW (YELLOW); RBC,URINE NONE SEEN /HPF (0-3)
[2024-10-15 12:16] LABS: BACTERIA,URINE TRACE /HPF (NEGATIVE); SQUAMOUS EPITHELIAL CELL,UR NEGATIVE /HPF (NEGATIVE)
[2024-10-15] MEDS: BUTT CREAM (COMPOUND) ONE (14:17)
[2024-10-15] MEDS ORDERED: TOPROL XL PO ONE (14:42)
[2024-10-15] MEDS: CIPRO IV 400 MG PREMIX* 400 MG/200 ML IV.SOLN. IV SCH (14:45)
[2024-10-15] MEDS: TOPROL XL PO SCH (14:45)
[2024-10-16 06:11] LABS: BASOPHILS % (AUTO) 0.3 % (0.2-1.0); EOSINOPHILS # (AUTO) 0.2 x10^3/uL (0.0-0.2); EOSINOPHILS % (AUTO) 1.8 % (0.9-2.9); HEMATOCRIT 30.5 % (42.0-54.0); HEMOGLOBIN 9.7 g/dL (13.5-18.0); LYMPHOCYTES # (AUTO) 0.6 X10^3/uL (1.3-2.9); LYMPHOCYTES % (AUTO) 5.1 % (21.0-51.0); MEAN CORPUSCULAR HEMOGLOBIN 23.2 pg (27.0-34.0); MEAN CORPUSCULAR HGB CONC 31.8 g/dL (33.0-35.0); MEAN CORPUSCULAR VOLUME 73.1 fL (80.0-100.0); MEAN PLATELET VOLUME 7.1 fL (7.4-11.0); MONOCYTES # (AUTO) 0.7 x10^3/uL (0.3-0.8); MONOCYTES % (AUTO) 5.9 % (0.0-13.0); NEUTROPHILS % (AUTO) 86.9 % (42.0-75.0); PLATELET COUNT 224 X10^3/uL (150.0-450.0); RED BLOOD COUNT 4.17 X10^6/uL (4.7-6.0); RED CELL DISTRIBUTION WIDTH 20.8 % (11.6-16.5); WHITE BLOOD COUNT 11.5 X10^3/uL (3.6-10.0)
[2024-10-16 06:21] LABS: ANISOCYTOSIS 1+; HYPOCHROMASIA 1+; MICROCYTOSIS SLIGHT; OVALOCYTES PRESENT; PLATELET MORPHOLOGY COMMENT NORMAL (NORMAL)
[2024-10-16 06:28] LABS: ALBUMIN 1.5 g/dL (3.4-5.0); CARBON DIOXIDE 26.5 mmol/L (21-32); CREATININE 2.25 mg/dL (0.70-1.30); MAGNESIUM 1.9 mg/dL (2.0-2.9); POTASSIUM 3.9 mmol/L (3.5-5.1); TOTAL PROTEIN 5.1 g/dL (6.4-8.2)
[2024-10-16] MEDS ORDERED: TOPROL XL PO ONE (07:04)
[2024-10-16] MEDS: ALPRAZOLAM ODT PO PRN (08:55)
--- NOTE | 2024-10-16 15:10 | EKG ---
Test Reason : afib/preop Blood Pressure : */* mmHG Vent. Rate : 77 BPM Atrial Rate : 74 BPM P-R Int : 184 ms QRS Dur : 78 ms QT Int : 394 ms P-R-T Axes : 60 -25 5 degrees QTc Int : 445 ms Sinus rhythm with occasional atrial paced and short runs atrial tach with variable block When compared with ECG of 27-DEC-2023 17:54, Sinus rhythm has replaced Atrial fibrillation Confirmed by Mingo Patel MD ([id number]) on 10/16/2024 4:28:03 PM Referred By: Confirmed By: Mingo Patel MD
[2024-10-16 16:30] LABS: INR > 10 (0.8-1.3)
[2024-10-16] MEDS: AQUA-MEPHYTON ADULT INJ 5 MG in NS 50 ML IV 50 ML IV ONE (17:15)
[2024-10-16] MEDS: ALBUMIN HUMAN 25%- 100 ML 100 ML IV SCH (17:47)
[2024-10-16] MEDS: NEO-SYNEPHRINE INJ ONE (20:14)
[2024-10-16] MEDS: DIPRIVAN VIAL 20 ML ONE (20:14)
[2024-10-17 00:49] LABS: INR 2.16 (0.8-1.3)
[2024-10-17 05:58] LABS: BASOPHILS % (AUTO) 0.2 % (0.2-1.0); EOSINOPHILS # (AUTO) 0.4 x10^3/uL (0.0-0.2); EOSINOPHILS % (AUTO) 4.6 % (0.9-2.9); HEMATOCRIT 29.8 % (42.0-54.0); HEMOGLOBIN 9.7 g/dL (13.5-18.0); LYMPHOCYTES # (AUTO) 0.5 X10^3/uL (1.3-2.9); LYMPHOCYTES % (AUTO) 5.4 % (21.0-51.0); MEAN CORPUSCULAR HEMOGLOBIN 23.9 pg (27.0-34.0); MEAN CORPUSCULAR HGB CONC 32.4 g/dL (33.0-35.0); MEAN CORPUSCULAR VOLUME 73.6 fL (80.0-100.0); MEAN PLATELET VOLUME 7.1 fL (7.4-11.0); MONOCYTES # (AUTO) 0.5 x10^3/uL (0.3-0.8); MONOCYTES % (AUTO) 5.1 % (0.0-13.0); NEUTROPHILS % (AUTO) 84.7 % (42.0-75.0); PLATELET COUNT 191 X10^3/uL (150.0-450.0); RED BLOOD COUNT 4.05 X10^6/uL (4.7-6.0); RED CELL DISTRIBUTION WIDTH 21.1 % (11.6-16.5); WHITE BLOOD COUNT 9.4 X10^3/uL (3.6-10.0)
[2024-10-17 06:13] LABS: ALANINE AMINOTRANSFERASE 11 Units/L (12-78); ALBUMIN 1.9 g/dL (3.4-5.0); ALKALINE PHOSPHATASE 76 Units/L (46-116); ASPARTATE AMINO TRANSFERASE 11 Units/L (15-37); BLOOD UREA NITROGEN 45 mg/dL (7-18); CALCIUM 9.4 mg/dL (8.5-10.1); CARBON DIOXIDE 27.2 mmol/L (21-32); CHLORIDE 106 mmol/L (98-107); COR CA(FOR HYPOALB) 11.1 mg/dL (8.5-10.1); CREATININE 2.25 mg/dL (0.70-1.30); GLUCOSE 103 mg/dL (65-99); MAGNESIUM 1.9 mg/dL (2.0-2.9); POTASSIUM 3.7 mmol/L (3.5-5.1); SODIUM 140 mmol/L (136-145); TOTAL PROTEIN 5.1 g/dL (6.4-8.2); eGFR NON BLACK RACES 29 (>60)
[2024-10-17 06:55] LABS: ANISOCYTOSIS 1+; HYPOCHROMASIA 1+; MICROCYTOSIS SLIGHT; OVALOCYTES SLIGHT; PLATELET MORPHOLOGY COMMENT NORMAL (NORMAL)
[2024-10-17] MEDS ORDERED: CONSULT PHARMACY - POTASSIUM & MAGNESIUM XX SCH (07:00)
[2024-10-17] MEDS ORDERED: TOPROL XL PO ONE (08:25)
--- NOTE | 2024-10-17 08:42 | DR.CONSULT ---
CONSULT Consultation for Day of: Date: 10/17/24 Chief Complaint Chief Complaint: preop clearance/abd pain Allergies Allergies Allergy/AdvReac Type Severity Reaction Status Date / Time No Known Drug Allergies Allergy Verified 10/11/24 21:07 History of Present Illness History of Present Illness: 88 yo male- Pafib/pacemaker- cath > 15 years ago w/o cad- pacer check 09/16: 7 years battery-admitted for abd pain/anemia- found to be partially obstructed from mass- needs surgery- had hip surgery w/o problem- walks at home w walker- doing rehab- no cp/sob/syncope- legs swollen- on bb/coumadin for pafib Past Medical History Past Medical History: Diabetes Past Surgical History Surgical History: Appendectomy and Joint Replacement Family History Family Medical History: Diabetes Mellitus Social History Does patient currently use any type of tobacco product: No Have you used tobacco products in the last 12 months: No Type of Tobacco Use: None Does any household member use tobacco: No Alcohol Use: None Drug Use: None Medications Home Medications: No Known Drug Allergies Allergy (Verified 10/11/24 21:07) CONTINUE taking the following medications alprazolam 1 mg tablet 1 mg PO BID 10/11/24 [History] atenolol 50 mg-chlorthalidone 25 mg tablet 1 tab PO QDAY 10/11/24 [History] citalopram 20 mg tablet 20 mg PO QPM 10/11/24 [History] furosemide 20 mg tablet 20 mg PO QDAY 10/11/24 [History] furosemide 40 mg tablet 40 mg DAILY PRN 10/11/24 [History] warfarin 5 mg tablet 2.5 mg PO .MON,TUE,WED,FRI,SAT 10/12/24 [History] Physical Exam Vital Signs: Vital Signs Temperature 98.2 F Temperature 97.9 F Pulse Rate [Right Brachial] 102 Pulse Rate [Right Brachial] 84 Respiratory Rate 19 Respiratory Rate 19 Blood Pressure [Right Arm] 117/57 Blood Pressure [Left Arm] 109/55 O2 Sat by Pulse Oximetry 97 O2 Sat by Pulse Oximetry 97 [place] clear lungs tachy/irreg abd: bloated minimal edema ekg: nsr , occ apaced, some atrial tach tele: sinus/pacs echo: lvh, normal lv -was in sinus labs: hct 29-down from 34 2 days ago, inr was >10- now 2.16 after vit K, cr 2.25-down from 3.28 albumin 1.9 up from 1.5 w albumin Plan (1) Preop cardiovascular exam: Status: Acute Narrative Support Text: high risk due to age/overall health/nutritional status/kidneys but not prohibitive and surgery needed to prevent obstruction Plan: get inr 1- push ensure/albumin as can to get some nutrition in preop- cont bb- keep hct > 28 to prevent ischemia (2) Paroxysmal A-fib: Status: Acute (3) CKD (chronic kidney disease) stage 3, GFR 30-59 ml/min: Status: Acute Qualifiers: Chronic kidney disease stage 3 subtype: stage 3b (GFR 30-44) Qualified Code(s): N18.32 - Chronic kidney disease, stage 3b (4) Elevated INR: Status: Acute Plan: reverse w vit k until inr 1- post op when bleeding risk low-resume slowly (5) Low serum albumin: Status: Acute Plan: push nutrition/ensure/iv albumin
[2024-10-17] MEDS: K-DUR TAB 20 MEQ PO SCH (08:45)
[2024-10-17] MEDS: MEPHYTON PO SCH (09:24)
[2024-10-17 10:17] LABS: INR 1.56 (0.8-1.3)
[2024-10-17] MEDS: CITROMA PO ONE (10:25)
--- NOTE | 2024-10-17 10:26 | DR.PROGNOT ---
HOSPITAL PROGRESS NOTE Progress Note for Day of: Progress Note Date: 10/17/24 Chief Complaint Chief Complaint: moderate abdominal pain no vomiting . WBC 9.4 INR 1.5 , PTT 18.3, BUN 45 ,Creat 2.2. no active bleding . Past Medical Family Social History Allergies: Allergies No Known Drug Allergies Allergy (Verified 10/11/24 21:07) Review Of Systems ROS: No change since H&P Vital Signs Vital Signs: Vital Signs Temperature 98.2 F Temperature 97.9 F Pulse Rate [Right Brachial] 102 Pulse Rate [Right Brachial] 84 Respiratory Rate 19 Respiratory Rate 19 Blood Pressure [Right Arm] 117/57 Blood Pressure [Left Arm] 109/55 O2 Sat by Pulse Oximetry 97 O2 Sat by Pulse Oximetry 97 Physical Exam Speech Pattern: Clear Laboratory and Diagnostics 10/17/24 05:15 10/17/24 05:15 Labs: 10/15/24 11:45 Urine,Catheterized Urine Culture - Final Pseudomonas Aeruginosa Laboratory WBC 9.4 X10^3/uL (3.6-10.0) 10/17/24 05:15 RBC 4.05 X10^6/uL (4.7-6.0) L 10/17/24 05:15 Hgb 9.7 g/dL (13.5-18.0) L 10/17/24 05:15 Hct 29.8 % (42.0-54.0) L 10/17/24 05:15 MCV 73.6 fL (80.0-100.0) L 10/17/24 05:15 MCH 23.9 pg (27.0-34.0) L 10/17/24 05:15 MCHC 32.4 g/dL (33.0-35.0) L 10/17/24 05:15 RDW 21.1 % (11.6-16.5) H 10/17/24 05:15 Plt Count 191 X10^3/uL (150.0-450.0) 10/17/24 05:15 Plt Count Comment Adequate (ADEQUATE) 10/17/24 05:15 MPV 7.1 fL (7.4-11.0) L 10/17/24 05:15 Neut % (Auto) 84.7 % (42.0-75.0) H 10/17/24 05:15 Lymph % (Auto) 5.4 % (21.0-51.0) L 10/17/24 05:15 [place] % (Auto) 5.1 % (0.0-13.0) 10/17/24 05:15 Eos % (Auto) 4.6 % (0.9-2.9) H 10/17/24 05:15 Baso % (Auto) 0.2 % (0.2-1.0) 10/17/24 05:15 Neut # (Auto) 8.0 x10^3/uL (2.2-4.8) H 10/17/24 05:15 Lymph # (Auto) 0.5 X10^3/uL (1.3-2.9) L 10/17/24 05:15 [place] # (Auto) 0.5 x10^3/uL (0.3-0.8) 10/17/24 05:15 Eos # (Auto) 0.4 x10^3/uL (0.0-0.2) H 10/17/24 05:15 Baso # (Auto) 0.0 X10^3/uL (0.0-0.1) 10/17/24 05:15 Absolute Nucleated RBC 0.0 /100WBC 10/17/24 05:15 Total Counted 100 10/11/24 21:25 Neutrophils % (Manual) 92 % (39-76) H 10/11/24 21:25 Band Neutrophils % 2 % (0-10) 10/11/24 21:25 Lymphocytes % (Manual) 4 % (13-43) L 10/11/24 21:25 Monocytes % (Manual) 2 % (4-9) L 10/11/24 21:25 Plt Morphology Comment Normal (NORMAL) 10/17/24 05:15 RBC Morphology Abnormal (NORMAL) 10/17/24 05:15 Hypochromasia 1+ A 10/17/24 05:15 Anisocytosis 1+ A 10/17/24 05:15 Microcytosis Slight A 10/17/24 05:15 Target Cells Slight A 10/15/24 05:43 Ovalocytes Slight A 10/17/24 05:15 PT 18.3 SECONDS (11.8-14.3) 10/17/24 09:56 INR Target Range - 10/17/24 09:56 INR 1.56 (0.8-1.3) H 10/17/24 09:56 APTT 43.9 SECONDS (22.9-36.5) H 10/12/24 07:55 PTT Comment - 10/12/24 07:55 Sodium 140 mmol/L (136-145) 10/17/24 05:15 Corrected Sodium TNP 10/17/24 05:15 Potassium 3.7 mmol/L (3.5-5.1) 10/17/24 05:15 Chloride 106 mmol/L (98-107) 10/17/24 05:15 Carbon Dioxide 27.2 mmol/L (21-32) 10/17/24 05:15 BUN 45 mg/dL (7-18) H 10/17/24 05:15 Creatinine 2.25 mg/dL (0.70-1.30) H 10/17/24 05:15 Est GFR (MDRD) Af Amer 36 (>60) L 10/17/24 05:15 Est GFR (MDRD) Non-Af 29 (>60) L 10/17/24 05:15 Glucose 103 mg/dL (65-99) H 10/17/24 05:15 POC Glucose (mg/dL) 95 mg/dL (65-99) 10/17/24 05:21 Calcium 9.4 mg/dL (8.5-10.1) 10/17/24 05:15 Corrected Calcium 11.1 mg/dL (8.5-10.1) H 10/17/24 05:15 Magnesium 1.9 mg/dL (2.0-2.9) L 10/17/24 05:15 Ferritin 47 ng/mL (26-388) 10/12/24 07:55 Total Bilirubin 0.90 mg/dL (0.2-1.0) 10/17/24 05:15 AST 11 Units/L (15-37) L 10/17/24 05:15 ALT 11 Units/L (12-78) L 10/17/24 05:15 Alkaline Phosphatase 76 Units/L (46-116) 10/17/24 05:15 Total Protein 5.1 g/dL (6.4-8.2) L 10/17/24 05:15 Albumin 1.9 g/dL (3.4-5.0) L 10/17/24 05:15 Globulin 3.2 g/dL (2.5-4.5) 10/17/24 05:15 Albumin/Globulin Ratio 0.6 Ratio (1.1-2.1) L 10/17/24 05:15 Lipase 33 Units/L (16-77) 10/11/24 21:25 Specimen Type Catherized urine 10/15/24 11:45 Urine Color Yellow (YELLOW) 10/15/24 11:45 Urine Appearance Cloudy (CLEAR) 10/15/24 11:45 Urine pH 6.0 (5.0 - 8.0) 10/15/24 11:45 Ur Specific [place] 1.020 (1.000-1.030) 10/15/24 11:45 Urine Protein 3+ (NEGATIVE) 10/15/24 11:45 Urine Glucose (UA) Negative (NEGATIVE) 10/15/24 11:45 Urine Ketones Negative (NEGATIVE) 10/15/24 11:45 Urine Blood 4+ (NEGATIVE) 10/15/24 11:45 Urine Nitrite Positive (NEGATIVE) 10/15/24 11:45 Urine Bilirubin Negative (NEGATIVE) 10/15/24 11:45 Urine Urobilinogen Normal (NORMAL) 10/15/24 11:45 Ur Leukocyte Esterase 3+ (NEGATIVE) 10/15/24 11:45 Urine RBC None seen /HPF (0-3) 10/15/24 11:45 Urine WBC Tntc /HPF (0-5) A 10/15/24 11:45 Ur Squamous Epith Cells Negative /HPF (NEGATIVE) 10/15/24 11:45 Urine Bacteria Trace /HPF (NEGATIVE) 10/15/24 11:45 Ur Culture Indicated? Yes/culture set up 10/15/24 11:45 Stl Occult Blood (IFOB) Positive (NEGATIVE) A 10/12/24 13:00 Blood Type B POSITIVE 10/11/24 23:25 Antibody Screen Negative 10/11/24 23:25 Crossmatch See Detail 10/11/24 23:25 Assessment and Plan 1: colon cancer . for colectomy in am after correction of his coagulopathy . D/W Pt and his all risks in details 2: CKD 3: A Fib Problem Patient Problems: Patient Problems Anemia (Acute) D64.9 Stage 5 chronic kidney disease (Acute) N18.5 Abdominal pain (Acute) R10.9 Bedbound (Acute) Z74.01 Long-term (current) use of anticoagulants, INR goal 2.0-3.0 (Acute) Z79.01
[2024-10-17 13:36] LABS: INR 1.64 (0.8-1.3)
--- NOTE | 2024-10-17 16:56 | RAD ---
EXAM:CHEST, 1 VIEWHISTORY:PICC LINE PLACEMENT;COMPARISON:None.TECHNIQUE:1 frontal view of the chestFINDINGS:Right-sided PICC line is noted with tip overlying superior vena cava. Pacemaker with power pack on the left. The heart is enlarged. There is pulmonary vascular prominence. Bilateral interstitial and airspace opacities are present.IMPRESSION:Satisfactory position of the PICC linePulmonary vascular congestion/congestive heart failure.THIS IS AN ELECTRONICALLY VERIFIED FINAL REPORT10/17/2024 4:52 PM - Electronically signed by Catrachito Ellison MD
--- NOTE | 2024-10-17 17:03 | DR.UPDATE ---
H&P Update Prescription drug monitoring program results: PDMP was not reviewed H&P Reviewed: Yes Any changes to H&P?: No Patient was examined?: Yes Vital Signs: Temp Pulse Pulse Resp BP BP Pulse Ox 10/17/24 16:00 99.9 F H 100 H 19 136/55 98 10/17/24 12:00 99.0 F 79 19 112/55 94 L 10/17/24 12:00 99.0 F 79 19 112/55 97 10/17/24 09:20 10/17/24 07:00 10/17/24 08:00 98.2 F 102 H 19 109/55 97 10/17/24 04:00 97.9 F 84 19 117/57 97 10/17/24 00:00 97.9 F 83 19 97/55 93 L 10/16/24 22:26 19 10/16/24 19:00 10/16/24 21:26 18 10/16/24 19:51 98.1 F 77 19 113/54 100 10/16/24 19:05 83 97 10/16/24 19:05 10/16/24 16:00 98.5 F 105 H 18 112/54 98 10/16/24 11:18 98.6 F 68 18 138/60 99 10/16/24 09:14 18 10/16/24 08:51 18 10/16/24 07:42 98.1 F 88 18 127/56 97 10/16/24 07:00 10/16/24 07:23 21 10/16/24 03:53 98 F 88 20 106/53 97 10/16/24 00:00 98.4 F 89 18 121/57 93 L 10/15/24 19:00 10/15/24 20:00 98.1 F 120 H 19 111/57 97 10/15/24 20:15 98 H 94 L 10/15/24 20:15 10/15/24 16:00 97.5 F L 121 H 20 119/73 96 10/15/24 15:09 97.4 F L 114 H 20 124/66 98 10/15/24 14:09 97.1 F L 121 H 19 120/68 97 10/15/24 13:09 97.5 F L 128 H 18 119/66 95 10/15/24 12:09 97.4 F L 118 H 17 123/61 97 10/15/24 11:09 97.2 F L 121 H 18 118/56 97 10/15/24 10:54 97.5 F L 116 H 20 120/57 98 10/15/24 10:39 97.3 F L 118 H 18 115/58 98 10/15/24 10:24 97.4 F L 119 H 20 117/59 100 10/15/24 10:09 97.2 F L 124 H 22 126/67 97 10/15/24 08:00 98.8 F 123 H 20 127/69 96 10/15/24 07:57 17 10/15/24 07:27 19 10/15/24 07:00 10/15/24 04:00 98.0 F 101 H 18 127/73 95 10/15/24 04:13 10/14/24 23:38 20 10/15/24 00:00 97.9 F 92 H 16 129/84 94 L 10/14/24 20:00 85 94 L 10/14/24 20:00 10/14/24 23:08 18 10/14/24 21:39 18 10/14/24 20:00 97.9 F 83 20 133/75 94 L 10/14/24 19:00 10/14/24 20:39 18 O2 Del Method O2 Flow Rate FiO2 10/17/24 16:00 Nasal Cannula 2 10/17/24 12:00 Nasal Cannula 2 10/17/24 12:00 Nasal Cannula 2 10/17/24 09:20 Nasal Cannula 2 10/17/24 07:00 Nasal Cannula 2 10/17/24 08:00 Nasal Cannula 2 10/17/24 04:00 Nasal Cannula 2 10/17/24 00:00 Nasal Cannula 2 10/16/24 22:26 10/16/24 19:00 Nasal Cannula 2 10/16/24 21:26 10/16/24 19:51 Nasal Cannula 2 10/16/24 19:05 10/16/24 19:05 Nasal Cannula 2 10/16/24 16:00 Nasal Cannula 2 10/16/24 11:18 Nasal Cannula 2 10/16/24 09:14 10/16/24 08:51 Nasal Cannula 2 10/16/24 07:42 Nasal Cannula 2 10/16/24 07:00 Nasal Cannula 2 10/16/24 07:23 10/16/24 03:53 Nasal Cannula 2 10/16/24 00:00 Nasal Cannula 2 10/15/24 19:00 Nasal Cannula 2 10/15/24 20:00 Nasal Cannula 2 10/15/24 20:15 10/15/24 20:15 Nasal Cannula 2 28 10/15/24 16:00 Nasal Cannula 2 10/15/24 15:09 Nasal Cannula 2 10/15/24 14:09 Nasal Cannula 2 10/15/24 13:09 Nasal Cannula 2 10/15/24 12:09 Nasal Cannula 2 10/15/24 11:09 Nasal Cannula 2 10/15/24 10:54 Nasal Cannula 2 10/15/24 10:39 Nasal Cannula 2 10/15/24 10:24 Nasal Cannula 2 10/15/24 10:09 Nasal Cannula 2 10/15/24 08:00 Nasal Cannula 2 10/15/24 07:57 10/15/24 07:27 10/15/24 07:00 Nasal Cannula 2 10/15/24 04:00 Nasal Cannula 2 10/15/24 04:13 Nasal Cannula 2 10/14/24 23:38 10/15/24 00:00 Nasal Cannula 2 10/14/24 20:00 10/14/24 20:00 Nasal Cannula 2 10/14/24 23:08 10/14/24 21:39 10/14/24 20:00 Nasal Cannula 2 10/14/24 19:00 Nasal Cannula 2 10/14/24 20:39 Procedures (ALL) - Central Line Placement PCM.CLCO: written consent Time out performed: Yes Patient placed pm monitor/pulse ox: Yes MD prep: mask, gown, gloves, other Centrial line prep: chlorhexidine scrub, sterile drapes applied Local anesthsia used: lidocane 1% Ultrasound used for placement: Yes (attempted left x1, able to cannulate right basilic) Central line lumen ininserted: double (5.5fr arrow picc, trimmed to 45cm with 10cm exposed) Post procedure: good blood return, all ports aspirated, flushed,capped, sterile dressing applied Post procedure xray: tip oc catheter in good position (appears svc per cxr) Patient tolerated procedure: Yes Complications: none
[2024-10-17] MEDS ORDERED: DEXTROSE 10% 1,000 ML IV PRN (18:35)
[2024-10-17] MEDS: CLINIMIX 5 %/20 % 1,000 ML with MVI INJ (ADULT) 10 ML, MAGNESIUM SULFATE 50% INJ VIAL 1 G IV SCH (21:00)
[2024-10-17] MEDS: DRUG FILTER EXTENSION SET ONE (21:50)
[2024-10-17] MEDS: BUTT CREAM (COMPOUND) TOP PRN (21:52)
[2024-10-17] MEDS: NovoLIN R (or HumuLIN R) SUBCUT PRN (21:52)
[2024-10-18] MEDS: HIBICLENS WASH EXT ONE (04:48)
[2024-10-18 07:29] LABS: BASOPHILS % (AUTO) 0.4 % (0.2-1.0); EOSINOPHILS # (AUTO) 0.5 x10^3/uL (0.0-0.2); EOSINOPHILS % (AUTO) 5.2 % (0.9-2.9); HEMOGLOBIN 9.9 g/dL (13.5-18.0); LYMPHOCYTES # (AUTO) 0.5 X10^3/uL (1.3-2.9); LYMPHOCYTES % (AUTO) 4.6 % (21.0-51.0); MEAN CORPUSCULAR HEMOGLOBIN 23.9 pg (27.0-34.0); MEAN CORPUSCULAR VOLUME 74.6 fL (80.0-100.0); MEAN PLATELET VOLUME 7.3 fL (7.4-11.0); MONOCYTES # (AUTO) 0.5 x10^3/uL (0.3-0.8); MONOCYTES % (AUTO) 5.1 % (0.0-13.0); NEUTROPHILS # (AUTO) 8.7 x10^3/uL (2.2-4.8); NEUTROPHILS % (AUTO) 84.7 % (42.0-75.0); PLATELET COUNT 208 X10^3/uL (150.0-450.0); RED BLOOD COUNT 4.16 X10^6/uL (4.7-6.0); RED CELL DISTRIBUTION WIDTH 22.4 % (11.6-16.5); WHITE BLOOD COUNT 10.3 X10^3/uL (3.6-10.0)
[2024-10-18 07:30] LABS: INR 1.88 (0.8-1.3)
[2024-10-18 07:37] LABS: PREALBUMIN 6.8 mg/dL (18-35.7)
[2024-10-18 07:47] LABS: ALBUMIN 1.9 g/dL (3.4-5.0); CALCIUM 9.3 mg/dL (8.5-10.1); CREATININE 2.28 mg/dL (0.70-1.30); MAGNESIUM 2.2 mg/dL (2.0-2.9); PHOSPHORUS 2.1 mg/dL (2.6-4.7); POTASSIUM 3.4 mmol/L (3.5-5.1); TOTAL PROTEIN 5.2 g/dL (6.4-8.2)
[2024-10-18 07:54] LABS: PLATELET MORPHOLOGY COMMENT NORMAL (NORMAL)
[2024-10-18 07:55] LABS: ANISOCYTOSIS 2+; HYPOCHROMASIA 1+; MICROCYTOSIS SLIGHT
[2024-10-18 07:56] LABS: TARGET CELLS SLIGHT
[2024-10-18 07:57] LABS: OVALOCYTES SLIGHT
[2024-10-18] MEDS: TOPROL XL PO ONE (08:42)
[2024-10-18] MEDS: PROVENTIL NEB TX 0.083% 2.5MG/ 3ML NEB ONE (09:58)
[2024-10-18] MEDS: NS 1,000 ML IV 2,000 ML ONE (10:30)
[2024-10-18] MEDS: NEXTERONE IV 150 MG PREMIX* 150 MG/100 ML BAG IV ONE (10:47)
[2024-10-18] MEDS: NEXTERONE IV 360 MG PREMIX* 360 MG/200 ML BAG IV PRN ×2 (11:05→17:13)
[2024-10-18] MEDS: LOPRESSOR INJ 5 MG AMP ONE (11:18)
[2024-10-18] MEDS: AMIDATE INJ 40 MG VIAL ONE (11:44)
[2024-10-18] MEDS: ANCEF VIAL 1 GRAM IV PRN (11:45)
[2024-10-18] MEDS: ZEMURON 100 MG VIAL ONE (11:45)
[2024-10-18] MEDS: FENTANYL VIAL INJ 250 mcg ONE (11:46)
[2024-10-18] MEDS: NEO-SYNEPHRINE INJ ONE (11:46)
[2024-10-18] MEDS: NS 500 ML IV 500 ML IV ONE (11:59)
[2024-10-18] MEDS: AQUA-MEPHYTON ADULT INJ 5 MG in NS 50 ML IV 50 ML IV ONE (12:00)
[2024-10-18] MEDS ORDERED: ULTANE GAS IN ONE (12:09)
[2024-10-18] MEDS: ANCEF VIAL 1 GRAM ONE (12:09)
[2024-10-18] MEDS: NS 100 ML IV 100 ML ONE (12:09)
[2024-10-18] MEDS: BRIDION ONE (14:09)
[2024-10-18] MEDS ORDERED: DILAUDID INJ IVP PRN (14:18)
[2024-10-18] MEDS: POLYMYXIN B SULFATE ONE (14:18)
[2024-10-18] MEDS ORDERED: BARHEMSYS INJ IVP PRN (14:18)
[2024-10-18] MEDS ORDERED: ZOFRAN INJ 4 MG VIAL IVP PRN (14:18)
[2024-10-18] MEDS ORDERED: BENADRYL INJ 50 MG VIAL IVP PRN (14:18)
--- NOTE | 2024-10-18 15:21 | EKG ---
Test Reason : AFIB Blood Pressure : */* mmHG Vent. Rate : 108 BPM Atrial Rate : * BPM P-R Int : * ms QRS Dur : 76 ms QT Int : 360 ms P-R-T Axes : * -29 69 degrees QTc Int : 482 ms Atrial fibrillation with rapid ventricular response with occasional ventricular-paced complexes Nonspecific ST and T wave abnormality Abnormal ECG When compared with ECG of 16-OCT-2024 14:49, Atrial fibrillation has replaced Sinus rhythm Confirmed by Mingo Patel MD ([id number]) on 10/19/2024 11:50:33 AM Referred By: Confirmed By: Mingo Patel MD
[2024-10-18 15:53] LABS: BASOPHILS # (AUTO) 0.2 X10^3/uL (0.0-0.1); BASOPHILS % (AUTO) 1.3 % (0.2-1.0); EOSINOPHILS # (AUTO) 0.3 x10^3/uL (0.0-0.2); EOSINOPHILS % (AUTO) 2.2 % (0.9-2.9); HEMATOCRIT 38.8 % (42.0-54.0); HEMOGLOBIN 12.3 g/dL (13.5-18.0); LYMPHOCYTES # (AUTO) 0.5 X10^3/uL (1.3-2.9); LYMPHOCYTES % (AUTO) 3.2 % (21.0-51.0); MEAN CORPUSCULAR HGB CONC 31.8 g/dL (33.0-35.0); MEAN CORPUSCULAR VOLUME 78.6 fL (80.0-100.0); MEAN PLATELET VOLUME 7.4 fL (7.4-11.0); MONOCYTES # (AUTO) 0.9 x10^3/uL (0.3-0.8); NEUTROPHILS # (AUTO) 13.1 x10^3/uL (2.2-4.8); NEUTROPHILS % (AUTO) 87.3 % (42.0-75.0); PLATELET COUNT 222 X10^3/uL (150.0-450.0); RED BLOOD COUNT 4.93 X10^6/uL (4.7-6.0); RED CELL DISTRIBUTION WIDTH 24.2 % (11.6-16.5)
[2024-10-18 15:53] LABS: BILIRUBIN,URINE NEGATIVE (NEGATIVE); BLOOD/HEMOGLOBIN,URINE 5+ (NEGATIVE); GLUCOSE, URINE NEGATIVE (NEGATIVE); KETONES,URINE NEGATIVE (NEGATIVE); LEUKOCYTE ESTERASE ,URINE 3+ (NEGATIVE); NITRITES,URINE NEGATIVE (NEGATIVE); PROTEIN,URINE 3+ (NEGATIVE); UROBILINOGEN,URINE NORMAL (NORMAL)
[2024-10-18 15:57] LABS: APPEARANCE,URINE CLOUDY (CLEAR); COLOR,URINE YELLOW (YELLOW)
[2024-10-18 16:06] LABS: BACTERIA,URINE 2+ /HPF (NEGATIVE); RBC,URINE TNTC /HPF (0-3); SQUAMOUS EPITHELIAL CELL,UR RARE /HPF (NEGATIVE)
[2024-10-18 16:20] LABS: PLATELET MORPHOLOGY COMMENT NORMAL (NORMAL)
[2024-10-18 16:21] LABS: ANISOCYTOSIS 3+; HYPOCHROMASIA SLIGHT; MICROCYTOSIS SLIGHT
[2024-10-18 16:22] LABS: OVALOCYTES SLIGHT; TARGET CELLS SLIGHT
[2024-10-18] MEDS: DILAUDID INJ IVP PRN (16:23)
[2024-10-18] MEDS: XOPENEX 1.25 MG/3 ML NEBULE NEB SCH (16:37)
[2024-10-18] MEDS: NS 1,000 ML IV 1,000 ML IV ONE ×2 (16:45→17:50)
--- NOTE | 2024-10-18 16:47 | EKG ---
Test Reason : V-TACH Blood Pressure : */* mmHG Vent. Rate : 120 BPM Atrial Rate : * BPM P-R Int : * ms QRS Dur : 70 ms QT Int : 354 ms P-R-T Axes : * -41 95 degrees QTc Int : 500 ms Atrial fibrillation with rapid ventricular response with frequent ventricular-paced complexes Left axis deviation Anterior infarct , age undetermined Abnormal ECG When compared with ECG of 18-OCT-2024 15:04, (Unconfirmed) Vent. rate has increased BY 12 BPM Confirmed by Mingo Patel MD ([id number]) on 10/19/2024 11:49:30 AM Referred By: Confirmed By: Mingo Patel MD
[2024-10-18] MEDS: NS 1,000 ML IV 1,000 ML IV SCH (16:53)
[2024-10-18] MEDS ORDERED: LEVOPHED 8 MG/250 ML IV *PREMIX 8 MG/250 ML PLAST..BAG IV ONE (17:11)
[2024-10-18] MEDS: LEVOPHED 8 MG/250 ML IV *PREMIX 8 MG/250 ML PLAST..BAG IV PRN (17:15)
[2024-10-18] MEDS ORDERED: NS 1,000 ML IV 1,000 ML ONE (17:47)
[2024-10-18] MEDS: XOPENEX 1.25 MG/3 ML NEBULE NEB ONE (18:28)
[2024-10-18] MEDS: OFIRMEV IV 1000 MG VIAL 0 MG/0 ML VIAL IV ONE (18:28)
[2024-10-18 18:54] LABS: BASOPHILS # (AUTO) 0.1 X10^3/uL (0.0-0.1); EOSINOPHILS # (AUTO) 0.4 x10^3/uL (0.0-0.2); HEMOGLOBIN 14.3 g/dL (13.5-18.0); RED BLOOD COUNT 5.79 X10^6/uL (4.7-6.0)
[2024-10-18 18:56] LABS: CALCIUM 8.4 mg/dL (8.5-10.1); CARBON DIOXIDE 17.6 mmol/L (21-32); CREATININE 2.4 mg/dL (0.70-1.30); MAGNESIUM 2.1 mg/dL (2.0-2.9); POTASSIUM 4.1 mmol/L (3.5-5.1)
[2024-10-18 19:07] LABS: BASOPHILS % (AUTO) 0.4 % (0.2-1.0); EOSINOPHILS % (AUTO) 1.2 % (0.9-2.9); HEMATOCRIT 46.1 % (42.0-54.0); MEAN CORPUSCULAR HEMOGLOBIN 24.7 pg (27.0-34.0); MEAN CORPUSCULAR HGB CONC 31.1 g/dL (33.0-35.0); MEAN CORPUSCULAR VOLUME 79.5 fL (80.0-100.0); MEAN PLATELET VOLUME 7.4 fL (7.4-11.0); MONOCYTES # (AUTO) 2.5 x10^3/uL (0.3-0.8); MONOCYTES % (AUTO) 7.7 % (0.0-13.0); NEUTROPHILS % (AUTO) 87.7 % (42.0-75.0); PLATELET COUNT 298 X10^3/uL (150.0-450.0); RED CELL DISTRIBUTION WIDTH 23.8 % (11.6-16.5)
[2024-10-18] MEDS: LASIX IVP ONE (19:30)
[2024-10-18 19:32] LABS: ANISOCYTOSIS 2+; PLATELET MORPHOLOGY COMMENT NORMAL (NORMAL); TEAR DROP CELLS 1+
[2024-10-18 19:33] LABS: BURR CELLS 1+
[2024-10-18] MEDS: PULMICORT NEB TX 0.5 MG NEB SCH (20:51)
[2024-10-18] MEDS: PROTONIX INJ 40 MG VIAL IVP SCH (21:45)
[2024-10-18] MEDS ORDERED: LASIX IVP ONE (21:46)
[2024-10-18] MEDS: FLAGYL IV PREMIX 500 MG BAG 500 MG/100 ML BAG IV SCH (22:46)
[2024-10-18] MEDS: MAG-OX TAB PO SCH (22:57)
[2024-10-18] MEDS: ANCEF VIAL 1 GRAM IVP SCH (23:50)
[2024-10-19 05:18] LABS: BASOPHILS # (AUTO) 0.1 X10^3/uL (0.0-0.1); BASOPHILS % (AUTO) 0.3 % (0.2-1.0); EOSINOPHILS # (AUTO) 0.1 x10^3/uL (0.0-0.2); EOSINOPHILS % (AUTO) 0.3 % (0.9-2.9); HEMOGLOBIN 14.9 g/dL (13.5-18.0); LYMPHOCYTES # (AUTO) 0.5 X10^3/uL (1.3-2.9); LYMPHOCYTES % (AUTO) 1.6 % (21.0-51.0); MEAN CORPUSCULAR HEMOGLOBIN 24.8 pg (27.0-34.0); MEAN CORPUSCULAR HGB CONC 31.7 g/dL (33.0-35.0); MEAN CORPUSCULAR VOLUME 78.5 fL (80.0-100.0); MEAN PLATELET VOLUME 7.1 fL (7.4-11.0); MONOCYTES # (AUTO) 1.6 x10^3/uL (0.3-0.8); MONOCYTES % (AUTO) 5.5 % (0.0-13.0); NEUTROPHILS # (AUTO) 27.3 x10^3/uL (2.2-4.8); NEUTROPHILS % (AUTO) 92.3 % (42.0-75.0); PLATELET COUNT 265 X10^3/uL (150.0-450.0); RED BLOOD COUNT 5.98 X10^6/uL (4.7-6.0); RED CELL DISTRIBUTION WIDTH 23.5 % (11.6-16.5); WHITE BLOOD COUNT 29.6 X10^3/uL (3.6-10.0)
[2024-10-19 05:49] LABS: ALBUMIN 1.3 g/dL (3.4-5.0); CALCIUM 8.4 mg/dL (8.5-10.1); CARBON DIOXIDE 19.5 mmol/L (21-32); COR CA(FOR HYPOALB) 10.6 mg/dL (8.5-10.1); CREATININE 2.79 mg/dL (0.70-1.30); PHOSPHORUS 4.2 mg/dL (2.6-4.7); POTASSIUM 3.9 mmol/L (3.5-5.1); TOTAL PROTEIN 4.4 g/dL (6.4-8.2)
[2024-10-19 06:00] LABS: INR 1.36 (0.8-1.3)
[2024-10-19 06:38] LABS: ANISOCYTOSIS 2+; HYPOCHROMASIA SLIGHT; MICROCYTOSIS SLIGHT; PLATELET MORPHOLOGY COMMENT NORMAL (NORMAL)
[2024-10-19 06:45] LABS: BAND NEUTROPHILS % 1 % (0-10)
[2024-10-19 06:46] LABS: BURR CELLS PRESENT
--- NOTE | 2024-10-19 09:09 | DR.PROGNOT ---
HOSPITAL PROGRESS NOTE Progress Note for Day of: Progress Note Date: 10/19/24 Chief Complaint Chief Complaint: a/p RT colectomy for colon ca and abscess drainage day 1. still having cardiac issues with hypotension , tachycardia , PVC's .. episodes of V tach . mild drainage in [place] . poor urine output .normal lytes , Hgb 14 .. Past Medical Family Social History Past Med/Fam/Surg Hx: No changes since H&P Allergies: Allergies No Known Drug Allergies Allergy (Verified 10/11/24 21:07) Review Of Systems ROS: No change since H&P Vital Signs Vital Signs: Vital Signs Pulse Rate 115 Pulse Rate 114 Pulse Rate 116 Pulse Rate 117 Pulse Rate 116 Pulse Rate 122 Pulse Rate 107 Pulse Rate 113 Pulse Rate 121 Pulse Rate 119 Pulse Rate 126 Pulse Rate 125 Pulse Rate 116 Pulse Rate 122 Pulse Rate 115 Pulse Rate 119 Pulse Rate 116 Pulse Rate 109 Pulse Rate 107 Pulse Rate 107 Pulse Rate 107 Pulse Rate 105 Pulse Rate 107 Pulse Rate 106 Pulse Rate 101 Pulse Rate 98 Pulse Rate 95 Pulse Rate 91 Pulse Rate 94 Pulse Rate 101 Pulse Rate 103 Pulse Rate 95 Pulse Rate 93 Pulse Rate 100 Pulse Rate 98 Respiratory Rate 22 Respiratory Rate 20 Respiratory Rate 28 Respiratory Rate 27 Respiratory Rate 50 Respiratory Rate 43 Respiratory Rate 21 Respiratory Rate 22 Respiratory Rate 21 Respiratory Rate 21 Respiratory Rate 20 Respiratory Rate 22 Respiratory Rate 21 Respiratory Rate 20 Respiratory Rate 22 Respiratory Rate 21 Respiratory Rate 24 Respiratory Rate 32 Respiratory Rate 33 Respiratory Rate 31 Respiratory Rate 30 Respiratory Rate 29 Respiratory Rate 29 Respiratory Rate 29 Respiratory Rate 29 Respiratory Rate 30 Respiratory Rate 25 Respiratory Rate 24 Respiratory Rate 23 Respiratory Rate 23 Respiratory Rate 23 Respiratory Rate 29 Respiratory Rate 24 Respiratory Rate 23 Respiratory Rate 24 Respiratory Rate 22 Blood Pressure 110/57 Blood Pressure 122/88 Blood Pressure 118/62 Blood Pressure 118/62 Blood Pressure 118/62 Blood Pressure 125/63 Blood Pressure 106/54 Blood Pressure 106/54 Blood Pressure 126/55 Blood Pressure 128/62 Blood Pressure 129/63 Blood Pressure 110/56 Blood Pressure 103/54 Blood Pressure 122/56 Blood Pressure 109/55 Blood Pressure 115/57 O2 Sat by Pulse Oximetry 100 O2 Sat by Pulse Oximetry 100 O2 Sat by Pulse Oximetry 99 O2 Sat by Pulse Oximetry 99 O2 Sat by Pulse Oximetry 99 O2 Sat by Pulse Oximetry 100 O2 Sat by Pulse Oximetry 100 O2 Sat by Pulse Oximetry 99 O2 Sat by Pulse Oximetry 99 O2 Sat by Pulse Oximetry 99 O2 Sat by Pulse Oximetry 99 O2 Sat by Pulse Oximetry 98 O2 Sat by Pulse Oximetry 99 O2 Sat by Pulse Oximetry 100 O2 Sat by Pulse Oximetry 99 O2 Sat by Pulse Oximetry 100 O2 Sat by Pulse Oximetry 100 O2 Sat by Pulse Oximetry 100 O2 Sat by Pulse Oximetry 98 O2 Sat by Pulse Oximetry 100 O2 Sat by Pulse Oximetry 99 O2 Sat by Pulse Oximetry 100 O2 Sat by Pulse Oximetry 100 O2 Sat by Pulse Oximetry 100 O2 Sat by Pulse Oximetry 100 O2 Sat by Pulse Oximetry 100 O2 Sat by Pulse Oximetry 100 O2 Sat by Pulse Oximetry 100 O2 Sat by Pulse Oximetry 100 O2 Sat by Pulse Oximetry 100 O2 Sat by Pulse Oximetry 100 O2 Sat by Pulse Oximetry 100 O2 Sat by Pulse Oximetry 100 O2 Sat by Pulse Oximetry 100 O2 Sat by Pulse Oximetry 100 Physical Exam Oriented: Normal Eyes: Normal Ear: Normal Nose: Normal Throat: Normal Respiratory: Normal Cardiovascular: Other (hypotension , A Fif with cardiac dysrhythmias supported with medication ,Amiodaron and Levophed.) GI:Auscultation: Decreased Mood Description: Calm Speech Pattern: Clear Laboratory and Diagnostics 10/19/24 04:03 10/19/24 04:03 Labs: 10/15/24 11:45 Urine,Catheterized Urine Culture - Final Pseudomonas Aeruginosa Laboratory WBC 29.6 X10^3/uL (3.6-10.0) H 10/19/24 04:03 RBC 5.98 X10^6/uL (4.7-6.0) 10/19/24 04:03 Hgb 14.9 g/dL (13.5-18.0) 10/19/24 04:03 Hct 47.0 % (42.0-54.0) 10/19/24 04:03 MCV 78.5 fL (80.0-100.0) L 10/19/24 04:03 MCH 24.8 pg (27.0-34.0) L 10/19/24 04:03 MCHC 31.7 g/dL (33.0-35.0) L 10/19/24 04:03 RDW 23.5 % (11.6-16.5) H 10/19/24 04:03 Plt Count 265 X10^3/uL (150.0-450.0) 10/19/24 04:03 Plt Count Comment Adequate (ADEQUATE) 10/19/24 04:03 MPV 7.1 fL (7.4-11.0) L 10/19/24 04:03 Neut % (Auto) 92.3 % (42.0-75.0) H 10/19/24 04:03 Lymph % (Auto) 1.6 % (21.0-51.0) L 10/19/24 04:03 Thomas % (Auto) 5.5 % (0.0-13.0) 10/19/24 04:03 Eos % (Auto) 0.3 % (0.9-2.9) L 10/19/24 04:03 Baso % (Auto) 0.3 % (0.2-1.0) 10/19/24 04:03 Neut # (Auto) 27.3 x10^3/uL (2.2-4.8) H 10/19/24 04:03 Lymph # (Auto) 0.5 X10^3/uL (1.3-2.9) L 10/19/24 04:03 Thomas # (Auto) 1.6 x10^3/uL (0.3-0.8) H 10/19/24 04:03 Eos # (Auto) 0.1 x10^3/uL (0.0-0.2) 10/19/24 04:03 Baso # (Auto) 0.1 X10^3/uL (0.0-0.1) 10/19/24 04:03 Absolute Nucleated RBC 0.0 /100WBC 10/19/24 04:03 Total Counted 100 10/19/24 04:03 Neutrophils % (Manual) 92 % (39-76) H 10/19/24 04:03 Band Neutrophils % 1 % (0-10) 10/19/24 04:03 Lymphocytes % (Manual) 2 % (13-43) L 10/19/24 04:03 Monocytes % (Manual) 5 % (4-9) 10/19/24 04:03 Plt Morphology Comment Normal (NORMAL) 10/19/24 04:03 RBC Morphology Abnormal (NORMAL) 10/19/24 04:03 Hypochromasia Slight A 10/19/24 04:03 Anisocytosis 2+ A 10/19/24 04:03 Microcytosis Slight A 10/19/24 04:03 Target Cells Slight A 10/18/24 15:43 Tear Drop Cells 1+ A 10/18/24 18:40 Ovalocytes Slight A 10/18/24 15:43 [place] Cells Present 10/19/24 04:03 PT 16.5 SECONDS (11.8-14.3) 10/19/24 04:03 INR Target Range - 10/19/24 04:03 INR 1.36 (0.8-1.3) H 10/19/24 04:03 APTT 43.9 SECONDS (22.9-36.5) H 10/12/24 07:55 PTT Comment - 10/12/24 07:55 Sodium 136 mmol/L (136-145) 10/19/24 04:03 Corrected Sodium 140 mmol/L (136-145) 10/19/24 04:03 Potassium 3.9 mmol/L (3.5-5.1) 10/19/24 04:03 Chloride 105 mmol/L (98-107) 10/19/24 04:03 Carbon Dioxide 19.5 mmol/L (21-32) L 10/19/24 04:03 BUN 46 mg/dL (7-18) H 10/19/24 04:03 Creatinine 2.79 mg/dL (0.70-1.30) H 10/19/24 04:03 Est GFR (MDRD) Af Amer 28 (>60) L 10/19/24 04:03 Est GFR (MDRD) Non-Af 23 (>60) L 10/19/24 04:03 Glucose 251 mg/dL (65-99) H 10/19/24 04:03 POC Glucose (mg/dL) 215 mg/dL (65-99) H 10/19/24 02:55 Calcium 8.4 mg/dL (8.5-10.1) L 10/19/24 04:03 Corrected Calcium 10.6 mg/dL (8.5-10.1) H 10/19/24 04:03 Phosphorus 4.2 mg/dL (2.6-4.7) 10/19/24 04:03 Magnesium 2.0 mg/dL (2.0-2.9) 10/19/24 04:03 Ferritin 47 ng/mL (26-388) 10/12/24 07:55 Total Bilirubin 1.30 mg/dL (0.2-1.0) H 10/19/24 04:03 AST 47 Units/L (15-37) H 10/19/24 04:03 ALT 25 Units/L (12-78) 10/19/24 04:03 Alkaline Phosphatase 107 Units/L (46-116) 10/19/24 04:03 Total Protein 4.4 g/dL (6.4-8.2) L 10/19/24 04:03 Albumin 1.3 g/dL (3.4-5.0) L 10/19/24 04:03 Globulin 3.1 g/dL (2.5-4.5) 10/19/24 04:03 Albumin/Globulin Ratio 0.4 Ratio (1.1-2.1) L 10/19/24 04:03 Prealbumin 6.0 mg/dL (18-35.7) L 10/19/24 04:03 Triglycerides 109 mg/dL (0-150) 10/19/24 04:03 Lipase 33 Units/L (16-77) 10/11/24 21:25 Specimen Type Catherized urine 10/18/24 15:49 Urine Color Yellow (YELLOW) 10/18/24 15:49 Urine Appearance Cloudy (CLEAR) 10/18/24 15:49 Urine pH 5.0 (5.0 - 8.0) 10/18/24 15:49 Ur Specific [place] 1.020 (1.000-1.030) 10/18/24 15:49 Urine Protein 3+ (NEGATIVE) 10/18/24 15:49 Urine Glucose (UA) Negative (NEGATIVE) 10/18/24 15:49 Urine Ketones Negative (NEGATIVE) 10/18/24 15:49 Urine Blood 5+ (NEGATIVE) 10/18/24 15:49 Urine Nitrite Negative (NEGATIVE) 10/18/24 15:49 Urine Bilirubin Negative (NEGATIVE) 10/18/24 15:49 Urine Urobilinogen Normal (NORMAL) 10/18/24 15:49 Ur Leukocyte Esterase 3+ (NEGATIVE) 10/18/24 15:49 Urine RBC Tntc /HPF (0-3) A 10/18/24 15:49 Urine WBC Tntc /HPF (0-5) A 10/18/24 15:49 Ur Squamous Epith Cells Rare /HPF (NEGATIVE) 10/18/24 15:49 Amorphous Sediment 3+ /HPF (NEGATIVE) 10/18/24 15:49 Urine Bacteria 2+ /HPF (NEGATIVE) 10/18/24 15:49 Ur Culture Indicated? Yes/culture set up 10/18/24 15:49 Stl Occult Blood (IFOB) Positive (NEGATIVE) A 10/12/24 13:00 Blood Type B POSITIVE 10/17/24 14:14 Antibody Screen Negative 10/17/24 14:14 Crossmatch See Detail 10/17/24 14:14 Assessment and Plan 1: colon cancer .s/p resection . surgical caicedo Pt is stable . 2: A Fib with dysrhythmias , on medications as mentioned above .. 3: CKD. d/w family in details about all these risk factors.. same plan .. Problem Patient Problems: Patient Problems Anemia (Acute) D64.9 Stage 5 chronic kidney disease (Acute) N18.5 Abdominal pain (Acute) R10.9 Bedbound (Acute) Z74.01 Long-term (current) use of anticoagulants, INR goal 2.0-3.0 (Acute) Z79.01
[2024-10-19] MEDS: ALBUMIN HUMAN 25%- 100 ML 100 ML IV SCH (10:55)
[2024-10-19] MEDS: LOVENOX INJ 30 MG SYR SC SCH (10:56)
--- NOTE | 2024-10-19 11:35 | DR.UPDATE ---
H&P Update Prescription drug monitoring program results: PDMP was not reviewed H&P Reviewed: Yes Any changes to H&P?: No Patient was examined?: Yes Vital Signs: Temp Pulse Pulse Resp BP BP BP 10/19/24 08:24 104 H 10/19/24 08:24 21 10/19/24 09:14 98.0 F 10/19/24 08:00 110/57 10/19/24 08:00 115 H 22 10/19/24 07:45 114 H 20 10/19/24 07:30 122/88 10/19/24 07:30 116 H 28 H 10/19/24 07:15 117 H 27 H 10/19/24 07:00 118/62 10/19/24 07:00 118/62 10/19/24 07:00 118/62 10/19/24 07:00 116 H 50 H 10/19/24 06:51 122 H 43 H 10/19/24 06:51 125/63 10/19/24 06:45 107 H 21 10/19/24 06:30 113 H 22 10/19/24 06:15 121 H 21 10/19/24 06:00 119 H 21 10/19/24 05:52 106/54 10/19/24 05:52 106/54 10/19/24 05:52 125 H 20 10/19/24 05:45 116 H 22 10/19/24 05:30 122 H 21 10/19/24 05:15 115 H 22 10/19/24 05:00 119 H 21 10/19/24 04:45 116 H 32 H 10/19/24 04:30 109 H 33 H 10/19/24 04:15 107 H 31 H 10/19/24 04:06 107 H 30 H 10/19/24 04:06 126/55 10/19/24 04:00 107 H 29 H 10/19/24 03:45 105 H 29 H 10/19/24 03:30 107 H 29 H 10/19/24 03:30 128/62 10/19/24 03:15 106 H 29 H 10/19/24 03:00 101 H 30 H 10/19/24 03:00 129/63 10/19/24 02:45 98 H 25 H 10/19/24 02:30 95 H 24 10/19/24 02:30 110/56 10/19/24 02:15 91 H 23 10/19/24 02:01 94 H 23 10/19/24 02:01 103/54 10/19/24 02:00 101 H 23 10/19/24 01:45 103 H 29 H 10/19/24 01:30 95 H 24 10/19/24 01:30 122/56 10/19/24 01:15 93 H 23 10/19/24 01:01 109/55 10/19/24 01:01 100 H 24 10/19/24 01:00 98 H 22 10/19/24 01:00 115/57 10/19/24 05:58 126 H 10/19/24 05:23 20 10/19/24 04:53 24 10/19/24 00:30 99 H 21 94/51 10/19/24 00:00 94 H 23 113/58 10/18/24 23:30 96 H 21 110/51 10/18/24 23:00 96 H 20 109/58 10/18/24 22:30 104 H 22 105/54 10/18/24 22:00 100 H 19 108/63 10/18/24 21:30 93 H 19 104/59 10/18/24 21:10 91 H 19 105/51 10/18/24 20:30 88 18 101/50 10/18/24 20:00 77 21 100/51 10/18/24 19:30 80 20 101/57 10/18/24 19:00 92 H 18 109/54 10/18/24 23:55 97 H 10/18/24 20:50 89 10/18/24 20:50 17 10/18/24 06:00 10/18/24 19:00 10/18/24 16:53 34 H 10/18/24 17:30 101 H 21 10/18/24 17:27 95 H 20 10/18/24 17:27 73/50 10/18/24 17:23 72/49 10/18/24 17:23 96 H 18 10/18/24 17:19 108 H 18 10/18/24 17:19 61/37 10/18/24 17:15 108 H 17 10/18/24 17:15 60/33 10/18/24 17:10 53/34 10/18/24 17:10 100 H 16 10/18/24 17:04 48/30 10/18/24 17:04 111 H 15 10/18/24 17:00 46/28 10/18/24 17:00 112 H 18 10/18/24 16:45 82/45 10/18/24 16:45 124 H 21 10/18/24 16:37 108 H 10/18/24 16:30 18 10/18/24 16:32 70/35 10/18/24 16:32 108 H 22 10/18/24 16:30 63/35 10/18/24 16:30 113 H 17 10/18/24 16:25 115 H 34 H 10/18/24 16:25 87/48 10/18/24 16:18 79/43 10/18/24 16:18 114 H 36 H 10/18/24 16:15 83/47 10/18/24 16:15 115 H 35 H 10/18/24 16:23 34 H 10/18/24 16:00 102 H 33 H 10/18/24 16:00 93/52 10/18/24 15:47 110 H 33 H 10/18/24 15:47 93/49 10/18/24 15:46 109 H 34 H 10/18/24 15:26 106 H 16 92/54 10/18/24 15:15 10/18/24 15:06 124 H 16 94/53 10/18/24 15:01 106 H 16 92/54 10/18/24 14:51 121 H 16 94/48 10/18/24 14:46 104 H 16 88/44 10/18/24 14:41 117 H 16 102/47 10/18/24 14:36 98.7 F 111 H 16 123/60 10/18/24 11:56 109 H 18 116/56 10/18/24 11:48 98 H 18 94/50 10/18/24 11:45 102 H 18 107/63 10/18/24 11:35 107 H 20 92/58 10/18/24 11:30 114 H 20 105/57 10/18/24 11:23 117 H 20 96/53 10/18/24 11:20 129 H 20 117/60 10/18/24 11:15 126 H 20 115/62 10/18/24 11:10 131 H 20 123/60 10/18/24 11:05 127 H 20 93/57 10/18/24 11:00 124 H 20 101/53 10/18/24 08:00 98.4 F 122 H 21 127/59 10/18/24 09:45 10/18/24 08:52 10/18/24 08:45 18 10/18/24 07:58 20 10/18/24 04:00 97.6 F 84 20 144/68 10/18/24 00:00 100.3 F H 94 H 16 121/57 10/17/24 22:52 22 10/17/24 19:00 10/17/24 21:52 21 10/17/24 20:00 99.8 F H 87 20 116/58 10/17/24 20:00 10/17/24 16:00 99.9 F H 100 H 19 136/55 10/17/24 12:00 99.0 F 79 19 112/55 10/17/24 12:00 99.0 F 79 19 112/55 10/17/24 09:20 10/17/24 07:00 10/17/24 08:00 98.2 F 102 H 19 109/55 10/17/24 04:00 97.9 F 84 19 117/57 10/17/24 00:00 97.9 F 83 19 97/55 10/16/24 22:26 19 10/16/24 19:00 10/16/24 21:26 18 10/16/24 19:51 98.1 F 77 19 113/54 10/16/24 19:05 83 10/16/24 19:05 10/16/24 16:00 98.5 F 105 H 18 112/54 Pulse Ox O2 Del Method O2 Flow Rate FiO2 10/19/24 08:24 100 10/19/24 08:24 Heated High Flow NC 51 10/19/24 09:14 10/19/24 08:00 10/19/24 08:00 100 10/19/24 07:45 100 10/19/24 07:30 10/19/24 07:30 99 10/19/24 07:15 99 10/19/24 07:00 10/19/24 07:00 10/19/24 07:00 10/19/24 07:00 99 10/19/24 06:51 100 10/19/24 06:51 10/19/24 06:45 100 10/19/24 06:30 99 10/19/24 06:15 99 10/19/24 06:00 99 10/19/24 05:52 10/19/24 05:52 10/19/24 05:52 98 10/19/24 05:45 99 10/19/24 05:30 100 10/19/24 05:15 99 10/19/24 05:00 100 10/19/24 04:45 100 10/19/24 04:30 100 10/19/24 04:15 98 10/19/24 04:06 100 10/19/24 04:06 10/19/24 04:00 99 10/19/24 03:45 100 10/19/24 03:30 100 10/19/24 03:30 10/19/24 03:15 100 10/19/24 03:00 100 10/19/24 03:00 10/19/24 02:45 100 10/19/24 02:30 100 10/19/24 02:30 10/19/24 02:15 100 10/19/24 02:01 100 10/19/24 02:01 10/19/24 02:00 100 10/19/24 01:45 100 10/19/24 01:30 100 10/19/24 01:30 10/19/24 01:15 100 10/19/24 01:01 10/19/24 01:01 100 10/19/24 01:00 100 10/19/24 01:00 10/19/24 05:58 99 10/19/24 05:23 10/19/24 04:53 10/19/24 00:30 100 Heated High Flow NC 10/19/24 00:00 100 Heated High Flow NC 10/18/24 23:30 100 Heated High Flow NC 10/18/24 23:00 100 Heated High Flow NC 10/18/24 22:30 100 Heated High Flow NC 10/18/24 22:00 100 Heated High Flow NC 10/18/24 21:30 100 Heated High Flow NC 10/18/24 21:10 100 Heated High Flow NC 10/18/24 20:30 96 Heated High Flow NC 10/18/24 20:00 100 Heated High Flow NC 10/18/24 19:30 99 Heated High Flow NC 10/18/24 19:00 100 Heated High Flow NC 10/18/24 23:55 100 10/18/24 20:50 100 10/18/24 20:50 Heated High Flow NC 15 50 10/18/24 06:00 Nasal Cannula 2 28 10/18/24 19:00 Heated High Flow NC 50 10/18/24 16:53 10/18/24 17:30 96 10/18/24 17:27 96 10/18/24 17:27 10/18/24 17:23 10/18/24 17:23 94 L 10/18/24 17:19 96 10/18/24 17:19 10/18/24 17:15 100 10/18/24 17:15 10/18/24 17:10 10/18/24 17:10 98 10/18/24 17:04 10/18/24 17:04 97 10/18/24 17:00 10/18/24 17:00 97 10/18/24 16:45 10/18/24 16:45 99 10/18/24 16:37 90 L 10/18/24 16:30 Heated High Flow NC 50 10/18/24 16:32 10/18/24 16:32 90 L 10/18/24 16:30 10/18/24 16:30 90 L 10/18/24 16:25 93 L 10/18/24 16:25 10/18/24 16:18 10/18/24 16:18 93 L 10/18/24 16:15 10/18/24 16:15 96 10/18/24 16:23 10/18/24 16:00 94 L 10/18/24 16:00 10/18/24 15:47 95 10/18/24 15:47 10/18/24 15:46 94 L 10/18/24 15:26 92 L Nasal Cannula 3 10/18/24 15:15 Nasal Cannula 3 32 10/18/24 15:06 93 L Nasal Cannula 10/18/24 15:01 91 L Nasal Cannula 10/18/24 14:51 95 Aerosol Face Tent 10/18/24 14:46 92 L Aerosol Face Tent 10/18/24 14:41 93 L Aerosol Face Tent 10/18/24 14:36 95 Aerosol Face Tent 10/18/24 11:56 99 Nasal Cannula 10/18/24 11:48 99 Nasal Cannula 10/18/24 11:45 99 Nasal Cannula 10/18/24 11:35 99 Nasal Cannula 10/18/24 11:30 99 Nasal Cannula 10/18/24 11:23 99 Nasal Cannula 10/18/24 11:20 98 Nasal Cannula 10/18/24 11:15 98 Nasal Cannula 10/18/24 11:10 97 Nasal Cannula 10/18/24 11:05 97 Nasal Cannula 10/18/24 11:00 97 Nasal Cannula 10/18/24 08:00 98 Nasal Cannula 2 10/18/24 09:45 Nasal Cannula 2 10/18/24 08:52 Nasal Cannula 2 28 10/18/24 08:45 10/18/24 07:58 10/18/24 04:00 98 Nasal Cannula 2 10/18/24 00:00 95 Nasal Cannula 2 10/17/24 22:52 10/17/24 19:00 Nasal Cannula 2 10/17/24 21:52 10/17/24 20:00 98 Nasal Cannula 2 10/17/24 20:00 Nasal Cannula 2 28 10/17/24 16:00 98 Nasal Cannula 2 10/17/24 12:00 94 L Nasal Cannula 2 10/17/24 12:00 97 Nasal Cannula 2 10/17/24 09:20 Nasal Cannula 2 28 10/17/24 07:00 Nasal Cannula 2 10/17/24 08:00 97 Nasal Cannula 2 10/17/24 04:00 97 Nasal Cannula 2 10/17/24 00:00 93 L Nasal Cannula 2 10/16/24 22:26 10/16/24 19:00 Nasal Cannula 2 10/16/24 21:26 10/16/24 19:51 100 Nasal Cannula 2 10/16/24 19:05 97 10/16/24 19:05 Nasal Cannula 2 28 10/16/24 16:00 98 Nasal Cannula 2 Procedures (ALL) - Arterial Line Consent obtained: written consent Time out performed: Yes Size(gauge): 20 Technique used: guided wire technique Post-procedure: dry sterile dressing placed Patient tolerated procedure: Yes Site: right, radial
[2024-10-19] MEDS ORDERED: NEXTERONE IV 360 MG PREMIX* 360 MG/200 ML BAG IV ONE (16:58)
[2024-10-19] MEDS: NEXTERONE IV 360 MG PREMIX* 360 MG/200 ML BAG IV PRN (17:44)
--- NOTE | 2024-10-19 17:57 | RAD ---
EXAM:CHESTHISTORY:CHF;COMPARISON: [email or web address] submitted for interpretation.FINDINGS:Left-sided cardiac pacer is stable. Right-sided central line is stable. Nasogastric tube projects over the stomach. The cardiomediastinal silhouette is within normal limits. Lungs show bilateral pleural effusions with bibasilar atelectasis.IMPRESSION:New nasogastric tube. Continued bilateral pleural effusions with bibasilar atelectasis.THIS IS AN ELECTRONICALLY VERIFIED FINAL REPORT10/19/2024 5:53 PM - Electronically signed by Lion Alcaraz MD
[2024-10-20 05:51] LABS: BASOPHILS % (AUTO) 0.2 % (0.2-1.0); EOSINOPHILS # (AUTO) 0.4 x10^3/uL (0.0-0.2); HEMATOCRIT 33.2 % (42.0-54.0); LYMPHOCYTES # (AUTO) 0.5 X10^3/uL (1.3-2.9); LYMPHOCYTES % (AUTO) 3.2 % (21.0-51.0); MEAN CORPUSCULAR HEMOGLOBIN 25.2 pg (27.0-34.0); MEAN CORPUSCULAR VOLUME 76.4 fL (80.0-100.0); MEAN PLATELET VOLUME 6.8 fL (7.4-11.0); MONOCYTES # (AUTO) 0.8 x10^3/uL (0.3-0.8); MONOCYTES % (AUTO) 5.6 % (0.0-13.0); NEUTROPHILS # (AUTO) 12.9 x10^3/uL (2.2-4.8); PLATELET COUNT 169 X10^3/uL (150.0-450.0); RED BLOOD COUNT 4.35 X10^6/uL (4.7-6.0); WHITE BLOOD COUNT 14.6 X10^3/uL (3.6-10.0)
[2024-10-20 07:18] LABS: ANISOCYTOSIS 2+; PLATELET MORPHOLOGY COMMENT NORMAL (NORMAL)
[2024-10-20] MEDS: DILAUDID INJ IVP PRN (08:01)
[2024-10-20 08:44] LABS: ALBUMIN 1.5 g/dL (3.4-5.0); CALCIUM 8.6 mg/dL (8.5-10.1); CARBON DIOXIDE 17.3 mmol/L (21-32); COR CA(FOR HYPOALB) 10.6 mg/dL (8.5-10.1); CREATININE 3.15 mg/dL (0.70-1.30); MAGNESIUM 1.7 mg/dL (2.0-2.9); POTASSIUM 3.3 mmol/L (3.5-5.1); TOTAL PROTEIN 4.3 g/dL (6.4-8.2)
[2024-10-20] MEDS: ANCEF VIAL 1 GRAM 1 G in NS 100 ML IV 100 ML IV SCH (09:06)
--- NOTE | 2024-10-20 09:58 | DR.PROGNOT ---
HOSPITAL PROGRESS NOTE Progress Note for Day of: Progress Note Date: 10/20/24 Chief Complaint Chief Complaint: a/p RT colectomy for colon ca and abscess drainage day 2. still having cardiac issues with hypotension , tachycardia , PVC's .. mild drainage in [place] . poor urine output .normal lytes , Hgb 11 ..BUN50.. Creat3.1. Albumin 1.5. WBC 14.6. INR 1.9 Past Medical Family Social History Past Med/Fam/Surg Hx: No changes since H&P Allergies: Allergies No Known Drug Allergies Allergy (Verified 10/11/24 21:07) Review Of Systems ROS: No change since H&P Vital Signs Vital Signs: Vital Signs Temperature 98.2 F Temperature 98.2 F Pulse Rate 78 Pulse Rate 97 Pulse Rate 110 Pulse Rate 95 Pulse Rate 94 Pulse Rate 99 Pulse Rate 117 Pulse Rate 107 Pulse Rate 113 Pulse Rate 76 Pulse Rate 75 Pulse Rate 83 Pulse Rate 76 Pulse Rate 80 Pulse Rate 90 Pulse Rate 88 Pulse Rate 90 Pulse Rate 97 Pulse Rate 94 Pulse Rate 91 Pulse Rate 89 Pulse Rate 94 Respiratory Rate 21 Respiratory Rate 28 Respiratory Rate 16 Respiratory Rate 14 Respiratory Rate 17 Respiratory Rate 18 Respiratory Rate 22 Respiratory Rate 21 Respiratory Rate 20 Respiratory Rate 23 Respiratory Rate 26 Respiratory Rate 29 Respiratory Rate 27 Respiratory Rate 24 Respiratory Rate 18 Respiratory Rate 19 Respiratory Rate 18 Respiratory Rate 20 Respiratory Rate 22 Respiratory Rate 16 Respiratory Rate 17 Respiratory Rate 16 Blood Pressure 132/59 Blood Pressure 123/59 Blood Pressure 122/56 Blood Pressure 122/58 Blood Pressure 131/60 Blood Pressure 117/59 Blood Pressure 119/58 Blood Pressure 106/61 Blood Pressure 110/56 Blood Pressure 102/54 Blood Pressure 106/54 O2 Sat by Pulse Oximetry 100 O2 Sat by Pulse Oximetry 100 O2 Sat by Pulse Oximetry 98 O2 Sat by Pulse Oximetry 100 O2 Sat by Pulse Oximetry 100 O2 Sat by Pulse Oximetry 100 O2 Sat by Pulse Oximetry 100 O2 Sat by Pulse Oximetry 100 O2 Sat by Pulse Oximetry 100 O2 Sat by Pulse Oximetry 100 O2 Sat by Pulse Oximetry 99 O2 Sat by Pulse Oximetry 100 O2 Sat by Pulse Oximetry 99 O2 Sat by Pulse Oximetry 99 O2 Sat by Pulse Oximetry 100 O2 Sat by Pulse Oximetry 100 O2 Sat by Pulse Oximetry 100 O2 Sat by Pulse Oximetry 100 O2 Sat by Pulse Oximetry 99 O2 Sat by Pulse Oximetry 100 O2 Sat by Pulse Oximetry 100 O2 Sat by Pulse Oximetry 100 Physical Exam Oriented: Normal Eyes: Normal Ear: Normal Nose: Normal Throat: Normal Respiratory: Normal Cardiovascular: Other (hypotension , A Fif with cardiac dysrhythmias supported with medication ,Amiodaron and Levophed.) GI:Auscultation: Decreased GI: Tenderness: Other (full abdomen , soft BS-. mild tenderness ..) Mood Description: Calm Speech Pattern: Clear and Appropriate Laboratory and Diagnostics 10/20/24 04:59 10/20/24 04:59 Labs: 10/18/24 13:24 Abdomen Wound Gram Stain - Final 10/18/24 13:24 Abdomen Wound Culture - Preliminary 10/18/24 15:49 Urine,Catheterized Urine Culture - Preliminary 10/15/24 11:45 Urine,Catheterized Urine Culture - Final Pseudomonas Aeruginosa Laboratory WBC 14.6 X10^3/uL (3.6-10.0) H D 10/20/24 04:59 RBC 4.35 X10^6/uL (4.7-6.0) L 10/20/24 04:59 Hgb 11.0 g/dL (13.5-18.0) L D 10/20/24 04:59 Hct 33.2 % (42.0-54.0) L 10/20/24 04:59 MCV 76.4 fL (80.0-100.0) L 10/20/24 04:59 MCH 25.2 pg (27.0-34.0) L 10/20/24 04:59 MCHC 33.0 g/dL (33.0-35.0) 10/20/24 04:59 RDW 24.0 % (11.6-16.5) H 10/20/24 04:59 Plt Count 169 X10^3/uL (150.0-450.0) 10/20/24 04:59 Plt Count Comment Adequate (ADEQUATE) 10/20/24 04:59 MPV 6.8 fL (7.4-11.0) L 10/20/24 04:59 Neut % (Auto) 88.0 % (42.0-75.0) H 10/20/24 04:59 Lymph % (Auto) 3.2 % (21.0-51.0) L 10/20/24 04:59 [place] % (Auto) 5.6 % (0.0-13.0) 10/20/24 04:59 Eos % (Auto) 3.0 % (0.9-2.9) H 10/20/24 04:59 Baso % (Auto) 0.2 % (0.2-1.0) 10/20/24 04:59 Neut # (Auto) 12.9 x10^3/uL (2.2-4.8) H 10/20/24 04:59 Lymph # (Auto) 0.5 X10^3/uL (1.3-2.9) L 10/20/24 04:59 [place] # (Auto) 0.8 x10^3/uL (0.3-0.8) 10/20/24 04:59 Eos # (Auto) 0.4 x10^3/uL (0.0-0.2) H 10/20/24 04:59 Baso # (Auto) 0.0 X10^3/uL (0.0-0.1) 10/20/24 04:59 Absolute Nucleated RBC 0.0 /100WBC 10/20/24 04:59 Total Counted 100 10/19/24 04:03 Neutrophils % (Manual) 92 % (39-76) H 10/19/24 04:03 Band Neutrophils % 1 % (0-10) 10/19/24 04:03 Lymphocytes % (Manual) 2 % (13-43) L 10/19/24 04:03 Monocytes % (Manual) 5 % (4-9) 10/19/24 04:03 Plt Morphology Comment Normal (NORMAL) 10/20/24 04:59 RBC Morphology Abnormal (NORMAL) 10/20/24 04:59 Hypochromasia Slight A 10/19/24 04:03 Anisocytosis 2+ A 10/20/24 04:59 Microcytosis Slight A 10/19/24 04:03 Target Cells Slight A 10/18/24 15:43 Tear Drop Cells 1+ A 10/18/24 18:40 Ovalocytes Slight A 10/18/24 15:43 Yosef Cells Present 10/19/24 04:03 PT 21.2 SECONDS (11.8-14.3) 10/20/24 04:59 INR Target Range - 10/20/24 04:59 INR 1.90 (0.8-1.3) H 10/20/24 04:59 APTT 43.9 SECONDS (22.9-36.5) H 10/12/24 07:55 PTT Comment - 10/12/24 07:55 Sodium 136 mmol/L (136-145) 10/20/24 04:59 Corrected Sodium 138 mmol/L (136-145) 10/20/24 04:59 Potassium 3.3 mmol/L (3.5-5.1) L 10/20/24 04:59 Chloride 106 mmol/L (98-107) 10/20/24 04:59 Carbon Dioxide 17.3 mmol/L (21-32) L 10/20/24 04:59 BUN 50 mg/dL (7-18) H 10/20/24 04:59 Creatinine 3.15 mg/dL (0.70-1.30) H 10/20/24 04:59 Est GFR (MDRD) Af Amer 24 (>60) L 10/20/24 04:59 Est GFR (MDRD) Non-Af 20 (>60) L 10/20/24 04:59 Glucose 201 mg/dL (65-99) H 10/20/24 04:59 POC Glucose (mg/dL) 215 mg/dL (65-99) H 10/19/24 02:55 Calcium 8.6 mg/dL (8.5-10.1) 10/20/24 04:59 Corrected Calcium 10.6 mg/dL (8.5-10.1) H 10/20/24 04:59 Phosphorus 4.0 mg/dL (2.6-4.7) 10/20/24 04:59 Phosphorus Cancelled 10/20/24 04:59 Magnesium 1.7 mg/dL (2.0-2.9) L 10/20/24 04:59 Magnesium Cancelled 10/20/24 04:59 Ferritin 47 ng/mL (26-388) 10/12/24 07:55 Total Bilirubin 0.60 mg/dL (0.2-1.0) 10/20/24 04:59 AST 20 Units/L (15-37) 10/20/24 04:59 ALT 13 Units/L (12-78) 10/20/24 04:59 Alkaline Phosphatase 115 Units/L (46-116) 10/20/24 04:59 Total Protein 4.3 g/dL (6.4-8.2) L 10/20/24 04:59 Albumin 1.5 g/dL (3.4-5.0) L 10/20/24 04:59 Globulin 2.8 g/dL (2.5-4.5) 10/20/24 04:59 Albumin/Globulin Ratio 0.5 Ratio (1.1-2.1) L 10/20/24 04:59 Prealbumin 5.3 mg/dL (18-35.7) L 10/20/24 04:59 Triglycerides 79 mg/dL (0-150) 10/20/24 04:59 Triglycerides Cancelled 10/20/24 04:59 Lipase 33 Units/L (16-77) 10/11/24 21:25 Specimen Type Catherized urine 10/18/24 15:49 Urine Color Yellow (YELLOW) 10/18/24 15:49 Urine Appearance Cloudy (CLEAR) 10/18/24 15:49 Urine pH 5.0 (5.0 - 8.0) 10/18/24 15:49 Ur Specific [place] 1.020 (1.000-1.030) 10/18/24 15:49 Urine Protein 3+ (NEGATIVE) 10/18/24 15:49 Urine Glucose (UA) Negative (NEGATIVE) 10/18/24 15:49 Urine Ketones Negative (NEGATIVE) 10/18/24 15:49 Urine Blood 5+ (NEGATIVE) 10/18/24 15:49 Urine Nitrite Negative (NEGATIVE) 10/18/24 15:49 Urine Bilirubin Negative (NEGATIVE) 10/18/24 15:49 Urine Urobilinogen Normal (NORMAL) 10/18/24 15:49 Ur Leukocyte Esterase 3+ (NEGATIVE) 10/18/24 15:49 Urine RBC Tntc /HPF (0-3) A 10/18/24 15:49 Urine WBC Tntc /HPF (0-5) A 10/18/24 15:49 Ur Squamous Epith Cells Rare /HPF (NEGATIVE) 10/18/24 15:49 Amorphous Sediment 3+ /HPF (NEGATIVE) 10/18/24 15:49 Urine Bacteria 2+ /HPF (NEGATIVE) 10/18/24 15:49 Ur Culture Indicated? Yes/culture set up 10/18/24 15:49 Stl Occult Blood (IFOB) Positive (NEGATIVE) A 10/12/24 13:00 Blood Type B POSITIVE 10/17/24 14:14 Antibody Screen Negative 10/17/24 14:14 Crossmatch See Detail 10/17/24 14:14 Assessment and Plan 1: colon cancer, possible perforation and abscess .s/p resection . surgical caicedo Pt is stable . 2: A Fib with dysrhythmias , on medications as mentioned above .. 3: CKD. d/w family in details about all these risk factors.. same plan , TPN and medical care .. Problem Patient Problems: Patient Problems (Updated 10/17/24 @ 08:37 by LEE MITTAL MD) Anemia (Acute) D64.9 Stage 5 chronic kidney disease (Acute) N18.5 Abdominal pain (Acute) R10.9 Bedbound (Acute) Z74.01 Long-term (current) use of anticoagulants, INR goal 2.0-3.0 (Acute) Z79.01
--- NOTE | 2024-10-20 10:09 | NOTE.SOAP ---
Soap Note Note for Day of Date of Exam: 10/20/24 Subjective Data Subjective Data: c/o abd pain- still on pressors Objective Data Objective Data: bp 130 p 80-90 tele: afib/occ v paced lungs clear heart irreg irreg ext no edema- abd : tender no rebound labs: wbc 14- down from 32, cr up to 3.15, alb 1.5 k 3.3 inr up to 1.9 despite no coumadin, hct 32- down from 47 Assessment Assessment: post op/sepsis/afib/dropping hct/elevated inr /coagulopathy/worsening renal insufficiency Plan Plan: wean off pressors as bp allows- needs nutrition/vit k- watch hct- will cont amiodorone as npo- no bb while on presssors
[2024-10-20] MEDS: SOLU-Cortef INJ IVP SCH (11:36)
[2024-10-20] MEDS: THIAMINE HCL INJ IVP SCH (12:00)
[2024-10-20] MEDS: NS 250 ML IV 250 ML IV ONE (12:43)
[2024-10-20] MEDS: MAGNESIUM SULFATE 1 GRAM/100 mL PREMIX 1 G/100 ML BAG IV SCH ×2 (12:47→13:20)
[2024-10-20] MEDS: ASCORBIC ACID INJ MULTI-DOSE VIAL 1,500 MG in NS 50 ML IV 50 ML IV SCH ×2 (17:30→19:01)
[2024-10-20] MEDS: CORDARONE IV SCH (18:22)
[2024-10-20] MEDS: D5W IV SCH (18:22)
[2024-10-20] MEDS: D5W 250 ML IV 250 ML IV ONE (18:32)
[2024-10-20] MEDS: DRUG FILTER EXTENSION SET ONE (19:01)
[2024-10-20] MEDS: FLOMAX PO SCH (21:43)
[2024-10-20] MEDS: COUMADIN TAB 4 MG (JANTOVEN) PO SCH (21:44)
[2024-10-21] MEDS: CIPRO IV 400 MG PREMIX* 400 MG/200 ML IV.SOLN. IV SCH (00:07)
[2024-10-21 06:28] LABS: BASOPHILS % (AUTO) 0 % (0.2-1.0); EOSINOPHILS % (AUTO) 0.1 % (0.9-2.9); HEMATOCRIT 29.8 % (42.0-54.0); HEMOGLOBIN 9.8 g/dL (13.5-18.0); LYMPHOCYTES # (AUTO) 0.2 X10^3/uL (1.3-2.9); LYMPHOCYTES % (AUTO) 3.2 % (21.0-51.0); MEAN CORPUSCULAR HEMOGLOBIN 25.2 pg (27.0-34.0); MEAN CORPUSCULAR HGB CONC 32.9 g/dL (33.0-35.0); MEAN CORPUSCULAR VOLUME 76.6 fL (80.0-100.0); MEAN PLATELET VOLUME 7.1 fL (7.4-11.0); MONOCYTES # (AUTO) 0.3 x10^3/uL (0.3-0.8); MONOCYTES % (AUTO) 4.3 % (0.0-13.0); NEUTROPHILS # (AUTO) 6.1 x10^3/uL (2.2-4.8); NEUTROPHILS % (AUTO) 92.4 % (42.0-75.0); PLATELET COUNT 144 X10^3/uL (150.0-450.0); RED BLOOD COUNT 3.89 X10^6/uL (4.7-6.0); RED CELL DISTRIBUTION WIDTH 24.6 % (11.6-16.5); WHITE BLOOD COUNT 6.6 X10^3/uL (3.6-10.0)
[2024-10-21 07:00] LABS: ALBUMIN 1.6 g/dL (3.4-5.0); CALCIUM 8.9 mg/dL (8.5-10.1); CARBON DIOXIDE 18.1 mmol/L (21-32); COR CA(FOR HYPOALB) 10.8 mg/dL (8.5-10.1); CREATININE 3.28 mg/dL (0.70-1.30); MAGNESIUM 2.1 mg/dL (2.0-2.9); POTASSIUM 3.3 mmol/L (3.5-5.1); TOTAL PROTEIN 4.2 g/dL (6.4-8.2)
[2024-10-21 07:05] LABS: ANISOCYTOSIS 3+; BAND NEUTROPHILS % 3 % (0-10); MICROCYTOSIS SLIGHT; PLATELET MORPHOLOGY COMMENT NORMAL (NORMAL)
[2024-10-21 07:06] LABS: BURR CELLS 1+
[2024-10-21] MEDS: ALBUMIN HUMAN 25%- 100 ML 100 ML IV SCH (07:15)
--- NOTE | 2024-10-21 08:43 | DR.PROGNOT ---
HOSPITAL PROGRESS NOTE Progress Note for Day of: Progress Note Date: 10/21/24 Chief Complaint Chief Complaint: a/p RT colectomy for colon ca and abscess drainage day 3. off Levophed maintaining blood pressure above 120... mild drainage in [place] . poor urine output . WBC 6.6, Hgb 9.8, K 3.3, Ceat 3.2, BUN 51 , Past Medical Family Social History Past Med/Fam/Surg Hx: No changes since H&P Allergies: Allergies No Known Drug Allergies Allergy (Verified 10/11/24 21:07) Review Of Systems ROS: No change since H&P Vital Signs Vital Signs: Vital Signs Temperature 98.5 F Temperature 98.7 F Pulse Rate 85 Pulse Rate 88 Pulse Rate 89 Pulse Rate 83 Pulse Rate 90 Pulse Rate 87 Pulse Rate 90 Pulse Rate 100 Pulse Rate 93 Pulse Rate 79 Pulse Rate 97 Pulse Rate 94 Pulse Rate 96 Pulse Rate 91 Pulse Rate 81 Pulse Rate 89 Pulse Rate 94 Respiratory Rate 26 Respiratory Rate 26 Respiratory Rate 27 Respiratory Rate 21 Respiratory Rate 29 Respiratory Rate 26 Respiratory Rate 23 Respiratory Rate 25 Respiratory Rate 41 Respiratory Rate 15 Respiratory Rate 25 Respiratory Rate 15 Respiratory Rate 20 Respiratory Rate 18 Respiratory Rate 21 Respiratory Rate 24 Respiratory Rate 31 Respiratory Rate 24 Respiratory Rate 13 Blood Pressure 142/60 Blood Pressure 130/58 Blood Pressure 114/58 Blood Pressure 117/57 Blood Pressure 111/56 Blood Pressure 126/58 Blood Pressure 122/56 Blood Pressure 118/55 Blood Pressure 104/52 Blood Pressure 111/54 Blood Pressure 103/55 Blood Pressure 101/52 Blood Pressure 109/53 Blood Pressure 109/53 Blood Pressure 151/69 Blood Pressure 120/58 Blood Pressure 131/59 O2 Sat by Pulse Oximetry 98 O2 Sat by Pulse Oximetry 99 O2 Sat by Pulse Oximetry 99 O2 Sat by Pulse Oximetry 99 O2 Sat by Pulse Oximetry 98 O2 Sat by Pulse Oximetry 98 O2 Sat by Pulse Oximetry 99 O2 Sat by Pulse Oximetry 99 O2 Sat by Pulse Oximetry 99 O2 Sat by Pulse Oximetry 98 O2 Sat by Pulse Oximetry 98 O2 Sat by Pulse Oximetry 98 O2 Sat by Pulse Oximetry 98 O2 Sat by Pulse Oximetry 98 O2 Sat by Pulse Oximetry 98 O2 Sat by Pulse Oximetry 98 O2 Sat by Pulse Oximetry 98 Physical Exam Oriented: Normal Eyes: Normal Ear: Normal Nose: Normal Throat: Normal Respiratory: Normal Cardiovascular: Other (A-fib with occasional PVCs but blood pressure is stable.) GI:Auscultation: Decreased GI: Tenderness: Other (full abdomen , soft BS-. mild tenderness ..) Mood Description: Calm Speech Pattern: Clear and Appropriate Laboratory and Diagnostics 10/21/24 06:05 10/21/24 06:05 Labs: 10/18/24 13:24 Abdomen Wound Gram Stain - Final 10/18/24 13:24 Abdomen Wound Culture - Preliminary 10/18/24 15:49 Urine,Catheterized Urine Culture - Preliminary 10/15/24 11:45 Urine,Catheterized Urine Culture - Final Pseudomonas Aeruginosa Laboratory WBC 6.6 X10^3/uL (3.6-10.0) D 10/21/24 06:05 RBC 3.89 X10^6/uL (4.7-6.0) L 10/21/24 06:05 Hgb 9.8 g/dL (13.5-18.0) L 10/21/24 06:05 Hct 29.8 % (42.0-54.0) L 10/21/24 06:05 MCV 76.6 fL (80.0-100.0) L 10/21/24 06:05 MCH 25.2 pg (27.0-34.0) L 10/21/24 06:05 MCHC 32.9 g/dL (33.0-35.0) L 10/21/24 06:05 RDW 24.6 % (11.6-16.5) H 10/21/24 06:05 Plt Count 144 X10^3/uL (150.0-450.0) L 10/21/24 06:05 Plt Count Comment Decreased (ADEQUATE) 10/21/24 06:05 MPV 7.1 fL (7.4-11.0) L 10/21/24 06:05 Neut % (Auto) 92.4 % (42.0-75.0) H 10/21/24 06:05 Lymph % (Auto) 3.2 % (21.0-51.0) L 10/21/24 06:05 [place] % (Auto) 4.3 % (0.0-13.0) 10/21/24 06:05 Eos % (Auto) 0.1 % (0.9-2.9) L 10/21/24 06:05 Baso % (Auto) 0 % (0.2-1.0) L 10/21/24 06:05 Neut # (Auto) 6.1 x10^3/uL (2.2-4.8) H 10/21/24 06:05 Lymph # (Auto) 0.2 X10^3/uL (1.3-2.9) L 10/21/24 06:05 [place] # (Auto) 0.3 x10^3/uL (0.3-0.8) 10/21/24 06:05 Eos # (Auto) 0.0 x10^3/uL (0.0-0.2) 10/21/24 06:05 Baso # (Auto) 0.0 X10^3/uL (0.0-0.1) 10/21/24 06:05 Absolute Nucleated RBC 0.0 /100WBC 10/21/24 06:05 Total Counted 100 10/21/24 06:05 Neutrophils % (Manual) 94 % (39-76) H 10/21/24 06:05 Band Neutrophils % 3 % (0-10) 10/21/24 06:05 Lymphocytes % (Manual) 1 % (13-43) L 10/21/24 06:05 Monocytes % (Manual) 2 % (4-9) L 10/21/24 06:05 Plt Morphology Comment Normal (NORMAL) 10/21/24 06:05 RBC Morphology Abnormal (NORMAL) 10/21/24 06:05 Hypochromasia Slight A 10/19/24 04:03 Anisocytosis 3+ A 10/21/24 06:05 Microcytosis Slight A 10/21/24 06:05 Target Cells Slight A 10/18/24 15:43 Tear Drop Cells 1+ A 10/18/24 18:40 Ovalocytes Slight A 10/18/24 15:43 Yosef Cells 1+ A 10/21/24 06:05 PT 21.2 SECONDS (11.8-14.3) 10/20/24 04:59 INR Target Range - 10/20/24 04:59 INR 1.90 (0.8-1.3) H 10/20/24 04:59 APTT 43.9 SECONDS (22.9-36.5) H 10/12/24 07:55 PTT Comment - 10/12/24 07:55 Sodium 138 mmol/L (136-145) 10/21/24 06:05 Corrected Sodium 141 mmol/L (136-145) 10/21/24 06:05 Potassium 3.3 mmol/L (3.5-5.1) L 10/21/24 06:05 Chloride 108 mmol/L (98-107) H 10/21/24 06:05 Carbon Dioxide 18.1 mmol/L (21-32) L 10/21/24 06:05 BUN 51 mg/dL (7-18) H 10/21/24 06:05 Creatinine 3.28 mg/dL (0.70-1.30) H 10/21/24 06:05 Est GFR (MDRD) Af Amer 23 (>60) L 10/21/24 06:05 Est GFR (MDRD) Non-Af 19 (>60) L 10/21/24 06:05 Glucose 208 mg/dL (65-99) H 10/21/24 06:05 POC Glucose (mg/dL) 215 mg/dL (65-99) H 10/19/24 02:55 Calcium 8.9 mg/dL (8.5-10.1) 10/21/24 06:05 Corrected Calcium 10.8 mg/dL (8.5-10.1) H 10/21/24 06:05 Phosphorus 4.0 mg/dL (2.6-4.7) 10/20/24 04:59 Phosphorus Cancelled 10/20/24 04:59 Magnesium 2.1 mg/dL (2.0-2.9) 10/21/24 06:05 Ferritin 47 ng/mL (26-388) 10/12/24 07:55 Total Bilirubin 0.40 mg/dL (0.2-1.0) 10/21/24 06:05 AST 12 Units/L (15-37) L 10/21/24 06:05 ALT 9 Units/L (12-78) L 10/21/24 06:05 Alkaline Phosphatase 96 Units/L (46-116) 10/21/24 06:05 Total Protein 4.2 g/dL (6.4-8.2) L 10/21/24 06:05 Albumin 1.6 g/dL (3.4-5.0) L 10/21/24 06:05 Globulin 2.6 g/dL (2.5-4.5) 10/21/24 06:05 Albumin/Globulin Ratio 0.6 Ratio (1.1-2.1) L 10/21/24 06:05 Prealbumin 5.3 mg/dL (18-35.7) L 10/20/24 04:59 Triglycerides 79 mg/dL (0-150) 10/20/24 04:59 Triglycerides Cancelled 10/20/24 04:59 Lipase 33 Units/L (16-77) 10/11/24 21:25 Specimen Type Catherized urine 10/18/24 15:49 Urine Color Yellow (YELLOW) 10/18/24 15:49 Urine Appearance Cloudy (CLEAR) 10/18/24 15:49 Urine pH 5.0 (5.0 - 8.0) 10/18/24 15:49 Ur Specific [place] 1.020 (1.000-1.030) 10/18/24 15:49 Urine Protein 3+ (NEGATIVE) 10/18/24 15:49 Urine Glucose (UA) Negative (NEGATIVE) 10/18/24 15:49 Urine Ketones Negative (NEGATIVE) 10/18/24 15:49 Urine Blood 5+ (NEGATIVE) 10/18/24 15:49 Urine Nitrite Negative (NEGATIVE) 10/18/24 15:49 Urine Bilirubin Negative (NEGATIVE) 10/18/24 15:49 Urine Urobilinogen Normal (NORMAL) 10/18/24 15:49 Ur Leukocyte Esterase 3+ (NEGATIVE) 10/18/24 15:49 Urine RBC Tntc /HPF (0-3) A 10/18/24 15:49 Urine WBC Tntc /HPF (0-5) A 10/18/24 15:49 Ur Squamous Epith Cells Rare /HPF (NEGATIVE) 10/18/24 15:49 Amorphous Sediment 3+ /HPF (NEGATIVE) 10/18/24 15:49 Urine Bacteria 2+ /HPF (NEGATIVE) 10/18/24 15:49 Ur Culture Indicated? Yes/culture set up 10/18/24 15:49 Stl Occult Blood (IFOB) Positive (NEGATIVE) A 10/12/24 13:00 Tissue Pathology See comment. 10/15/24 09:47 Blood Type B POSITIVE 10/17/24 14:14 Antibody Screen Negative 10/17/24 14:14 Crossmatch See Detail 10/17/24 14:14 Assessment and Plan 1: colon cancer, possible perforation and abscess .s/p resection . to D/C NGT , on liquid diet . 2: A Fib with dysrhythmias , on medications as mentioned above .. 3: CKD. d/w family in details about all these risk factors.. same plan , Problem Patient Problems: Patient Problems Anemia (Acute) D64.9 Stage 5 chronic kidney disease (Acute) N18.5 Abdominal pain (Acute) R10.9 Bedbound (Acute) Z74.01 Long-term (current) use of anticoagulants, INR goal 2.0-3.0 (Acute) Z79.01
[2024-10-21] MEDS: KLOR-CON 10 MEQ TAB PO SCH (09:19)
--- NOTE | 2024-10-21 09:46 | NOTE.SOAP ---
Soap Note Note for Day of Date of Exam: 10/21/24 Subjective Data Subjective Data: abdomen feeling better- off pressors as of 1 am this morning Objective Data Objective Data: tele: afib/occ v paced hr 80-100 bp 140/60 clear lungs no bowel sounds no edema labs: wbc 6.6 hct 29- down from 47 2 days ago- inr pending today but was 1.9 yesterday and he got coumadin, k 3.3 , cr 3.38,alb 1.6 Assessment Assessment: abd surgery/atrial fib/ dropping hct/coagulopathy/worsening renal insuffiency/poor nutrition status Plan Plan: just off pressors this early am- would give 24 hours of bp stability before adding back BB ( gut could use another day too)- once BB added and he absorbing- stop amio- with dropping hct- would hold off all anticoagulation for now until stable hct- risk of stroke w afib far less than risk of bleeding as 3 days post op and dropping hct
[2024-10-21] MEDS: TOPROL XL PO ONE (10:24)
[2024-10-21 10:45] LABS: INR 2.33 (0.8-1.3)
[2024-10-21] MEDS: KLOR-CON 10 MEQ TAB PO ONE (11:40)
[2024-10-21] MEDS: NEXTERONE IV 360 MG PREMIX* 360 MG/200 ML BAG IV SCH (16:12)
[2024-10-22 05:34] LABS: BASOPHILS % (AUTO) 0.1 % (0.2-1.0); EOSINOPHILS % (AUTO) 0.1 % (0.9-2.9); HEMATOCRIT 32.9 % (42.0-54.0); HEMOGLOBIN 10.8 g/dL (13.5-18.0); LYMPHOCYTES # (AUTO) 0.2 X10^3/uL (1.3-2.9); LYMPHOCYTES % (AUTO) 3.5 % (21.0-51.0); MEAN CORPUSCULAR HEMOGLOBIN 25.1 pg (27.0-34.0); MEAN CORPUSCULAR HGB CONC 32.7 g/dL (33.0-35.0); MEAN CORPUSCULAR VOLUME 76.8 fL (80.0-100.0); MEAN PLATELET VOLUME 7.3 fL (7.4-11.0); MONOCYTES # (AUTO) 0.4 x10^3/uL (0.3-0.8); MONOCYTES % (AUTO) 5.4 % (0.0-13.0); NEUTROPHILS # (AUTO) 6.5 x10^3/uL (2.2-4.8); NEUTROPHILS % (AUTO) 90.9 % (42.0-75.0); PLATELET COUNT 175 X10^3/uL (150.0-450.0); RED BLOOD COUNT 4.28 X10^6/uL (4.7-6.0); RED CELL DISTRIBUTION WIDTH 24.8 % (11.6-16.5); WHITE BLOOD COUNT 7.2 X10^3/uL (3.6-10.0)
[2024-10-22 05:50] LABS: CALCIUM 9.1 mg/dL (8.5-10.1); CARBON DIOXIDE 17.3 mmol/L (21-32); COR CA(FOR HYPOALB) 10.7 mg/dL (8.5-10.1); CREATININE 3.3 mg/dL (0.70-1.30); MAGNESIUM 2.1 mg/dL (2.0-2.9); POTASSIUM 3.4 mmol/L (3.5-5.1); TOTAL PROTEIN 4.8 g/dL (6.4-8.2)
[2024-10-22] MEDS ORDERED: CONSULT PHARMACY - POTASSIUM & MAGNESIUM XX SCH (06:00)
[2024-10-22 06:46] LABS: BAND NEUTROPHILS % 3 % (0-10)
[2024-10-22 06:47] LABS: ANISOCYTOSIS 3+; BURR CELLS 2+; HYPOCHROMASIA SLIGHT; MICROCYTOSIS SLIGHT; PLATELET MORPHOLOGY COMMENT NORMAL (NORMAL); POIKILOCYTOSIS 1+
[2024-10-22] MEDS: NEXTERONE IV ONE (07:16)
[2024-10-22] MEDS: D5W 250 ML IV 250 ML IV ONE (07:16)
[2024-10-22] MEDS: CORDARONE INJ 150 MG VIAL ONE (07:17)
[2024-10-22 07:38] LABS: INR 2.91 (0.8-1.3)
[2024-10-22] MEDS ORDERED: NS 1,000 ML IV 1,000 ML IV ONE (08:57)
[2024-10-22] MEDS ORDERED: TOPROL XL PO ONE (09:50)
[2024-10-22] MEDS: LASIX IVP ONE (10:06)
[2024-10-22] MEDS: SOLU-Cortef INJ IVP SCH (10:07)
[2024-10-22] MEDS: KLOR-CON 10 MEQ TAB PO ONE (10:08)
[2024-10-22] MEDS ORDERED: KLOR-CON 10 MEQ TAB PO ONE (11:00)
[2024-10-22] MEDS: MEPHYTON PO ONE ×2 (11:32→12:00)
[2024-10-22] MEDS: DRUG FILTER EXTENSION SET ONE (12:00)
[2024-10-22] MEDS: CLINIMIX 5 %/20 % 1,000 ML with MVI INJ (ADULT) 10 ML, MAGNESIUM SULFATE 50% INJ VIAL 1 G IV SCH (12:00)
--- NOTE | 2024-10-22 13:17 | DR.PROGNOT ---
HOSPITAL PROGRESS NOTE Progress Note for Day of: Progress Note Date: 10/22/24 Chief Complaint Chief Complaint: a/p RT colectomy for colon ca and abscess drainage day 4. Stable vital signs today. Having large amount of ascites is draining through the [place].. WBC 7.2, hemoglobin 10.8, platelet 175, PT 29, INR 2.9, potassium 3.4, BUN 54, creatinine 3.3, albumin 2. Patient is alert and cooperative, Lung is clear, abdomen is soft with positive bowel sounds. Scrotum is distended and edematous consistent with arthritis and hypoalbuminemia. To advance diet, continue IV albumin, TPN. Past Medical Family Social History Past Med/Fam/Surg Hx: No changes since H&P Allergies: Allergies No Known Drug Allergies Allergy (Verified 10/11/24 21:07) Review Of Systems ROS: No change since H&P and Changes notes (describe) Vital Signs Vital Signs: Vital Signs Temperature 97.7 F Pulse Rate 76 Pulse Rate 75 Pulse Rate 78 Pulse Rate 79 Pulse Rate 77 Pulse Rate 74 Pulse Rate 77 Pulse Rate 78 Pulse Rate 74 Pulse Rate 76 Pulse Rate 75 Pulse Rate 74 Pulse Rate 72 Pulse Rate 78 Pulse Rate 78 Pulse Rate 77 Pulse Rate 71 Respiratory Rate 26 Respiratory Rate 26 Respiratory Rate 26 Respiratory Rate 27 Respiratory Rate 24 Respiratory Rate 29 Respiratory Rate 25 Respiratory Rate 29 Respiratory Rate 31 Respiratory Rate 31 Respiratory Rate 21 Respiratory Rate 26 Respiratory Rate 28 Respiratory Rate 27 Blood Pressure 157/74 Blood Pressure 150/72 Blood Pressure 169/74 Blood Pressure 160/88 Blood Pressure 149/70 Blood Pressure 153/73 Blood Pressure 158/74 Blood Pressure 158/74 O2 Sat by Pulse Oximetry 96 O2 Sat by Pulse Oximetry 97 O2 Sat by Pulse Oximetry 97 O2 Sat by Pulse Oximetry 97 O2 Sat by Pulse Oximetry 97 O2 Sat by Pulse Oximetry 97 O2 Sat by Pulse Oximetry 97 O2 Sat by Pulse Oximetry 99 O2 Sat by Pulse Oximetry 100 O2 Sat by Pulse Oximetry 99 O2 Sat by Pulse Oximetry 100 O2 Sat by Pulse Oximetry 98 O2 Sat by Pulse Oximetry 99 O2 Sat by Pulse Oximetry 98 O2 Sat by Pulse Oximetry 98 O2 Sat by Pulse Oximetry 100 O2 Sat by Pulse Oximetry 100 Physical Exam Oriented: Normal Eyes: Normal Ear: Normal Nose: Normal Throat: Normal Respiratory: Normal Cardiovascular: Other (A-fib with occasional PVCs but blood pressure is stable.) GI:Auscultation: Normal GI: Tenderness: Other (full abdomen , soft BS-. mild tenderness ..) Mood Description: Calm Speech Pattern: Clear and Appropriate Laboratory and Diagnostics 10/22/24 05:01 10/22/24 05:01 Labs: 10/18/24 15:49 Urine,Catheterized Urine Culture - Final 10/18/24 13:24 Abdomen Wound Gram Stain - Final 10/18/24 13:24 Abdomen Wound Culture - Final Pseudomonas Alcaligenes/Pseudo 10/15/24 11:45 Urine,Catheterized Urine Culture - Final Pseudomonas Aeruginosa Laboratory WBC 7.2 X10^3/uL (3.6-10.0) 10/22/24 05:01 RBC 4.28 X10^6/uL (4.7-6.0) L 10/22/24 05:01 Hgb 10.8 g/dL (13.5-18.0) L 10/22/24 05:01 Hct 32.9 % (42.0-54.0) L 10/22/24 05:01 MCV 76.8 fL (80.0-100.0) L 10/22/24 05:01 MCH 25.1 pg (27.0-34.0) L 10/22/24 05:01 MCHC 32.7 g/dL (33.0-35.0) L 10/22/24 05:01 RDW 24.8 % (11.6-16.5) H 10/22/24 05:01 Plt Count 175 X10^3/uL (150.0-450.0) 10/22/24 05:01 Plt Count Comment Adequate (ADEQUATE) 10/22/24 05:01 MPV 7.3 fL (7.4-11.0) L 10/22/24 05:01 Neut % (Auto) 90.9 % (42.0-75.0) H 10/22/24 05:01 Lymph % (Auto) 3.5 % (21.0-51.0) L 10/22/24 05:01 [place] % (Auto) 5.4 % (0.0-13.0) 10/22/24 05:01 Eos % (Auto) 0.1 % (0.9-2.9) L 10/22/24 05:01 Baso % (Auto) 0.1 % (0.2-1.0) L 10/22/24 05:01 Neut # (Auto) 6.5 x10^3/uL (2.2-4.8) H 10/22/24 05:01 Lymph # (Auto) 0.2 X10^3/uL (1.3-2.9) L 10/22/24 05:01 [place] # (Auto) 0.4 x10^3/uL (0.3-0.8) 10/22/24 05:01 Eos # (Auto) 0.0 x10^3/uL (0.0-0.2) 10/22/24 05:01 Baso # (Auto) 0.0 X10^3/uL (0.0-0.1) 10/22/24 05:01 Absolute Nucleated RBC 0.1 /100WBC 10/22/24 05:01 Total Counted 100 10/22/24 05:01 Neutrophils % (Manual) 95 % (39-76) H 10/22/24 05:01 Band Neutrophils % 3 % (0-10) 10/22/24 05:01 Lymphocytes % (Manual) 2 % (13-43) L 10/22/24 05:01 Monocytes % (Manual) 2 % (4-9) L 10/21/24 06:05 Plt Morphology Comment Normal (NORMAL) 10/22/24 05:01 RBC Morphology Abnormal (NORMAL) 10/22/24 05:01 Hypochromasia Slight A 10/22/24 05:01 Poikilocytosis 1+ A 10/22/24 05:01 Anisocytosis 3+ A 10/22/24 05:01 Microcytosis Slight A 10/22/24 05:01 Target Cells Slight A 10/18/24 15:43 Tear Drop Cells 1+ A 10/18/24 18:40 Ovalocytes Slight A 10/18/24 15:43 Yosef Cells 2+ A 10/22/24 05:01 PT 29.4 SECONDS (11.8-14.3) 10/22/24 05:01 INR Target Range - 10/22/24 05:01 INR 2.91 (0.8-1.3) H 10/22/24 05:01 APTT 43.9 SECONDS (22.9-36.5) H 10/12/24 07:55 PTT Comment - 10/12/24 07:55 Sodium 139 mmol/L (136-145) 10/22/24 05:01 Corrected Sodium 142 mmol/L (136-145) 10/22/24 05:01 Potassium 3.4 mmol/L (3.5-5.1) L 10/22/24 05:01 Chloride 107 mmol/L (98-107) 10/22/24 05:01 Carbon Dioxide 17.3 mmol/L (21-32) L 10/22/24 05:01 BUN 54 mg/dL (7-18) H 10/22/24 05:01 Creatinine 3.30 mg/dL (0.70-1.30) H 10/22/24 05:01 Est GFR (MDRD) Af Amer 23 (>60) L 10/22/24 05:01 Est GFR (MDRD) Non-Af 19 (>60) L 10/22/24 05:01 Glucose 239 mg/dL (65-99) H 10/22/24 05:01 POC Glucose (mg/dL) 215 mg/dL (65-99) H 10/19/24 02:55 Calcium 9.1 mg/dL (8.5-10.1) 10/22/24 05:01 Corrected Calcium 10.7 mg/dL (8.5-10.1) H 10/22/24 05:01 Phosphorus 4.0 mg/dL (2.6-4.7) 10/20/24 04:59 Phosphorus Cancelled 10/20/24 04:59 Magnesium 2.1 mg/dL (2.0-2.9) 10/22/24 05:01 Ferritin 47 ng/mL (26-388) 10/12/24 07:55 Total Bilirubin 0.50 mg/dL (0.2-1.0) 10/22/24 05:01 AST 12 Units/L (15-37) L 10/22/24 05:01 ALT 7 Units/L (12-78) L 10/22/24 05:01 Alkaline Phosphatase 130 Units/L (46-116) H 10/22/24 05:01 Total Protein 4.8 g/dL (6.4-8.2) L 10/22/24 05:01 Albumin 2.0 g/dL (3.4-5.0) L 10/22/24 05:01 Globulin 2.8 g/dL (2.5-4.5) 10/22/24 05:01 Albumin/Globulin Ratio 0.7 Ratio (1.1-2.1) L 10/22/24 05:01 Prealbumin 5.3 mg/dL (18-35.7) L 10/20/24 04:59 Triglycerides 79 mg/dL (0-150) 10/20/24 04:59 Triglycerides Cancelled 10/20/24 04:59 Lipase 33 Units/L (16-77) 10/11/24 21:25 Specimen Type Catherized urine 10/18/24 15:49 Urine Color Yellow (YELLOW) 10/18/24 15:49 Urine Appearance Cloudy (CLEAR) 10/18/24 15:49 Urine pH 5.0 (5.0 - 8.0) 10/18/24 15:49 Ur Specific [place] 1.020 (1.000-1.030) 10/18/24 15:49 Urine Protein 3+ (NEGATIVE) 10/18/24 15:49 Urine Glucose (UA) Negative (NEGATIVE) 10/18/24 15:49 Urine Ketones Negative (NEGATIVE) 10/18/24 15:49 Urine Blood 5+ (NEGATIVE) 10/18/24 15:49 Urine Nitrite Negative (NEGATIVE) 10/18/24 15:49 Urine Bilirubin Negative (NEGATIVE) 10/18/24 15:49 Urine Urobilinogen Normal (NORMAL) 10/18/24 15:49 Ur Leukocyte Esterase 3+ (NEGATIVE) 10/18/24 15:49 Urine RBC Tntc /HPF (0-3) A 10/18/24 15:49 Urine WBC Tntc /HPF (0-5) A 10/18/24 15:49 Ur Squamous Epith Cells Rare /HPF (NEGATIVE) 10/18/24 15:49 Amorphous Sediment 3+ /HPF (NEGATIVE) 10/18/24 15:49 Urine Bacteria 2+ /HPF (NEGATIVE) 10/18/24 15:49 Ur Culture Indicated? Yes/culture set up 10/18/24 15:49 Stl Occult Blood (IFOB) Positive (NEGATIVE) A 10/12/24 13:00 Resp Viral Panel (PCR) See scanned report 10/18/24 15:49 Tissue Pathology See comment. 10/15/24 09:47 Blood Type B POSITIVE 10/17/24 14:14 Antibody Screen Negative 10/17/24 14:14 Crossmatch See Detail 10/17/24 14:14 Assessment and Plan 1: colon cancer, possible perforation and abscess .s/p resection . On liquid diet. 2: A Fib with dysrhythmias , on medications as mentioned above .. 3: CKD. d/w family in details about all these risk factors.. same plan , 4: Draining large amount of ascites. On TPN and albumin supplement. Problem Patient Problems: Patient Problems Anemia (Acute) D64.9 Stage 5 chronic kidney disease (Acute) N18.5 Abdominal pain (Acute) R10.9 Bedbound (Acute) Z74.01 Long-term (current) use of anticoagulants, INR goal 2.0-3.0 (Acute) Z79.01
[2024-10-22] MEDS: NS 1,000 ML IV 1,000 ML IV SCH (14:02)
--- NOTE | 2024-10-22 14:03 | EKG ---
Test Reason : SOB Blood Pressure : */* mmHG Vent. Rate : 94 BPM Atrial Rate : * BPM P-R Int : * ms QRS Dur : 86 ms QT Int : 322 ms P-R-T Axes : * -7 34 degrees QTc Int : 402 ms Atrial fibrillation with occasional ventricular-paced complexes Nonspecific ST abnormality Abnormal ECG When compared with ECG of 18-OCT-2024 16:29, Vent. rate has decreased BY 26 BPM Confirmed by Mingo Patel MD ([id number]) on 10/22/2024 2:53:09 PM Referred By: Confirmed By: Mingo Patel MD
[2024-10-22] MEDS: ALPRAZOLAM ODT PO SCH (20:14)
[2024-10-23] MEDS: DRUG FILTER EXTENSION SET ONE (01:47)
[2024-10-23] MEDS: LOPRESSOR INJ 5 MG AMP IVP PRN (04:06)
[2024-10-23 05:56] LABS: BASOPHILS % (AUTO) 0.1 % (0.2-1.0); HEMATOCRIT 36.6 % (42.0-54.0); HEMOGLOBIN 11.6 g/dL (13.5-18.0); LYMPHOCYTES # (AUTO) 0.2 X10^3/uL (1.3-2.9); LYMPHOCYTES % (AUTO) 1.7 % (21.0-51.0); MEAN CORPUSCULAR HEMOGLOBIN 24.8 pg (27.0-34.0); MEAN CORPUSCULAR HGB CONC 31.5 g/dL (33.0-35.0); MEAN CORPUSCULAR VOLUME 78.7 fL (80.0-100.0); MEAN PLATELET VOLUME 7.5 fL (7.4-11.0); MONOCYTES # (AUTO) 0.6 x10^3/uL (0.3-0.8); MONOCYTES % (AUTO) 4.8 % (0.0-13.0); NEUTROPHILS # (AUTO) 11.3 x10^3/uL (2.2-4.8); NEUTROPHILS % (AUTO) 93.4 % (42.0-75.0); PLATELET COUNT 189 X10^3/uL (150.0-450.0); RED BLOOD COUNT 4.66 X10^6/uL (4.7-6.0); RED CELL DISTRIBUTION WIDTH 24.8 % (11.6-16.5); WHITE BLOOD COUNT 12.1 X10^3/uL (3.6-10.0)
[2024-10-23 06:00] LABS: ALANINE AMINOTRANSFERASE < 6 Units/L (12-78); ALBUMIN 2.1 g/dL (3.4-5.0); ALKALINE PHOSPHATASE 137 Units/L (46-116); ASPARTATE AMINO TRANSFERASE 11 Units/L (15-37); BLOOD UREA NITROGEN 69 mg/dL (7-18); CALCIUM 8.9 mg/dL (8.5-10.1); CARBON DIOXIDE 17.2 mmol/L (21-32); CHLORIDE 105 mmol/L (98-107); COR CA(FOR HYPOALB) 10.4 mg/dL (8.5-10.1); COR NA(FOR HYPERGLY) 144 mmol/L (136-145); GLUCOSE 461 mg/dL (65-99); MAGNESIUM 2.1 mg/dL (2.0-2.9); SODIUM 135 mmol/L (136-145); TOTAL PROTEIN 4.6 g/dL (6.4-8.2); eGFR NON BLACK RACES 19 (>60)
[2024-10-23 06:09] LABS: POTASSIUM 2.7 mmol/L (3.5-5.1)
[2024-10-23 06:34] LABS: ANISOCYTOSIS 3+; BURR CELLS 2+; HYPOCHROMASIA SLIGHT; MICROCYTOSIS SLIGHT; PLATELET MORPHOLOGY COMMENT NORMAL (NORMAL); POIKILOCYTOSIS SLIGHT
[2024-10-23] MEDS ORDERED: CONSULT PHARMACY - POTASSIUM & MAGNESIUM XX SCH (07:00)
[2024-10-23] MEDS ORDERED: PHARMACY CONSULT - TPN XX SCH (07:00)
[2024-10-23 07:22] LABS: INR 2.54 (0.8-1.3)
--- NOTE | 2024-10-23 07:59 | RAD ---
EXAMINATION:CHEST, 1 VIEWHISTORY:SOB; .COMPARISON STUDY:10/19/2024TECHNIQUE:One viewFINDINGS:Removal of endotracheal tube and nasogastric tube. Right-sided PICC line unchanged. Cardiomegaly is noted. Left-sided pacemaker. Worsening bilateral opacities and perihilar infiltrates suggesting CHF with bilateral effusions. No pneumothorax. Hilar and mediastinal structures and bony structures are unchanged. EKG leads overlie the chest.IMPRESSION:Removal of endotracheal tube and nasogastric tube.Worsening bilateral opacities which may represent CHF. Follow-up recommended.THIS IS AN ELECTRONICALLY VERIFIED FINAL REPORT10/23/2024 7:56 AM - Electronically signed by Carmelo Thompson MD
[2024-10-23] MEDS ORDERED: NS 1,000 ML IV 1,000 ML IV SCH (08:00)
--- NOTE | 2024-10-23 08:01 | RAD ---
EXAMINATION:CHEST, 1 VIEWHISTORY:CHF ; AFIB, DM SX: APPY, ORTHO, HERNIA REPAIR, PACEMAKER .COMPARISON STUDY:10/22/2024TECHNIQUE:One viewFINDINGS:Right-sided PICC line and left-sided pacemaker unchanged. Cardiomegaly. Slight decrease in bilateral opacities. No pneumothorax, new infiltrate or other change noted. EKG leads are present.IMPRESSION:Slight decrease in bilateral opacities. Follow-up recommendedTHIS IS AN ELECTRONICALLY VERIFIED FINAL REPORT10/23/2024 7:58 AM - Electronically signed by Carmelo Thompson MD
--- NOTE | 2024-10-23 09:08 | DR.PROGNOT ---
HOSPITAL PROGRESS NOTE Progress Note for Day of: Progress Note Date: 10/23/24 Chief Complaint Chief Complaint: a/p RT colectomy for colon ca and abscess drainage day 5. Stable vital signs today. Having large amount of ascites in [place].. Moderate shortness of breath. WBC 12.1, hemoglobin 10.8, platelet 189, PT 26, INR 2.5 potassium 2.7, BUN 69, creatinine 3.3, albumin 2.1 Patient is alert and cooperative, Lung is clear, abdomen is soft with positive bowel sounds. Scrotum is distended and edematous consistent with ascites and hypoalbuminemia. To advance diet, continue IV albumin, TPN. D/C other IVs, potassium and albumin supplement, proper control of blood sugar.. Past Medical Family Social History Past Med/Fam/Surg Hx: No changes since H&P Allergies: Allergies No Known Drug Allergies Allergy (Verified 10/11/24 21:07) Review Of Systems ROS: No change since H&P and Changes notes (describe) Vital Signs Vital Signs: Vital Signs Temperature 97.8 F Pulse Rate 73 Pulse Rate 77 Pulse Rate 87 Pulse Rate 87 Pulse Rate 91 Respiratory Rate 18 Respiratory Rate 18 Respiratory Rate 29 Respiratory Rate 21 Respiratory Rate 20 Respiratory Rate 25 Respiratory Rate 23 Respiratory Rate 26 Blood Pressure 141/66 Blood Pressure 156/69 Blood Pressure 151/73 Blood Pressure 162/79 Blood Pressure 168/93 O2 Sat by Pulse Oximetry 100 O2 Sat by Pulse Oximetry 100 O2 Sat by Pulse Oximetry 100 O2 Sat by Pulse Oximetry 100 O2 Sat by Pulse Oximetry 100 Physical Exam Oriented: Normal Eyes: Normal Ear: Normal Nose: Normal Throat: Normal Respiratory: Normal Cardiovascular: Other (A-fib with occasional PVCs but blood pressure is stable.) GI:Auscultation: Normal GI: Tenderness: Other (full abdomen , soft BS-. mild tenderness ..) Mood Description: Calm Speech Pattern: Clear and Appropriate Laboratory and Diagnostics 10/23/24 05:15 10/23/24 05:15 Labs: 10/18/24 15:49 Urine,Catheterized Urine Culture - Final 10/18/24 13:24 Abdomen Wound Gram Stain - Final 10/18/24 13:24 Abdomen Wound Culture - Final Pseudomonas Alcaligenes/Pseudo 10/15/24 11:45 Urine,Catheterized Urine Culture - Final Pseudomonas Aeruginosa Laboratory WBC 12.1 X10^3/uL (3.6-10.0) H 10/23/24 05:15 RBC 4.66 X10^6/uL (4.7-6.0) L 10/23/24 05:15 Hgb 11.6 g/dL (13.5-18.0) L 10/23/24 05:15 Hct 36.6 % (42.0-54.0) L 10/23/24 05:15 MCV 78.7 fL (80.0-100.0) L 10/23/24 05:15 MCH 24.8 pg (27.0-34.0) L 10/23/24 05:15 MCHC 31.5 g/dL (33.0-35.0) L 10/23/24 05:15 RDW 24.8 % (11.6-16.5) H 10/23/24 05:15 Plt Count 189 X10^3/uL (150.0-450.0) 10/23/24 05:15 Plt Count Comment Adequate (ADEQUATE) 10/23/24 05:15 MPV 7.5 fL (7.4-11.0) 10/23/24 05:15 Neut % (Auto) 93.4 % (42.0-75.0) H 10/23/24 05:15 Lymph % (Auto) 1.7 % (21.0-51.0) L 10/23/24 05:15 [place] % (Auto) 4.8 % (0.0-13.0) 10/23/24 05:15 Eos % (Auto) 0.0 % (0.9-2.9) L 10/23/24 05:15 Baso % (Auto) 0.1 % (0.2-1.0) L 10/23/24 05:15 Neut # (Auto) 11.3 x10^3/uL (2.2-4.8) H 10/23/24 05:15 Lymph # (Auto) 0.2 X10^3/uL (1.3-2.9) L 10/23/24 05:15 [place] # (Auto) 0.6 x10^3/uL (0.3-0.8) 10/23/24 05:15 Eos # (Auto) 0.0 x10^3/uL (0.0-0.2) 10/23/24 05:15 Baso # (Auto) 0.0 X10^3/uL (0.0-0.1) 10/23/24 05:15 Absolute Nucleated RBC 0.1 /100WBC 10/23/24 05:15 Total Counted 100 10/23/24 05:15 Neutrophils % (Manual) 95 % (39-76) H 10/23/24 05:15 Band Neutrophils % 3 % (0-10) 10/22/24 05:01 Lymphocytes % (Manual) 3 % (13-43) L 10/23/24 05:15 Monocytes % (Manual) 2 % (4-9) L 10/23/24 05:15 Plt Morphology Comment Normal (NORMAL) 10/23/24 05:15 RBC Morphology Abnormal (NORMAL) 10/23/24 05:15 Hypochromasia Slight A 10/23/24 05:15 Poikilocytosis Slight A 10/23/24 05:15 Anisocytosis 3+ A 10/23/24 05:15 Microcytosis Slight A 10/23/24 05:15 Target Cells Slight A 10/18/24 15:43 Tear Drop Cells 1+ A 10/18/24 18:40 Ovalocytes Slight A 10/18/24 15:43 [place] Cells 2+ A 10/23/24 05:15 PT 26.5 SECONDS (11.8-14.3) 10/23/24 07:06 INR Target Range - 10/23/24 07:06 INR 2.54 (0.8-1.3) H 10/23/24 07:06 APTT 43.9 SECONDS (22.9-36.5) H 10/12/24 07:55 PTT Comment - 10/12/24 07:55 Sodium 135 mmol/L (136-145) L 10/23/24 05:15 Corrected Sodium 144 mmol/L (136-145) 10/23/24 05:15 Potassium 2.7 mmol/L (3.5-5.1) L* 10/23/24 05:15 Chloride 105 mmol/L (98-107) 10/23/24 05:15 Carbon Dioxide 17.2 mmol/L (21-32) L 10/23/24 05:15 BUN 69 mg/dL (7-18) H 10/23/24 05:15 Creatinine 3.30 mg/dL (0.70-1.30) H 10/23/24 05:15 Est GFR (MDRD) Af Amer 23 (>60) L 10/23/24 05:15 Est GFR (MDRD) Non-Af 19 (>60) L 10/23/24 05:15 Glucose 461 mg/dL (65-99) H 10/23/24 05:15 POC Glucose (mg/dL) 215 mg/dL (65-99) H 10/19/24 02:55 Calcium 8.9 mg/dL (8.5-10.1) 10/23/24 05:15 Corrected Calcium 10.4 mg/dL (8.5-10.1) H 10/23/24 05:15 Phosphorus 4.0 mg/dL (2.6-4.7) 10/20/24 04:59 Phosphorus Cancelled 10/20/24 04:59 Magnesium 2.1 mg/dL (2.0-2.9) 10/23/24 05:15 Ferritin 47 ng/mL (26-388) 10/12/24 07:55 Total Bilirubin 0.50 mg/dL (0.2-1.0) 10/23/24 05:15 AST 11 Units/L (15-37) L 10/23/24 05:15 ALT < 6 Units/L (12-78) L 10/23/24 05:15 Alkaline Phosphatase 137 Units/L (46-116) H 10/23/24 05:15 Total Protein 4.6 g/dL (6.4-8.2) L 10/23/24 05:15 Albumin 2.1 g/dL (3.4-5.0) L 10/23/24 05:15 Globulin 2.5 g/dL (2.5-4.5) 10/23/24 05:15 Albumin/Globulin Ratio 0.8 Ratio (1.1-2.1) L 10/23/24 05:15 Prealbumin 5.3 mg/dL (18-35.7) L 10/20/24 04:59 Triglycerides 79 mg/dL (0-150) 10/20/24 04:59 Triglycerides Cancelled 10/20/24 04:59 Lipase 33 Units/L (16-77) 10/11/24 21:25 Specimen Type Catherized urine 10/18/24 15:49 Urine Color Yellow (YELLOW) 10/18/24 15:49 Urine Appearance Cloudy (CLEAR) 10/18/24 15:49 Urine pH 5.0 (5.0 - 8.0) 10/18/24 15:49 Ur Specific [place] 1.020 (1.000-1.030) 10/18/24 15:49 Urine Protein 3+ (NEGATIVE) 10/18/24 15:49 Urine Glucose (UA) Negative (NEGATIVE) 10/18/24 15:49 Urine Ketones Negative (NEGATIVE) 10/18/24 15:49 Urine Blood 5+ (NEGATIVE) 10/18/24 15:49 Urine Nitrite Negative (NEGATIVE) 10/18/24 15:49 Urine Bilirubin Negative (NEGATIVE) 10/18/24 15:49 Urine Urobilinogen Normal (NORMAL) 10/18/24 15:49 Ur Leukocyte Esterase 3+ (NEGATIVE) 10/18/24 15:49 Urine RBC Tntc /HPF (0-3) A 10/18/24 15:49 Urine WBC Tntc /HPF (0-5) A 10/18/24 15:49 Ur Squamous Epith Cells Rare /HPF (NEGATIVE) 10/18/24 15:49 Amorphous Sediment 3+ /HPF (NEGATIVE) 10/18/24 15:49 Urine Bacteria 2+ /HPF (NEGATIVE) 10/18/24 15:49 Ur Culture Indicated? Yes/culture set up 10/18/24 15:49 Stl Occult Blood (IFOB) Positive (NEGATIVE) A 10/12/24 13:00 Resp Viral Panel (PCR) See scanned report 10/18/24 15:49 Tissue Pathology See comment. 10/15/24 09:47 Blood Type B POSITIVE 10/17/24 14:14 Antibody Screen Negative 10/17/24 14:14 Crossmatch See Detail 10/17/24 14:14 Assessment and Plan 1: colon cancer, possible perforation and abscess .s/p resection . On liquid diet. 2: A Fib with dysrhythmias , on medications as mentioned above .. 3: CKD. d/w family in details about all these risk factors.. same plan , 4: Draining large amount of ascites. On TPN and albumin supplement. Problem Patient Problems: Patient Problems Anemia (Acute) D64.9 Stage 5 chronic kidney disease (Acute) N18.5 Abdominal pain (Acute) R10.9 Bedbound (Acute) Z74.01 Long-term (current) use of anticoagulants, INR goal 2.0-3.0 (Acute) Z79.01
[2024-10-23] MEDS: CLINIMIX 5 %/20 % 1,000 ML with MVI INJ (ADULT) 10 ML, MAGNESIUM SULFATE 50% INJ VIAL 1... IV SCH ×2 (10:00→12:35)
[2024-10-23] MEDS: ALPRAZOLAM ODT PO PRN (10:04)
[2024-10-23] MEDS: MICARDIS PO SCH (10:05)
[2024-10-23] MEDS: MICARDIS ONE (10:09)
[2024-10-23] MEDS: TOPROL XL PO ONE (10:11)
[2024-10-23] MEDS ORDERED: K-DUR TAB 20 MEQ PO SCH ×2 (11:00→14:00)
[2024-10-23] MEDS: LASIX IVP ONE (11:12)
[2024-10-23 15:24] LABS: CALCIUM 9.1 mg/dL (8.5-10.1); CARBON DIOXIDE 18.8 mmol/L (21-32); CREATININE 3.53 mg/dL (0.70-1.30)
[2024-10-23 15:29] LABS: POTASSIUM 2.7 mmol/L (3.5-5.1)
--- NOTE | 2024-10-23 16:07 | NOTE.SOAP ---
Soap Note Note for Day of Date of Exam: 10/23/24 Subjective Data Subjective Data: more sob, poor po, no BM- o2 requirememts up Objective Data Objective Data: p 90-100 afib/occ v paced i/o today minus one liter lungs : decreased bs bases abd: swollen/ascites srotum: badly swollen w skin irritation few BS legs: pneumatic device w minimal edema labs to note: wbc 12.1 inr 2.54 hct 36 k 2.7 cr 3.53 glu 500 alb 2.0 Assessment Assessment: afib/ post op/ ascites/scrotal edema/low albumin/resp distress i suspect from pleural fluid/ascites due to third spacing/low K/worsening renal function Plan Plan: minimize fluid intake/diuresis so outs> ins, drain ascites to help w breathing/scrotal edema
[2024-10-23] MEDS: K-DUR TAB 20 MEQ PO ONE ×2 (18:11→20:33)
[2024-10-24] MEDS: DRUG FILTER EXTENSION SET ONE ×2 (03:05→16:44)
[2024-10-24 05:42] LABS: BASOPHILS % (AUTO) 0.1 % (0.2-1.0); EOSINOPHILS % (AUTO) 0.1 % (0.9-2.9); HEMATOCRIT 35.2 % (42.0-54.0); HEMOGLOBIN 11.2 g/dL (13.5-18.0); LYMPHOCYTES # (AUTO) 0.3 X10^3/uL (1.3-2.9); LYMPHOCYTES % (AUTO) 2.1 % (21.0-51.0); MEAN CORPUSCULAR HEMOGLOBIN 24.6 pg (27.0-34.0); MEAN CORPUSCULAR HGB CONC 31.9 g/dL (33.0-35.0); MEAN CORPUSCULAR VOLUME 77.2 fL (80.0-100.0); MEAN PLATELET VOLUME 8.1 fL (7.4-11.0); MONOCYTES # (AUTO) 0.7 x10^3/uL (0.3-0.8); MONOCYTES % (AUTO) 4.9 % (0.0-13.0); NEUTROPHILS % (AUTO) 92.8 % (42.0-75.0); PLATELET COUNT 173 X10^3/uL (150.0-450.0); RED BLOOD COUNT 4.56 X10^6/uL (4.7-6.0); RED CELL DISTRIBUTION WIDTH 24.6 % (11.6-16.5)
[2024-10-24 05:54] LABS: ALBUMIN 2.1 g/dL (3.4-5.0); CALCIUM 9.3 mg/dL (8.5-10.1); CARBON DIOXIDE 17.9 mmol/L (21-32); COR CA(FOR HYPOALB) 10.8 mg/dL (8.5-10.1); CREATININE 3.26 mg/dL (0.70-1.30); MAGNESIUM 2.1 mg/dL (2.0-2.9); POTASSIUM 3.3 mmol/L (3.5-5.1); TOTAL PROTEIN 4.6 g/dL (6.4-8.2)
[2024-10-24 06:16] LABS: ANISOCYTOSIS 3+; HYPOCHROMASIA SLIGHT; MICROCYTOSIS SLIGHT; PLATELET MORPHOLOGY COMMENT NORMAL (NORMAL); POIKILOCYTOSIS PRESENT
[2024-10-24 06:17] LABS: BURR CELLS PRESENT; OVALOCYTES PRESENT
[2024-10-24] MEDS ORDERED: CONSULT PHARMACY - POTASSIUM & MAGNESIUM XX SCH (07:00)
[2024-10-24] MEDS: MICARDIS PO SCH (09:15)
[2024-10-24] MEDS ORDERED: NS 250 ML IV 25 ML IV PRN (09:17)
[2024-10-24] MEDS ORDERED: K-DUR TAB 20 MEQ PO SCH (10:00)
[2024-10-24] MEDS: TOPROL XL PO ONE (10:23)
[2024-10-24] MEDS: ZOSYN VIAL 3.375 GRAMS 3.375 G in NS 100 ML IV 100 ML IV SCH (10:24)
[2024-10-24] MEDS: DULCOLAX SUPPOSITORY 10 MG RECTAL ONE (11:23)
[2024-10-24] MEDS ORDERED: NS 1,000 ML IV 1,000 ML ONE (13:18)
[2024-10-24] MEDS: SOLU-Cortef INJ IVP SCH (13:20)
[2024-10-24] MEDS: NS 1,000 ML IV 1,000 ML IV ONE (13:20)
--- NOTE | 2024-10-24 13:21 | DR.PROGNOT ---
HOSPITAL PROGRESS NOTE Progress Note for Day of: Progress Note Date: 10/24/24 Chief Complaint Chief Complaint: a/p RT colectomy for colon ca and abscess drainage day 6. Stable vital signs today. Having large amount of ascites in [place].. Moderate shortness of breath. WBC 14, hemoglobin 10.8, platelet 189, PT 26, INR 2.5 potassium 3.3, BUN 73, creatinine 3.3, albumin 2.1 Patient is alert , not talking today Lung is clear, abdomen is soft with positive bowel sounds. No wound infection. scrotum is distended and edematous consistent with ascites and hypoalbuminemia. Same diet, continue IV albumin, TPN. D/C other IVs, potassium and albumin supplement, proper control of blood sugar.. Past Medical Family Social History Past Med/Fam/Surg Hx: No changes since H&P Allergies: Allergies No Known Drug Allergies Allergy (Verified 10/11/24 21:07) Review Of Systems ROS: No change since H&P and Changes notes (describe) Vital Signs Vital Signs: Vital Signs Temperature 97.8 F Pulse Rate 89 Pulse Rate 86 Pulse Rate 95 Pulse Rate 88 Respiratory Rate 25 Respiratory Rate 25 Respiratory Rate 29 Respiratory Rate 25 Respiratory Rate 26 Respiratory Rate 31 Respiratory Rate 30 Blood Pressure 120/56 Blood Pressure 103/58 O2 Sat by Pulse Oximetry 99 O2 Sat by Pulse Oximetry 100 O2 Sat by Pulse Oximetry 100 O2 Sat by Pulse Oximetry 100 Physical Exam Oriented: Normal Eyes: Normal Ear: Normal Nose: Normal Throat: Normal Respiratory: Normal Cardiovascular: Other (A-fib with occasional PVCs but blood pressure is stable.) GI:Auscultation: Normal GI: Tenderness: Other (full abdomen , soft BS-. mild tenderness ..) Mood Description: Calm Speech Pattern: Clear and Appropriate Laboratory and Diagnostics 10/24/24 04:54 10/24/24 04:54 Labs: 10/18/24 15:49 Urine,Catheterized Urine Culture - Final 10/18/24 13:24 Abdomen Wound Gram Stain - Final 10/18/24 13:24 Abdomen Wound Culture - Final Pseudomonas Alcaligenes/Pseudo 10/15/24 11:45 Urine,Catheterized Urine Culture - Final Pseudomonas Aeruginosa Laboratory WBC 14.0 X10^3/uL (3.6-10.0) H 10/24/24 04:54 RBC 4.56 X10^6/uL (4.7-6.0) L 10/24/24 04:54 Hgb 11.2 g/dL (13.5-18.0) L 10/24/24 04:54 Hct 35.2 % (42.0-54.0) L 10/24/24 04:54 MCV 77.2 fL (80.0-100.0) L 10/24/24 04:54 MCH 24.6 pg (27.0-34.0) L 10/24/24 04:54 MCHC 31.9 g/dL (33.0-35.0) L 10/24/24 04:54 RDW 24.6 % (11.6-16.5) H 10/24/24 04:54 Plt Count 173 X10^3/uL (150.0-450.0) 10/24/24 04:54 Plt Count Comment Adequate (ADEQUATE) 10/24/24 04:54 MPV 8.1 fL (7.4-11.0) 10/24/24 04:54 Neut % (Auto) 92.8 % (42.0-75.0) H 10/24/24 04:54 Lymph % (Auto) 2.1 % (21.0-51.0) L 10/24/24 04:54 [place] % (Auto) 4.9 % (0.0-13.0) 10/24/24 04:54 Eos % (Auto) 0.1 % (0.9-2.9) L 10/24/24 04:54 Baso % (Auto) 0.1 % (0.2-1.0) L 10/24/24 04:54 Neut # (Auto) 13.0 x10^3/uL (2.2-4.8) H 10/24/24 04:54 Lymph # (Auto) 0.3 X10^3/uL (1.3-2.9) L 10/24/24 04:54 [place] # (Auto) 0.7 x10^3/uL (0.3-0.8) 10/24/24 04:54 Eos # (Auto) 0.0 x10^3/uL (0.0-0.2) 10/24/24 04:54 Baso # (Auto) 0.0 X10^3/uL (0.0-0.1) 10/24/24 04:54 Absolute Nucleated RBC 0.0 /100WBC 10/24/24 04:54 Total Counted 100 10/24/24 04:54 Neutrophils % (Manual) 94 % (39-76) H 10/24/24 04:54 Band Neutrophils % 3 % (0-10) 10/22/24 05:01 Lymphocytes % (Manual) 5 % (13-43) L 10/24/24 04:54 Monocytes % (Manual) 1 % (4-9) L 10/24/24 04:54 Plt Morphology Comment Normal (NORMAL) 10/24/24 04:54 RBC Morphology Abnormal (NORMAL) 10/24/24 04:54 Hypochromasia Slight A 10/24/24 04:54 Poikilocytosis Present 10/24/24 04:54 Anisocytosis 3+ A 10/24/24 04:54 Microcytosis Slight A 10/24/24 04:54 Target Cells Slight A 10/18/24 15:43 Tear Drop Cells 1+ A 10/18/24 18:40 Ovalocytes Present 10/24/24 04:54 [place] Cells Present 10/24/24 04:54 PT 26.5 SECONDS (11.8-14.3) 10/23/24 07:06 INR Target Range - 10/23/24 07:06 INR 2.54 (0.8-1.3) H 10/23/24 07:06 APTT 43.9 SECONDS (22.9-36.5) H 10/12/24 07:55 PTT Comment - 10/12/24 07:55 Sodium 135 mmol/L (136-145) L 10/24/24 04:54 Corrected Sodium 141 mmol/L (136-145) 10/24/24 04:54 Potassium 3.3 mmol/L (3.5-5.1) L 10/24/24 04:54 Chloride 107 mmol/L (98-107) 10/24/24 04:54 Carbon Dioxide 17.9 mmol/L (21-32) L 10/24/24 04:54 BUN 75 mg/dL (7-18) H 10/24/24 04:54 Creatinine 3.26 mg/dL (0.70-1.30) H 10/24/24 04:54 Est GFR (MDRD) Af Amer 23 (>60) L 10/24/24 04:54 Est GFR (MDRD) Non-Af 19 (>60) L 10/24/24 04:54 Glucose 339 mg/dL (65-99) H 10/24/24 04:54 POC Glucose (mg/dL) 288 mg/dL (65-99) H 10/24/24 11:57 Calcium 9.3 mg/dL (8.5-10.1) 10/24/24 04:54 Corrected Calcium 10.8 mg/dL (8.5-10.1) H 10/24/24 04:54 Phosphorus 4.0 mg/dL (2.6-4.7) 10/20/24 04:59 Phosphorus Cancelled 10/20/24 04:59 Magnesium 2.1 mg/dL (2.0-2.9) 10/24/24 04:54 Ferritin 47 ng/mL (26-388) 10/12/24 07:55 Total Bilirubin 0.50 mg/dL (0.2-1.0) 10/24/24 04:54 AST 12 Units/L (15-37) L 10/24/24 04:54 ALT 6 Units/L (12-78) L 10/24/24 04:54 Alkaline Phosphatase 108 Units/L (46-116) 10/24/24 04:54 Total Protein 4.6 g/dL (6.4-8.2) L 10/24/24 04:54 Albumin 2.1 g/dL (3.4-5.0) L 10/24/24 04:54 Globulin 2.5 g/dL (2.5-4.5) 10/24/24 04:54 Albumin/Globulin Ratio 0.8 Ratio (1.1-2.1) L 10/24/24 04:54 Prealbumin 5.3 mg/dL (18-35.7) L 10/20/24 04:59 Triglycerides 79 mg/dL (0-150) 10/20/24 04:59 Triglycerides Cancelled 10/20/24 04:59 Lipase 33 Units/L (16-77) 10/11/24 21:25 Specimen Type Catherized urine 10/18/24 15:49 Urine Color Yellow (YELLOW) 10/18/24 15:49 Urine Appearance Cloudy (CLEAR) 10/18/24 15:49 Urine pH 5.0 (5.0 - 8.0) 10/18/24 15:49 Ur Specific [place] 1.020 (1.000-1.030) 10/18/24 15:49 Urine Protein 3+ (NEGATIVE) 10/18/24 15:49 Urine Glucose (UA) Negative (NEGATIVE) 10/18/24 15:49 Urine Ketones Negative (NEGATIVE) 10/18/24 15:49 Urine Blood 5+ (NEGATIVE) 10/18/24 15:49 Urine Nitrite Negative (NEGATIVE) 10/18/24 15:49 Urine Bilirubin Negative (NEGATIVE) 10/18/24 15:49 Urine Urobilinogen Normal (NORMAL) 10/18/24 15:49 Ur Leukocyte Esterase 3+ (NEGATIVE) 10/18/24 15:49 Urine RBC Tntc /HPF (0-3) A 10/18/24 15:49 Urine WBC Tntc /HPF (0-5) A 10/18/24 15:49 Ur Squamous Epith Cells Rare /HPF (NEGATIVE) 10/18/24 15:49 Amorphous Sediment 3+ /HPF (NEGATIVE) 10/18/24 15:49 Urine Bacteria 2+ /HPF (NEGATIVE) 10/18/24 15:49 Ur Culture Indicated? Yes/culture set up 10/18/24 15:49 Stl Occult Blood (IFOB) Positive (NEGATIVE) A 10/12/24 13:00 Resp Viral Panel (PCR) See scanned report 10/18/24 15:49 Tissue Pathology See comment. 10/15/24 09:47 Blood Type B POSITIVE 10/17/24 14:14 Antibody Screen Negative 10/17/24 14:14 Crossmatch See Detail 10/17/24 14:14 Assessment and Plan 1: colon cancer, possible perforation and abscess .s/p resection . On soft diet. 2: A Fib with dysrhythmias , on medications as mentioned above .. 3: CKD. And renal failure. d/w family in details about all these risk factors.. same plan , DNR, no intubation 4: Draining large amount of ascites. On TPN and albumin supplement. Problem Patient Problems: Patient Problems Anemia (Acute) D64.9 Stage 5 chronic kidney disease (Acute) N18.5 Abdominal pain (Acute) R10.9 Bedbound (Acute) Z74.01 Long-term (current) use of anticoagulants, INR goal 2.0-3.0 (Acute) Z79.01
[2024-10-24] MEDS: CLINIMIX 5 %/20 % 1,000 ML with MVI INJ (ADULT) 10 ML, MAGNESIUM SULFATE 50% INJ VIAL 1... IV SCH (16:25)
[2024-10-24] MEDS: NOREPINEPHRINE IV ONE (16:44)
[2024-10-24] MEDS: NS 500 ML IV 500 ML IV ONE (16:44)
[2024-10-24] MEDS: KLOR-CON 10 MEQ TAB PO SCH (20:25)
[2024-10-25] MEDS: DRUG FILTER EXTENSION SET ONE ×2 (02:00→18:00)
[2024-10-25 06:00] LABS: BASOPHILS % (AUTO) 0.1 % (0.2-1.0); LYMPHOCYTES # (AUTO) 0.3 X10^3/uL (1.3-2.9); MEAN CORPUSCULAR HEMOGLOBIN 24.8 pg (27.0-34.0); MONOCYTES # (AUTO) 0.4 x10^3/uL (0.3-0.8); NEUTROPHILS # (AUTO) 12.3 x10^3/uL (2.2-4.8)
[2024-10-25 06:05] LABS: HEMATOCRIT 33.7 % (42.0-54.0); HEMOGLOBIN 10.8 g/dL (13.5-18.0); LYMPHOCYTES % (AUTO) 1.9 % (21.0-51.0); MEAN CORPUSCULAR VOLUME 77.5 fL (80.0-100.0); MONOCYTES % (AUTO) 3.4 % (0.0-13.0); NEUTROPHILS % (AUTO) 94.6 % (42.0-75.0); PLATELET COUNT 167 X10^3/uL (150.0-450.0); RED BLOOD COUNT 4.34 X10^6/uL (4.7-6.0); RED CELL DISTRIBUTION WIDTH 25.2 % (11.6-16.5)
[2024-10-25 06:14] LABS: ALBUMIN 2.1 g/dL (3.4-5.0); CALCIUM 9.7 mg/dL (8.5-10.1); CARBON DIOXIDE 15.8 mmol/L (21-32); COR CA(FOR HYPOALB) 11.2 mg/dL (8.5-10.1); CREATININE 3.23 mg/dL (0.70-1.30); MAGNESIUM 2.3 mg/dL (2.0-2.9); POTASSIUM 4.4 mmol/L (3.5-5.1); TOTAL PROTEIN 4.5 g/dL (6.4-8.2)
[2024-10-25 06:24] LABS: INR 1.73 (0.8-1.3)
[2024-10-25 06:42] LABS: PLATELET MORPHOLOGY COMMENT NORMAL (NORMAL)
[2024-10-25 06:43] LABS: ANISOCYTOSIS 3+; HYPOCHROMASIA SLIGHT; MICROCYTOSIS SLIGHT
[2024-10-25 06:44] LABS: BURR CELLS PRESENT; POIKILOCYTOSIS 1+; SCHISTOCYTES PRESENT
[2024-10-25] MEDS: TOPROL XL PO ONE (09:38)
[2024-10-25] MEDS: CLINIMIX 5 %/20 % 1,000 ML with MVI INJ (ADULT) 10 ML, MAGNESIUM SULFATE 50% INJ VIAL 1... IV SCH (11:09)
[2024-10-25] MEDS: ZOSYN VIAL 3.375 GRAMS IV ONE (21:28)
[2024-10-26] MEDS: DRUG FILTER EXTENSION SET ONE (05:25)
[2024-10-26 07:44] LABS: BASOPHILS # (AUTO) 0.1 X10^3/uL (0.0-0.1); HEMOGLOBIN 11.7 g/dL (13.5-18.0); LYMPHOCYTES # (AUTO) 0.4 X10^3/uL (1.3-2.9); MEAN CORPUSCULAR HEMOGLOBIN 24.8 pg (27.0-34.0); MEAN CORPUSCULAR HGB CONC 31.9 g/dL (33.0-35.0); MEAN CORPUSCULAR VOLUME 77.6 fL (80.0-100.0); MEAN PLATELET VOLUME 7.7 fL (7.4-11.0)
[2024-10-26] MEDS ORDERED: TOPROL XL PO ONE (07:46)
[2024-10-26 07:47] LABS: BASOPHILS % (AUTO) 0.6 % (0.2-1.0); EOSINOPHILS % (AUTO) 0.1 % (0.9-2.9); HEMATOCRIT 36.6 % (42.0-54.0); LYMPHOCYTES % (AUTO) 3.1 % (21.0-51.0); MONOCYTES # (AUTO) 0.5 x10^3/uL (0.3-0.8); MONOCYTES % (AUTO) 3.9 % (0.0-13.0); NEUTROPHILS # (AUTO) 12.8 x10^3/uL (2.2-4.8); NEUTROPHILS % (AUTO) 92.3 % (42.0-75.0); PLATELET COUNT 221 X10^3/uL (150.0-450.0); RED BLOOD COUNT 4.72 X10^6/uL (4.7-6.0); RED CELL DISTRIBUTION WIDTH 25.3 % (11.6-16.5); WHITE BLOOD COUNT 13.9 X10^3/uL (3.6-10.0)
[2024-10-26 07:48] LABS: INR 1.55 (0.8-1.3)
[2024-10-26 07:55] LABS: ALBUMIN 2.2 g/dL (3.4-5.0); CALCIUM 10.4 mg/dL (8.5-10.1); COR CA(FOR HYPOALB) 11.8 mg/dL (8.5-10.1); CREATININE 3.22 mg/dL (0.70-1.30); POTASSIUM 4.5 mmol/L (3.5-5.1); TOTAL PROTEIN 4.9 g/dL (6.4-8.2)
[2024-10-26 07:57] LABS: CARBON DIOXIDE 13.8 mmol/L (21-32)
[2024-10-26 08:27] LABS: ANISOCYTOSIS 3+; BURR CELLS PRESENT; HYPOCHROMASIA SLIGHT; MICROCYTOSIS SLIGHT; PLATELET MORPHOLOGY COMMENT NORMAL (NORMAL); POIKILOCYTOSIS 1+
[2024-10-26] MEDS: MEPHYTON PO SCH (10:41)
[2024-10-26] MEDS: ELIQUIS PO SCH (10:41)
[2024-10-26 12:40] VITALS: O2SAT 100
[2024-10-26] MEDS: FLOMAX PO SCH (20:32)
[2024-10-26] MEDS: ALBUMIN HUMAN 25%- 100 ML 100 ML IV SCH (20:54)
--- NOTE | 2024-10-27 01:16 | RAD ---
PROCEDURE: Chest X-ray 1 View. HISTORY: hypoxia; . TECHNIQUE: AP view. COMPARISON: 10/23/2024. TECHNICAL QUALITY: Satisfactory. FINDINGS: Unchanged heart size with pacemaker on the left. Mediastinum and hilar regions show no masses or lymphadenopathy. Increased central vascularity similar to previous study. Edema and pleural fluid bilaterally. No acute bony abnormality. IMPRESSION: Unchanged congestive heart failure. THIS IS AN ELECTRONICALLY VERIFIED FINAL REPORT 10/27/2024 1:12 AM - Electronically signed by Jeff Ruelas MD
[2024-10-27 05:11] LABS: BASOPHILS # (AUTO) 0.1 X10^3/uL (0.0-0.1); BASOPHILS % (AUTO) 0.5 % (0.2-1.0); HEMATOCRIT 34.3 % (42.0-54.0); HEMOGLOBIN 10.9 g/dL (13.5-18.0); LYMPHOCYTES # (AUTO) 0.4 X10^3/uL (1.3-2.9); LYMPHOCYTES % (AUTO) 2.6 % (21.0-51.0); MEAN CORPUSCULAR HEMOGLOBIN 24.5 pg (27.0-34.0); MEAN CORPUSCULAR HGB CONC 31.7 g/dL (33.0-35.0); MEAN CORPUSCULAR VOLUME 77.3 fL (80.0-100.0); MEAN PLATELET VOLUME 7.7 fL (7.4-11.0); MONOCYTES # (AUTO) 0.4 x10^3/uL (0.3-0.8); MONOCYTES % (AUTO) 3.1 % (0.0-13.0); NEUTROPHILS # (AUTO) 13.2 x10^3/uL (2.2-4.8); NEUTROPHILS % (AUTO) 93.8 % (42.0-75.0); PLATELET COUNT 234 X10^3/uL (150.0-450.0); RED BLOOD COUNT 4.43 X10^6/uL (4.7-6.0); RED CELL DISTRIBUTION WIDTH 26.1 % (11.6-16.5); WHITE BLOOD COUNT 14.1 X10^3/uL (3.6-10.0)
[2024-10-27 05:20] LABS: ALBUMIN 2.7 g/dL (3.4-5.0); CALCIUM 10.9 mg/dL (8.5-10.1); COR CA(FOR HYPOALB) 11.9 mg/dL (8.5-10.1); CREATININE 3.21 mg/dL (0.70-1.30); POTASSIUM 4.6 mmol/L (3.5-5.1)
[2024-10-27 05:29] LABS: HYPOCHROMASIA SLIGHT; PLATELET MORPHOLOGY COMMENT NORMAL (NORMAL); POIKILOCYTOSIS PRESENT
[2024-10-27 05:30] LABS: ANISOCYTOSIS 3+; BURR CELLS PRESENT; MICROCYTOSIS SLIGHT; OVALOCYTES PRESENT
[2024-10-27] MEDS: DRUG FILTER EXTENSION SET ONE ×2 (05:57→18:48)
[2024-10-27] MEDS ORDERED: TOPROL XL PO ONE (07:38)
[2024-10-27] MEDS ORDERED: NS 1,000 ML IV 1,000 ML IV SCH (09:00)
[2024-10-27] MEDS: LASIX IVP ONE (10:55)
[2024-10-27] MEDS: MORPHINE SULFATE INJ 2 MG INJ IVP PRN (11:11)
[2024-10-27] MEDS: CLINIMIX 5 %/20 % 1,000 ML with MVI INJ (ADULT) 10 ML, MAGNESIUM SULFATE 50% INJ VIAL 1... IV SCH (18:18)
[2024-10-28 04:59] LABS: HEMATOCRIT 33.4 % (42.0-54.0); HEMOGLOBIN 10.6 g/dL (13.5-18.0); LYMPHOCYTES # (AUTO) 0.3 X10^3/uL (1.3-2.9); MEAN CORPUSCULAR HGB CONC 31.7 g/dL (33.0-35.0); MONOCYTES # (AUTO) 0.6 x10^3/uL (0.3-0.8); NEUTROPHILS # (AUTO) 14.4 x10^3/uL (2.2-4.8)
[2024-10-28 05:04] LABS: BASOPHILS % (AUTO) 0.1 % (0.2-1.0); MEAN CORPUSCULAR HEMOGLOBIN 24.8 pg (27.0-34.0); MEAN CORPUSCULAR VOLUME 78.2 fL (80.0-100.0); MEAN PLATELET VOLUME 7.5 fL (7.4-11.0); NEUTROPHILS % (AUTO) 93.9 % (42.0-75.0); PLATELET COUNT 214 X10^3/uL (150.0-450.0); RED BLOOD COUNT 4.27 X10^6/uL (4.7-6.0); RED CELL DISTRIBUTION WIDTH 26.2 % (11.6-16.5); WHITE BLOOD COUNT 15.4 X10^3/uL (3.6-10.0)
[2024-10-28 05:09] LABS: ALBUMIN 3.1 g/dL (3.4-5.0); CALCIUM 11.2 mg/dL (8.5-10.1); COR CA(FOR HYPOALB) 11.9 mg/dL (8.5-10.1); CREATININE 3.36 mg/dL (0.70-1.30); MAGNESIUM 2.8 mg/dL (2.0-2.9); POTASSIUM 3.5 mmol/L (3.5-5.1)
[2024-10-28 05:27] LABS: CARBON DIOXIDE 13.5 mmol/L (21-32)
[2024-10-28 05:29] LABS: HYPOCHROMASIA SLIGHT; PLATELET MORPHOLOGY COMMENT NORMAL (NORMAL)
[2024-10-28 05:30] LABS: ANISOCYTOSIS 3+; BURR CELLS PRESENT; MICROCYTOSIS SLIGHT; OVALOCYTES PRESENT; POIKILOCYTOSIS PRESENT
[2024-10-28 09:31] VITALS: RESP 25; TEMP 97.4
[2024-10-28 10:20] VITALS: BP 118/64; PULSE 75
--- NOTE | 2024-10-28 10:53 | RAD ---
EXAM: Portable AP chest HISTORY: Hypoxia COMPARISON: 10/26/2024 FINDINGS: Similar cardiomegaly with stable pacemaker. Bilateral airspace disease/edema and pleural effusions, right larger than left. Right PICC again noted extending to the SVC. IMPRESSION: No change in appearance of CHF. THIS IS AN ELECTRONICALLY VERIFIED FINAL REPORT 10/28/2024 10:50 AM - Electronically signed by Jose Storm MD
== END 2024-10-28 12:05 | disposition hospice, home (50) | DRG 329 ==
LOC: ICU 20:33 → MED/SURG 20:33 → ER 20:33 → MED/SURG 10-12 00:21 → ICU 10-18 15:25 → MED/SURG 10-20 08:40
PROVIDERS: ADMIT Obstetrics & Gynecology Obstetrics; ATTEND Obstetrics & Gynecology Obstetrics